=== PATIENT | female | born 1955 | race Caucasian/White ===

== ENCOUNTER → 2016-08-27 | Outpatient (CLI) | payer OTHER ==
[~2016-08-27] MED LIST: HYDR25TA4 PO; IBAN150T PO; LISI40TA PO
[2016-08-27 17:33] LABS: ALT/SGPT 23 U/L (12-78); AST/SGOT 17 U/L (15-37); BLOOD UREA NITROGEN 11 mg/dl (7-18); BUN/CREATININE RATIO 14.4 (10-20); CALCIUM 9.3 mg/dl (8.5-10.1); CARBON DIOXIDE 27 mmol/L (21-32); CHLORIDE 104 mmol/L (98-107); CREATININE 0.75 mg/dl (0.60-1.20); GLUCOSE 98 mg/dl (70-99); POTASSIUM 3.9 mmol/L (3.5-5.1); SODIUM 139 mmol/L (136-145)
[2016-08-27 17:36] LABS: ALB/GLOB RATIO 0.9 (0.9-2); ALKALINE PHOSPHATASE 91 U/L (45-117); BASO % 0.2 %; BASO ABS # 0.02 K/uL (0-0.2); CHOLESTEROL 226 mg/dl (0-200); CHOLESTEROL/HDL RATIO 2.7; COMPLETE YES; EOS % 2.2 %; HDL CHOLESTEROL 85 mg/dl; HEMATOCRIT 41.5 % (37-47); IG% 0.2 %; LDL CHOLESTEROL CALCULATED 117 mg/dl; LYMPH % 34.9 %; MEAN CELL VOLUME 85.9 fL (80-100); MEAN CORPUSCULAR HEMOGLOBIN 29.8 pg (25-34); MEAN CORPUSCULAR HGB CONC 34.7 g/dl (32-36); MEAN PLATELET VOLUME 9.1 fL (7.4-10.4); NEUT % 57.5 %; PLATELET COUNT 247 K/uL (130-400); RED BLOOD COUNT 4.83 M/uL (4.2-5.4); TRIGLYCERIDES 120 mg/dl (0-150); VERY LOW DENSITY LIPOPROT CALC 24 mg/dl; WHITE BLOOD COUNT 9.17 K/uL (4.8-10.8)
== END | disposition home or self-care (01) ==
LOC: C.LABBFT 16:50
PROVIDERS: ATTEND Internal Medicine
DX: I10 Essential (primary) hypertension (principal)

== ENCOUNTER → 2017-11-19 | Outpatient (CLI) | payer OTHER ==
--- NOTE | 2017-11-19 10:27 | DIAGNOSTIC IMAGING REPORT ---
AP PELVIS ONE VIEW, LEFT HIP 2 VIEWS HISTORY: M25.552 Hip pain, [id number] COMPARISON: None. FINDINGS: There is no fracture or dislocation. Soft tissues are unremarkable. The sacrum is intact. Mild right and moderate left hip osteoarthritis demonstrated by cartilage space narrowing, small marginal osteophytes, and subchondral sclerosis. IMPRESSION: 1. No fracture or dislocation within the pelvis or hips. 2. Moderate left and mild right hip osteoarthritis. Electronically signed by: Reggie Hernandez M.D. 11/19/2017 10:25 AM Dictated Date/Time: 11/19/2017 10:22 AM
[2017-11-19 10:40] LABS: BASO % 0.3 %; BASO ABS # 0.02 K/uL (0-0.2); EOS % 0.6 %; EOS ABS # 0.04 K/uL (0-0.5); HEMATOCRIT 41.7 % (37-47); HEMOGLOBIN 14.4 g/dL (12.0-16.0); IG# 0.01 K/uL (0.00-0.02); LYMPH % 37.7 %; LYMPH ABS # 2.49 K/uL (1.2-3.4); MEAN CELL VOLUME 88.3 fL (80-100); MEAN CORPUSCULAR HEMOGLOBIN 30.5 pg (25-34); MEAN CORPUSCULAR HGB CONC 34.5 g/dl (32-36); MEAN PLATELET VOLUME 9.1 fL (7.4-10.4); MONO % 6.5 %; MONO ABS # 0.43 K/uL (0.11-0.59); NEUT % 54.7 %; NEUT ABS # 3.62 K/uL (1.4-6.5); PLATELET COUNT 201 K/uL (130-400); RED CELL DISTRIBUTION WIDTH CV 12.7 % (11.5-14.5); RED CELL DISTRIBUTION WIDTH SD 40.7 fL (36.4-46.3); WHITE BLOOD COUNT 6.61 K/uL (4.8-10.8)
--- NOTE | 2017-11-19 10:41 | DIAGNOSTIC IMAGING REPORT ---
L-SPINE MIN 4 VIEWS ROUTINE CLINICAL HISTORY: Lumbar and left hip pain. COMPARISON: None FINDINGS: There are 5 lumbar type vertebra. Vertebral body heights are maintained. There is no fracture or suspicious lesion within the lumbar spine. There is slight indistinctness of L5 on S1. There is mild multilevel disc space narrowing and osteophytosis. Moderate multilevel facet arthrosis is present. IMPRESSION: 1. No acute lumbar spine fracture or subluxation. 2. Mild to moderate multilevel degenerative disc disease and facet arthrosis of the lumbar spine. Electronically signed by: Hakeem Daigle M.D. 11/19/2017 10:40 AM Dictated Date/Time: 11/19/2017 10:38 AM
[2017-11-19 11:05] LABS: ALBUMIN 3.5 gm/dl (3.4-5.0); ALKALINE PHOSPHATASE 107 U/L (45-117); ALT/SGPT 19 U/L (12-78); AST/SGOT 18 U/L (15-37); BLOOD UREA NITROGEN 9 mg/dl (7-18); CALCIUM 8.9 mg/dl (8.5-10.1); CARBON DIOXIDE 29 mmol/L (21-32); CHOLESTEROL 227 mg/dl (0-200); CREATININE 0.77 mg/dl (0.60-1.20); GLUCOSE 103 mg/dl (70-99); LDL CHOLESTEROL CALCULATED 131 mg/dl; POTASSIUM 4.2 mmol/L (3.5-5.1); SODIUM 138 mmol/L (136-145); TOTAL PROTEIN 7.9 gm/dl (6.4-8.2)
== END | disposition home or self-care (01) ==
LOC: C.RAD1850 09:40
PROVIDERS: ATTEND Physician Assistant Medical
DX: M16.0 Bilateral primary osteoarthritis of hip (principal); M51.36 Other intervertebral disc degeneration, lumbar region; M47.816 Spondylosis without myelopathy or radiculopathy, lumbar region; I10 Essential (primary) hypertension

== ENCOUNTER → 2018-01-21 | Outpatient (CLI) | payer OTHER | END | disposition home or self-care (01) | LOC: C.MAMM 15:41 | PROVIDERS: ATTEND Physician Assistant Medical | DX: M85.88 Other specified disorders of bone density and structure, other site (principal); M85.851 Other specified disorders of bone density and structure, right thigh ==

== ENCOUNTER → 2018-02-18 | Outpatient (CLI) | payer OTHER | END | disposition home or self-care (01) | LOC: C.LABBFT 14:25 | PROVIDERS: ATTEND Physician Assistant Medical | DX: M85.80 Other specified disorders of bone density and structure, unspecified site (principal) ==

== ENCOUNTER 2019-03-13 11:37 | Inpatient (IN) ==
--- NOTE | 2019-02-17 15:07 | PAT Medication Instructions ---
Medication Instructions Date of Service February 17, 2019 Home Medications diclofenac 1 % topical gel 2 gm TOPICAL QID PRN ergocalciferol (vitamin D2) 50,000 unit capsule 50,000 units PO WEEKLY irbesartan 300 mg tablet 300 mg PO QAM Continue as directed ergocalciferol (vitamin D2) 50,000 unit capsule 50,000 units PO WEEKLY STOP taking 24 hours before surgery diclofenac 1 % topical gel 2 gm TOPICAL QID PRN DO NOT take the morning of surgery irbesartan 300 mg tablet 300 mg PO QAM Other Notes If you have any questions please call us at [phone] or [phone] or [phone] or [phone]
--- NOTE | 2019-02-18 13:56 | Anesthesiology Consultation ---
Date of Service February 18, 2019 Assessment & Plan (1) Encounter for pre-operative examination: - Right reverse TSA: 05/26/18: Grade view 1, MAC#3, ETT 7.5 at [facility] - Primary language: Welsh; minimal Lebanese. OR made aware for healthcare interpreter AM DOS. Patient declined healthcare interpreter at PAT visit (information obtained from patient/gsxyxn-so-bbo Ramila). Chart Review Chart Review: Acceptable Risk for Surgery and Patient seen in Pre Admission Testing Teaching & Discussion Pre-Anesthesia Teaching/Discussion Notes: Instructed NPO after midnight before surgery,except medications with 15 cc of water. Medication instructions provided according to the [facility] guidelines. History Surgery Operation Date: 03/13/19 12:55 Proposed Procedures p Left Anterior Total Hip Arthroplasty - Joe Morrison DO Height/Weight Height: 5 ft 1.8 in Weight: 98.9 kg Allergies Allergy/AdvReac Type Severity Reaction Status Date / Time No Known Allergies Allergy Mild Verified 02/17/19 13:53 Medications Home Medications Medication Instructions Recorded Confirmed Last Taken diclofenac 1 % topical gel 2 gm TOPICAL QID PRN #1 gm 02/02/19 02/17/19 Unknown ergocalciferol (vitamin D2) 50,000 50,000 units PO WEEKLY #8 cap 02/02/19/ 0 Unknown unit capsule irbesartan 300 mg tablet 300 mg PO QAM #30 tab 02/02/19 02/17/19 Unknown Past Medical History Medical History Degenerative disc disease lumbar Hypertension OP (osteoporosis) Exercise / Class Metabolic Activity III < 4 Walking/Shop/Light housework Past Family History Family History Father Parkinsonism Stroke Mother Anemia Brother Bicuspid aortic valve Past Surgical History Surgical History History of total shoulder replacement Right reverse TSA: 05/26/18: Grade view 1, MAC#3, ETT 7.5 at [facility] Past Anesthesia History No Hx of Anesthesia Complications and No Family Hx of Anesthesia Complications History of PONV No Hx of PONV and No Hx of Motion Sickness Social History Smoking Status: Never smoker Do You Dip or Chew Tobacco: No Hx Alcohol Use: Yes Alcohol type: wine alcohol intake frequency: a few times a week Hx Substance Use: No substance use type: does not use Review of Systems Patient denies chest pain, shortness of breath, dyspnea on exertion, reflux, cough, wheezing, palpitations. Physical Exam Vital Signs VITALS BP 136/100 (manual recheck left: 136/90) P 77 TEMP 98.3 SP02 94%RA RESP 16 PHYSICAL Full neck and c-spine range of motion. Full TMJ range of motion. TMD 3 finger breaths Mallampati Score 3 Dentition: intact, permanent bridges on sides Lungs: clear throughout to auscultation Cardiac: regular rate and rhythm, I/ systolic murmur Spine: normal Carotid arteries: negative bruit Extremities: no edema Thick neck Testing Laboratory Results 02/18/19 14:19 02/18/19 14:19 PT 10.3 Seconds (9.0-12.0) 02/18/19 14:19 INR 1.0 (0.9-1.1) 02/18/19 14:19 APTT 25.7 Seconds (21.0-31.0) 02/18/19 14:19 Blood Type B Negative 02/18/19 14:19 Antibody Screen NEGATIVE 02/18/19 14:19 Electrocardiogram Date: 05/14/18 Findings: + NSR @ (63) Chest X-Ray Date: 05/14/18 Findings: + NAD Stress Test Date: 06/29/15 Type: exercise Resting EF: 60% Negative exercise stress echo for ischemia at 86% MPHR. Negative EKG. No chest pain. Hypertensive BP response with exercise. Occasional non-sustained runs of SVT at peak exercise. Baseline cho notes normal LV function; no significant valvular pathology.
[2019-02-18 15:02] LABS: Basophils # (auto) 0.02 K/uL (0-0.2); Basophils % (auto) 0.2 %; Eosinophils # (auto) 0.03 K/uL (0-0.5); Eosinophils % (auto) 0.3 %; Hematocrit (blood only) 42.1 % (37-47); Hemoglobin 14.9 g/dL (12.0-16.0); Immature Granulocytes # (auto) 0.01 K/uL (0.00-0.02); Immature Granulocytes % (auto) 0.1 %; Lymphocytes # (auto) 2.77 K/uL (1.2-3.4); Lymphocytes % (auto) 29.1 %; Mean Corpuscular Hgb Conc 35.4 g/dL (32-36); Mean Corpuscular Volume 85.6 fL (80-100); Mean Platelet Volume 8.6 fL (7.4-10.4); Monocytes # (auto) 0.48 K/uL (0.11-0.59); Neutrophils # (auto) 6.21 K/uL (1.4-6.5); Neutrophils % (auto) 65.3 %; Platelet Count 236 K/uL (130-400); RDW Coefficient of Variation 12.8 % (11.5-14.5); RDW Standard Deviation 40.1 fL (36.4-46.3); Red Blood Count 4.92 M/uL (4.2-5.4); White Blood Count 9.52 K/uL (4.8-10.8)
[2019-02-18 15:11] LABS: Est GFR (African American) 96.6; Est GFR (Non-African American) 83.3
[2019-02-18 15:17] LABS: Partial Thromboplastin Ratio 0.9; Partial Thromboplastin Time 25.7 Seconds (21.0-31.0); Prothrombin Time 10.3 Seconds (9.0-12.0)
--- NOTE | 2019-03-13 06:36 | History & Physical Report ---
Date of Service March 13, 2019 Assessment & Plan (1) Osteoarthritis of left hip: We will proceed with a left anterior total hip arthroplasty. Postoperatively she will be started on aspirin for DVT prophylaxis. She will be kept overnight in the hospital for postop medical management. She plans to use [employer] upon discharge. Present on Admission?: Yes History of Present Illness Chief Complaint: Primary osteoarthritis of the left hip Primary Care Provider: Venkat Cedeno MD The patient is a pleasant 63-year-old female who is been dealing with a year long history of increasing left hip and groin pain. She has done an intra- articular injection of her hip which has helped but unfortunately did not last long. Her pain is becoming more debilitating. X-rays and clinical examination have been diagnostic for primary osteoarthritis of her left hip. After failing conservative treatment, she has elected to proceed with a left anterior total hip arthroplasty. Allergies Allergy/AdvReac Type Severity Reaction Status Date / Time alendronate sodium AdvReac Mild GI Verified 03/09/19 10:32 [From Fosamax] Upset/Myalgia Home Medications Home Medications Medication Instructions Recorded Confirmed Type diclofenac 1 % topical gel 2 gm TOPICAL QID PRN #1 gm 02/02/19 02/17/19 History ergocalciferol (vitamin D2) 50,000 50,000 units PO WEEKLY #8 cap 02/02/19 02/17/19 History unit capsule irbesartan 300 mg tablet 300 mg PO QAM #30 tab 02/02/19 02/17/19 History Past Med/Surg History Medical History Degenerative disc disease lumbar Hypertension OP (osteoporosis) Surgical History History of total shoulder replacement Right reverse TSA: 05/26/18: Grade view 1, MAC#3, ETT 7.5 at [facility] Family History Father Parkinsonism Stroke Mother Anemia Brother Bicuspid aortic valve Social History Preferred Language: [place] Communication Ability: Effective Knitter Hand Required: Yes Beliefs That Will Affect Care: None marital status: Current Living Situation: Spouse Current Living Situation Comment: Feels Safe at Home: Yes Smoking Status: Never smoker Second Hand Exposure: No ; Hx Alcohol Use: Yes Alcohol type: wine Hx Substance Use: No Review of Systems All systems reviewed & are unremarkable except as noted in HPI & below Physical Exam Constitutional: WD/WN, vitals as above Eyes: PERRL, conjunctivae normal, anicteric sclerae ENMT: external ear and nose normal, oropharynx normal Neck: trachea midline, no thyromegaly Respiratory: normal respiratory effort Cardiovascular: RRR, no murmur, no edema Gastrointestinal (Abdomen): normal bowel sounds, soft, nontender, no hepatosplenomegaly Musculoskeletal: Physical examination of the left hip reveals decreased range of motion with flexion, internal and external rotation. There is significant groin pain with forced internal rotation of the hip his leg lengths are essentially equal. Psychiatric: A+Ox3, euthymic affect Results & Data Diagnostic Findings Radiographs of the left hip and pelvis demonstrate advanced osteoarthritis with joint space narrowing osteophyte formation and [id number] articulation.
--- NOTE | 2019-03-13 11:28 | History & Physical Bridge Note ---
Date of Service March 13, 2019 History & Physical Bridge Note I have examined the patient, reviewed the History & Physical and in the interval since the performance of the History & Physical I have noted the following changes of clinical significance: no changes noted
[~2019-03-13 11:37] MED LIST changes: +ACETAMINOPHEN 500 MG TAB PO SCH; +BUPIVACAINE 0.5 % 5 MG/1 ML PF 10ML VIAL ONE; +CEFAZOLIN 2000MG 2,000 MG/15 ML SYR IV SCH; +CeleBREX 200 MG CAP PO SCH; +FAMOTIDINE 20 MG TAB PO SCH; +GABAPENTIN 600 MG DOSE PO SCH; -HYDR25TA4 PO; -IBAN150T PO; +LIDOCAINE HCL 2% 2 ML VIAL/AMP(20MG/ML) INFIL ONE; -LISI40TA PO; +LR 500ML BOLUS, THEN 15ML/HR IV SCH; +LR 60ML/HR IV SCH; +MIDAZOLAM HCL 1 MG/ML 2ML VIAL ONE; +PROPOFOL IV EMULSION 10 MG/ML 20 ML VIAL IV ONE; +ROPIVACAINE 0.5% HCL/PF 150 MG, BUPIVACAINE 0.5% MPF 30 ML, EPINEPHrine 30MG/30ML (OR U... INFIL SCH; +TRANEXAMIC ACID 1,000 MG **IV Intra-op IV SCH; +TRANEXAMIC ACID 1,000 MG **IV Pre-op IV SCH; +fentaNYL citrate 100 MCG/2 ML VIAL ONE
[2019-03-13] MEDS ORDERED: HYDROmorphone INJ 1 MG/ML SYRINGE IV PRN (12:14)
[2019-03-13] MEDS ORDERED: ATROPINE SULFATE 0.1 MG/ML 10ML SYR IV PRN (12:14)
[2019-03-13] MEDS ORDERED: fentaNYL citrate 100 MCG/2 ML VIAL IV PRN (12:14)
[2019-03-13] MEDS ORDERED: ePHEDrine sulfate 50 MG/ML AMP IV PRN (12:14)
[2019-03-13] MEDS ORDERED: ONDANSETRON INJ 2 MG/ML 2 ML VIAL IV PRN ×2 (12:14→16:35)
[2019-03-13] MEDS ORDERED: MIDAZOLAM HCL 1 MG/ML 2ML VIAL ONE (13:34)
[2019-03-13] MEDS ORDERED: ePHEDrine sulfate 50 MG/ML AMP ONE (13:58)
[2019-03-13] MEDS ORDERED: PHENYLEPHRINE HCL 10 MG/ML VIAL ONE (13:58)
--- NOTE | 2019-03-13 15:13 | Operative Report ---
Post Operative Report Pre & Post Diagnosis Operation Date: 03/13/19 13:40 Pre-Op Diagnosis: Left Hip Primary Osteoarthritis Post-Op Diagnosis: Left Hip Primary Osteoarthritis Procedure Operation Date: 03/13/19 13:40 Actual Procedures p Left Anterior Total Hip Arthroplasty--Uncemented(Left) - Joe Morrison DO Surgeon Joe Morrison DO Navigating Officer Joe Wilson PAC Estimated Blood Loss 250 Findings Consistent with Post-Op Diagnosis Specimens Left femoral head Complications none Disposition Disposition: Recovery Room Indications The patient is a pleasant 63-year-old female who presented my office with complaints of chronic increasing left groin pain. X-rays and clinical e xamination were diagnostic for primary osteoarthritis of the left hip. After failing conservative treatment, including injections, she elected to proceed with a left anterior total hip arthroplasty. Description of Procedure Implants used Biomet Taperloc total hip arthroplasty system with a size 10 standard offset Taperloc stem, a 52 mm G7 cup with a 25mm screw, an E1 polyethylene liner, a 36 mm ceramic head with a -3 neck. Patient arrived at the hospital for the above procedure. They were seen in the preoperative holding area and the operative extremity was identified and signed. They were given a spinal anesthetic. They were given a preoperative antibiotic and TXA. They were taken back To the operating room and laid on the table in the supine position. The leg was brought out through a Puristst leg positioner. The hip was then prepped and draped in sterile fashion. A timeout was done and the patient in upper extremities properly identified. An anterior approach was used. Dissection was taken down through the fascia and the tensor muscle belly was retracted laterally and the rectus was retracted medially. The circumflex vessels were identified and ligated. The capsule was then incised and tagged for later repair. The femoral neck was then cut and the femoral head was removed. The acetabulum was exposed. Time was spent doing a complete circumferential labral release. Sequential reaming of the acetabulum up to a size 51 reamer was done. Final reamings were done under fluoroscopy to ensure appropriate version. A Biomet 52 mm G7 cup was then impacted into place. A single 25 mm screw was placed. The E1 polyethylene liner was then snapped into place. Surrounding soft tissues were then injected with 100 cc of an orthopedic pain control cocktail. The proximal femur was then exposed. Sequential broaching up to a size 10 broach was done. Off that broach a size 36 head with a -3 neck was trialed. The hip was reduced and fluoroscopic images showed anatomic alignment of the implants in acceptable length. The broach was removed. The final size 10 standard offset Taperloc stem was then impacted into place. A ceramic 36 mm head with a -3 neck was then impacted into place in the hip was reduced. Final fluoroscopic images showed anatomic reduction of the hip. The capsule was then closed with #1 Vicryl suture. A dilute betadyne lavage was then done for 3 minutes. The joint was then irrigated with normal saline solution. The fascia was closed with #1 PDS suture. Skin was closed with 2-0 Vicryl, debi, and a Mae VAC dressing. The patient was then transferred to a hospital bed and taken to the post anesthesia care unit in stable condition. They tolerated the procedure well. I attest to the content of the Intraoperative Record and any orders documented therein. Any exceptions are noted below.
--- NOTE | 2019-03-13 15:24 | Fluoroscopy Report ---
FL hip LT 1V CLINICAL HISTORY: LEFT ANTERIOR HIPtotal hip replacement COMPARISON STUDY: 12/29/2018 FLUOROSCOPY TIME: 32 seconds NUMBER OF FLUOROSCOPIC IMAGES: 2 FINDINGS: Image intensifier support for a left total hip arthroplasty. IMPRESSION: Image intensifier support for a total left hip arthroplasty. The above report was generated using voice recognition software. It may contain grammatical, syntax or spelling errors. Electronically signed by: Basil Jimenez M.D. 03/13/2019 3:22 PM
--- NOTE | 2019-03-13 16:19 | Anesthesiology Progress Note ---
Date of Service March 13, 2019 Anesthesia Post Procedure Vital Signs Vital Signs: Temp Pulse Pulse Resp BP BP Pulse Ox 03/13/19 16:10 36.6 C 58 L 16 109/82 99 03/13/19 16:00 61 16 117/83 99 03/13/19 15:50 64 16 122/73 99 03/13/19 15:44 36.6 C 68 16 114/72 96 03/13/19 13:04 36.8 C 88 18 166/96 H 97 Pain Intensity Left Hip: Pain Intensity: 6 Transfer of Care Handoff Completed per policy Notes Mental Status: alert / awake / arousable Patient Amnestic to Procedure: Yes Nausea / Vomiting: adequately controlled Pain: adequately controlled Airway Patency, RR, SpO2: stable & adequate BP & HR: stable & adequate Hydration State: stable & adequate Neuraxial Anesthesia: was administered and sensory block is resolving Anesthetic Complications: no major complications apparent
[2019-03-13] MEDS ORDERED: MAGNESIUM HYDROXIDE SUSP 30 ML UDC PO PRN (16:35)
[2019-03-13] MEDS ORDERED: METOCLOPRAMIDE HCL INJ 5 MG/ML 2 ML VIAL IV PRN (16:35)
[2019-03-13] MEDS ORDERED: BISACODYL 10 MG SUPP PR PRN (16:35)
[2019-03-13] MEDS ORDERED: HYDROmorphone INJ 0.5 MG/0.5 ML SYR IV PRN (16:35)
[2019-03-13] MEDS ORDERED: OXYCODONE HCL IR 5 MG TAB (IMMEDIATE RELEASE) PO PRN (16:35)
[2019-03-13] MEDS ORDERED: NALOXONE HCL 0.4 MG/1 ML VIAL/CARP IV PRN (16:35)
--- NOTE | 2019-03-13 16:42 | XRay Report ---
XR hip 1V LT w pelvis CLINICAL HISTORY: Postoperative evaluation. COMPARISON: Pelvis radiograph February 03, 2019. FINDINGS: Alignment of the total left hip arthroplasty is anatomic. There is no fracture or unexpect ed radiopaque foreign body. There are skin debi. IMPRESSION: Expected findings following total left hip arthroplasty. Electronically signed by: Hakeem Daigle M.D. 03/13/2019 4:40 PM
[2019-03-13] MEDS: SODIUM CHLORIDE 0.9% 1000ML 1,000 ML IV SCH (17:09)
[2019-03-13] MEDS: KETOROLAC 30 MG/ML VIAL IV SCH ×2 (18:37→23:48)
[2019-03-13] MEDS: DOCUSATE SODIUM 100 MG CAP PO SCH (19:58)
[2019-03-13] MEDS: ASPIRIN 81 MG ECTAB PO SCH (20:26)
[2019-03-13] MEDS ORDERED: SENNA 8.6 MG TAB PO SCH (21:00)
[2019-03-13] MEDS: ACETAMINOPHEN 500 MG TAB PO SCH (21:12)
[2019-03-13] MEDS: CEFAZOLIN 2000MG 2,000 MG/15 ML SYR IV SCH (22:16)
[2019-03-14] MEDS: SODIUM CHLORIDE 0.9% 1000ML 1,000 ML IV SCH (03:13)
[2019-03-14] MEDS: KETOROLAC 30 MG/ML VIAL IV SCH ×2 (05:59→11:30)
[2019-03-14] MEDS: ACETAMINOPHEN 500 MG TAB PO SCH (05:59)
[2019-03-14] MEDS: CEFAZOLIN 2000MG 2,000 MG/15 ML SYR IV SCH (05:59)
[2019-03-14 06:04] LABS: Basophils # (auto) 0.02 K/uL (0-0.2); Basophils % (auto) 0.2 %; Hematocrit (blood only) 35.7 % (37-47); Hemoglobin 11.9 g/dL (12.0-16.0); Immature Granulocytes # (auto) 0.02 K/uL (0.00-0.02); Immature Granulocytes % (auto) 0.2 %; Lymphocytes # (auto) 1.43 K/uL (1.2-3.4); Lymphocytes % (auto) 11.3 %; Mean Corpuscular Hgb Conc 33.3 g/dL (32-36); Mean Corpuscular Volume 88.8 fL (80-100); Mean Platelet Volume 8.9 fL (7.4-10.4); Monocytes # (auto) 0.96 K/uL (0.11-0.59); Monocytes % (auto) 7.6 %; Neutrophils # (auto) 10.21 K/uL (1.4-6.5); Neutrophils % (auto) 80.7 %; Platelet Count 206 K/uL (130-400); RDW Coefficient of Variation 12.9 % (11.5-14.5); RDW Standard Deviation 42.1 fL (36.4-46.3); Red Blood Count 4.02 M/uL (4.2-5.4); White Blood Count 12.64 K/uL (4.8-10.8)
[2019-03-14 06:34] LABS: BUN Creatinine Ratio 14.6 (10-20); Calcium 8.2 mg/dl (8.5-10.1); Creatinine Clr Calc Pharmacy 87.2 ml/min; Est GFR (African American) 101.3; Est GFR (Non-African American) 87.4; Potassium 4.2 mmol/L (3.5-5.1)
[2019-03-14] MEDS: DOCUSATE SODIUM 100 MG CAP PO SCH (08:43)
[2019-03-14] MEDS: ASPIRIN 81 MG ECTAB PO SCH (08:43)
[2019-03-14] MEDS ORDERED: MULTIVITAMIN TAB PO SCH (09:00)
[2019-03-14] MEDS ORDERED: IRBESARTAN 150 MG TAB PO SCH (09:00)
--- NOTE | 2019-03-14 09:14 | Orthopedic Progress Note ---
Date of Service March 14, 2019 Assessment & Plan (1) Osteoarthritis of left hip: Overall she is doing very well. She is not having much pain in the right hip. She is already been up and ambulating. She is on aspirin for DVT prophylaxis. She will be seen by physical therapy this morning. She will be discharged home later this morning. She will follow-up with orthopedics in 2 weeks. Present on Admission?: Yes Subjective The patient was seen and examined at bedside this morning. Overall she is doing very well. She is not having much pain in the left hip. She is been up and ambulating. She has no complaints. Physical Exam Musculoskeletal: On physical examination of the left hip, the Mae VAC dressing is to suction. Her leg lengths are equal. She is active dorsiflexion and plantarflexion of the left ankle. Results & Data Vital Signs (Past 12 Hours) Vital Signs Temp Pulse Resp BP BP Pulse Ox 03/14/19 08:00 36.6 C 73 16 119/71 96 03/14/19 03:23 36.5 C 67 18 121/78 97 03/13/19 23:32 36.7 C 68 18 101/65 94 Laboratory Results H & H 02/18/19 03/14/19 Range/Units 14:19 05:25 Hgb 14.9 11.9 L (12.0-16.0) g/dL Hct 42.1 35.7 L (37-47) % Coagulation 02/18/19 Range/Units 14:19 INR 1.0 (0.9-1.1) Diagnostic Findings Postoperative x-rays of the left hip show the prosthesis to be in anatomic alignment without any evidence of fracture, dislocation, or loosening. PG Care Time/CCT Total # of Minutes Spent Total Time Spent with Patient: Total time spent is greater than 50% in coordination of care (as documented) at patient's floor/unit and/or counseling patient:
--- NOTE | 2019-03-14 09:16 | Discharge Summary ---
Date of Service March 14, 2019 Admission HPI Per Admitting Provider The patient is a pleasant 63-year-old female who is been dealing with a year long history of increasing left hip and groin pain. She has done an intra- articular injection of her hip which has helped but unfortunately did not last long. Her pain is becoming more debilitating. X-rays and clinical examination have been diagnostic for primary osteoarthritis of her left hip. After failing conservative treatment, she has elected to proceed with a left anterior total hip arthroplasty. Principal Diagnosis Left total hip arthroplasty Discharge Data Allergies Allergy/AdvReac Type Severity Reaction Status Date / Time alendronate sodium AdvReac Mild GI Verified 03/13/19 12:11 [From Fosamax] Upset/Myalgia Consultations 03/14/19 08:00 Consult Case Management - Discharge Planning Routine Procedures Performed Operation Date: 03/13/19 13:40 Actual Procedures p Left Anterior Total Hip Arthroplasty--Uncemented(Left) - Joe Morrison DO Ordered Studies 03/13/19 13:40 FL fluoroscopy <1hr Routine FL hip LT 1V Routine Hospital Course (1) Osteoarthritis of left hip: On March 13, [address] at [facility] and underwent a left anterior total hip arthroplasty without complication. She had a spinal anesthetic. Postoperatively she was started on aspirin for DVT prophylaxis and discharged to general orthopedic floors. Her hospital course was uneventful. On postop day #1 her H&H was stable and her pain was well controlled. She was able to ambulate well with physical therapy. She was then discharged home. She will follow-up with orthopedics in 2 weeks. Total Time Total Time Spent Total Time Spent (In Minutes): 20 Discharge Plan Discharge Items Patient Disposition: Home - Home Health Services Reason For Visit: Left Hip Degenerative Joint Disease Discharge Diagnosis: Left total hip arthroplasty Activity: As commented below Non-emergency contact: Surgeon Call non-emergency contact if: your wound has increased redness and your wound has increased drainage Follow-up/Referrals: Venkat Cedeno III, MD [Primary Care Provider] - Diet: Regular Addtl Attending Provider Instructions: Activity and Therapy Recommendations: * If you are using [facility] then therapy will be provided at your home until they feel you have accomplished all of your goals. * If you are using [facility] then Physical Therapy will be provided until they feel you are ready to start Outpatient Physical Therapy. * If you are not using home therapy then Outpatient Physical Therapy should start about 3-5 days from your day of surgery. Therapy will last about 6-10 weeks * You were shown a series of exercises in the hospital. Do these exercises three times each day including the exercises you were shown in physical therapy. * Get up and walk several times each day.~ For the first four weeks, try not to stand or walk for more than one hour at a time. If you do stand or walk for more than one hour, you will not hurt anything, but your leg will likely swell.~~ * As you feel comfortable, you may change from the walker or crutches to a cane and~then to independent walking. Medications: * Narcotic You will likely be sent home from the hospital with a prescription for the narcotic pain medication that worked best throughout your stay. * Aspirin Most patients will be required to take Aspirin 81mg twice a day for 6 weeks after surgery. This is obtained [id number] and a prescription is not necessary. * Other medications may be prescribed for specific circumstances. If you have any questions, please call the office at . * Resume previous home medications unless otherwise instructed TEDs/Elastic Stockings: The white elastic stockings help limit swelling and prevent blood clots from forming in your legs. The more you wear them, the more they work. Wear them for six weeks. Dressing Care: You will likely have a purple VAC dressing after surgery. This dressing will keep the incision dry and promote early healing. After about 7 days the batteries will wear out and the VAC will lose suction. Simply remove the dressing at that time and throw everything away, including the small suction machine. Then, you may leave the debi open to air or cover them with a dry dressing so they do not rub on your pants. The debi will be removed at your 2 week follow-up appointment. Showering: You may shower immediately with the purple VAC dressing. Let the shower spray hit your opposite side and slowly pat the plastic dry. Do not soak the dressing. After the dressing is removed you may shower normally with the debi exposed. Let soapy water run over the debi and pat them dry. Things To Watch For: * Drainage from the incision site that occurs more than one week after your surgery. * Increased redness at the incision site. * Fever above 102 degrees Fahrenheit. * Unusual chest pain or shortness of breath. * Call [facility] at with any of the above problems Follow-Up Visit: Follow-up with Dr. Morrison 2-3 weeks after your day of surgery. An appointment was probably scheduled when you signed-up for surgery in the office. If you have any questions call Office Instructions: More detailed instructions as well as Frequently Asked Questions were provided in a folder by our office when you signed-up for surgery. Please review these instructions when you get home. If you have any further questions or concerns, please feel free to call the office at [phone] Pending Studies at Discharge: No Stand-Alone Forms: My [facility] Medications and DC Order Prescriptions: New oxycodone 5 mg Tablet 5 mg PO Q4H PRN (Reason: pain) Qty: 40 RF: 0 aspirin [Ecotrin Low Strength] 81 mg Tablet,Delayed Release (Dr/Ec) 81 mg PO BID Qty: 84 RF: 0 Continued ergocalciferol (vitamin D2) 50,000 unit capsule 50,000 units PO WEEKLY Qty: 8 RF: 0 irbesartan 300 mg tablet 300 mg PO QAM Qty: 30 RF: 0 diclofenac sodium 1 % gel 2 gm topical QID PRN (Reason: AFFECTED SHOULDER) Qty: 1 RF: 0 Discharge Orders: Discharge Order (Routine); Ordered 03/14/19 Ordered By: Joe Morrison Admission Data Admit Date/Time: 03/13/19 15:45 Attending Provider: Joe Morrison Admit Provider: Joe oMrrison Primary Care Provider: Venkat Cedeno III
== END 2019-03-14 13:36 | disposition home health service (06) | DRG 470 ==
LOC: ASU 11:37 → 3E 15:45
DX: M16.12 Unilateral primary osteoarthritis, left hip; Z79.899 Other long term (current) drug therapy; I10 Essential (primary) hypertension

== ENCOUNTER 2021-01-26 11:47 | Inpatient (IN) ==
--- NOTE | 2021-01-23 09:27 | Anesthesiology Consultation ---
Date of Service January 23, 2021 Assessment & Plan (1) Encounter for pre-operative examination: Chart Review Chart Review: Acceptable Risk for Surgery (pending preop Covid testing results ) and Patient NOT seen in Pre Admission Testing Patient's preferred language is Russianinterpreter will be required DOS Per nursing assessment 01/23/2021, patient denies any recent travel. No known Covid infection in the past 90 days. Patient is not vaccinated for Covid. No known Covid positive contacts or Covid related symptoms. Preop Covid testing scheduled 01/24/21= will await results. Right anterior ANISH= Done under SAB. No anesthesia issues noted per anesthesia record. Right total shoulder replacement reverse type 05/26/18 = done under [facility] with grade 1 view with MAC #3. History Surgery Operation Date: 01/26/21 07:15 Proposed Procedures p Open Low Anterior Colon Resection - Jose Bueno, DO Height/Weight Height: 5 ft 1 in Weight: 90.265 kg Allergies Allergy/AdvReac Type Severity Reaction Status Date / Time alendronate sodium AdvReac Mild GI Verified 01/23/21 08:27 [From Fosamax] Upset/Myalgia Medications Home Medications Medication Instructions Recorded Confirmed Last Taken irbesartan 300 mg tablet 300 mg PO QAM 01/04/21 01/23/21 01/09/21 19:00 polyethylene glycol 3350 17 17 g PO DAILY #850 g 01/10/21 01/23/21 Unknown gram/dose oral powder (Miralax) ibuprofen 200 mg tablet (Advil) 200 mg PO DAILY PRN 01/23/21 01/23/21 Unknown Past Medical History Medical History Cholelithiasis Degenerative disc disease lumbar History of COVID-19 09/2020; fatigue, poor appetite, generalized weakness, body aches; resolved Hypertension OP (osteoporosis) Rectal mass (~01/10/21) rectal stent placed during colonoscopy Past Family History Family History Father Parkinsonism Stroke Mother Anemia Colorectal cancer Brother Bicuspid aortic valve Other No family history of adverse response to anesthesia Past Surgical History Surgical History History of colonoscopy History of left hip replacement History of total shoulder replacement Right reverse TSA: 05/26/18: Grade view 1, MAC#3, ETT 7.5 at [facility] Social History Smoking Status: Never smoker Do You Dip or Chew Tobacco: No Hx Alcohol Use: Yes Alcohol type: wine alcohol intake frequency: holidays/special occasions only Hx Substance Use: No substance use type: does not use Lab Results Anesthesia Preop Results Results Anesthesia Widget: WBC 6.44 K/uL (4.8-10.8) 01/10/21 Hgb 11.7 g/dL (12.0-16.0) L 01/10/21 Hct 35.5 % (37-47) L 01/10/21 Plt 226 K/uL (130-400) 01/10/21 Na 140 mmol/L (136-145) 01/10/21 K 3.7 mmol/L (3.5-5.1) 01/10/21 Cl 109 mmol/L (98-107) H 01/10/21 CO2 23 mmol/L (21-32) 01/10/21 BUN 8 mg/dl (7-18) 01/10/21 Creat 0.59 mg/dl (0.6-1.2) L 01/10/21 Glucose Level 102 mg/dl (70-99) H 01/10/21 PT 10.5 Seconds (9.0-12.0) 01/10/21 INR 1.0 (0.9-1.1) 01/10/21 Testing Electrocardiogram Date: 01/17/21 Findings: + NSR @ (70 bpm) Normal EKG per cardio Stress Test Date: 06/29/15 Type: exercise Resting EF: 60% Negative exercise stress echo for ischemia at 86% MPHR. Negative EKG. No chest pain. Hypertensive BP response with exercise. Occasional non-sustained runs of SVT at peak exercise. Baseline echo notes normal LV function; no significant valvular pathology. Other Testing Chest CT 01/17/2021 = motion compromised study. No evidence of intrathoracic metastasis given the technical limitations of the examination. Possible splenomegaly. 18 mm left breast nodulefurther work-up with diagnostic breast center recommended. Moderate respiratory motion artifact. No focal pulmonary consolidation. No suspicious pulmonary masses.
[~2021-01-26 11:47] MED LIST changes: -ACETAMINOPHEN 500 MG TAB PO SCH; -BUPIVACAINE 0.5 % 5 MG/1 ML PF 10ML VIAL ONE; -CEFAZOLIN 2000MG 2,000 MG/15 ML SYR IV SCH; +CIPROFLOXACIN / D5W 400 MG/200 ML BAG IV SCH; -CeleBREX 200 MG CAP PO SCH; -FAMOTIDINE 20 MG TAB PO SCH; -GABAPENTIN 600 MG DOSE PO SCH; +HEPARIN SOD 5,000 UNIT/0.5 ML VIAL SC SCH; -LIDOCAINE HCL 2% 2 ML VIAL/AMP(20MG/ML) INFIL ONE; +LR 15ML/HR IV SCH; -LR 500ML BOLUS, THEN 15ML/HR IV SCH; -LR 60ML/HR IV SCH; -MIDAZOLAM HCL 1 MG/ML 2ML VIAL ONE; -PROPOFOL IV EMULSION 10 MG/ML 20 ML VIAL IV ONE; -ROPIVACAINE 0.5% HCL/PF 150 MG, BUPIVACAINE 0.5% MPF 30 ML, EPINEPHrine 30MG/30ML (OR U... INFIL SCH; -TRANEXAMIC ACID 1,000 MG **IV Intra-op IV SCH; -TRANEXAMIC ACID 1,000 MG **IV Pre-op IV SCH; -fentaNYL citrate 100 MCG/2 ML VIAL ONE; +metroNIDAZOLE 500 MG/100 ML BAG IV SCH
--- NOTE | 2021-01-26 11:55 | History & Physical Bridge Note ---
Date of Service January 26, 2021 History & Physical Bridge Note I have examined the patient, reviewed the History & Physical and in the interval since the performance of the History & Physical I have noted the following changes of clinical significance: no changes noted
[2021-01-26] MEDS ORDERED: ROCURONIUM BROMIDE 10 MG/ML 5 ML VIAL IV ONE ×2 (14:48→17:22)
[2021-01-26] MEDS ORDERED: PROPOFOL IV EMULSION 10 MG/ML 20 ML VIAL IV ONE (14:48)
[2021-01-26] MEDS ORDERED: fentaNYL citrate 100 MCG/2 ML VIAL ONE ×6 (14:49→19:52)
[2021-01-26] MEDS ORDERED: MIDAZOLAM HCL 1 MG/ML 2ML VIAL ONE (14:49)
[2021-01-26] MEDS ORDERED: BUPIVACAINE 0.5 % 5 MG/1 ML MPF 30ML VIAL ONE (15:26)
[2021-01-26] MEDS ORDERED: BUPIVACAINE LIPOSOME 1.3% 266 MG/20 ML VIAL ONE (15:32)
[2021-01-26] MEDS ORDERED: GLYCOPYRROLATE 0.2 MG/ML VIAL ONE ×2 (15:46→19:01)
[2021-01-26] MEDS ORDERED: ONDANSETRON INJ 2 MG/ML 2 ML VIAL ONE ×2 (15:46→19:52)
[2021-01-26] MEDS ORDERED: LIDOCAINE 2% 2 ML VIAL/AMP(20MG/ML) INFIL ONE (15:46)
[2021-01-26] MEDS ORDERED: DEXAMETHASONE SOD INJ 4 MG/ML VIAL ONE (15:46)
[2021-01-26] MEDS ORDERED: ACETAMINOPHEN 1000 MG/100 ML IV IV ONE (15:50)
[2021-01-26] MEDS ORDERED: NEOSTIGMINE METHYLSULFATE 1 MG/ML 10ML VIAL ONE (19:01)
--- NOTE | 2021-01-26 19:27 | Operative Report ---
PG Post Operative Report Pre & Post Diagnosis Operation Date: 01/26/21 14:35 Pre-Op Diagnosis: Colon Cancer Post-Op Diagnosis: Colon Cancer x 2 I identified the patient and participated in the time-out.: Yes Procedure Operation Date: 01/26/21 14:35 Actual Procedures p Open Low Anterior Colon Resection - Jose Bueno DO Surgeon Jose Bueno DO Manufacturing Laborer inocencio Sommer Estimated Blood Loss 100 Findings Consistent with Post-Op Diagnosis Specimens sigmoid and rectum, portion of left colon Description of Procedure After informed consent was obtained the patient was taken to the operating room and placed in supine position. After successful intubation a Vaughn catheter was placed. The patient's arms were tucked and she was placed into a low lithotomy position. Entire abdomen and perineum were sterilely prepped and draped in usual fashion. I began with a midline incision from just above the pubic symphysis up to and around the umbilicus. This was carried down through soft tissue using cautery. Anterior fascia was opened using cautery as well. Peritoneum was elevated with hemostats and incised under direct vision using a Metzenbaum scissor. The incision was then opened to both poles using cautery. A Bookwalter retractor was used throughout the case to help with exposure. Once in the abdomen we began examining the left and sigmoid colon. Immediately we noted a mass in the sigmoid colon which was not known to us previously. Apparently they were unable to traverse the lower mass and this mass was not identified. We began by mobilizing the left colon and sigmoid colon along the white line of Toldt. We carried this down over the pelvic brim. I was unable to identify any tattoo rich however I was able to palpate the rectal intraluminal stent. I transected the left colon about 6 cm proximal to the proximal most mass. This was performed with a NAV purple cartridge stapler. After mobilizing the mesentery we took the mesentery down using the LigaSure device. We continued and carried this down over the sacral promontory and down into the pelvis. We used finger fractionation as well as a LigaSure device throughout. We were able to identify the left ureter to keep it out of harm's way. Once we were down into the pelvis I continued to use primarily blunt dissection. I took the lateral pedicles using the LigaSure. We were able to palpate the distal end of the stent however the rectum in this region was quite thick. It was going to be very difficult to get a stapling device around it. Therefore I made a small enterotomy in the sigmoid colon proximal to the stent and we remove the stent. I will note that we did not have any spillage during this process. We closed the colonic enterotomy using 3-0 silk in a running fashion. At this point I changed my gloves. After doing this I was able to get multiple firings of a NAV black cartridge 45 mm stapler to transect the rectosigmoid just distal to the region where the stent was. Once I had the rectosigmoid removed I opened it on the back table. I was unhappy with the margins. I rechanged my gown and gloves and scrubbed back into the abdominal portion of the case. I had my physician retail assistant store manager use a colon sizer to manipulate the rectal stump. With the rectosigmoid colon removed and out of my way I was able to dissect further down the rectum towards the anus. The lesion was much lower than anticipated. I expected the lesion to be at around 12 cm it was actually at about 4 to 5 cm. After freeing up more rectal stump I transected it using some additional black cartridge linear staplers. Once this was removed I still was unhappy with the appearance of this additional distal margin. This was sent with the left colon and sigmoid colon as additional distal margin however I continued to free up more rectum. I took a third firing this time about a centimeter to 2 cm distal to the second staple line. This was marked with a silk stitch and sent as the second distal margin. I was quite happy with this margin as well as with the staple line. My PA scrubbed back into the abdomen. We had to free up the entire left colon including the splenic flexure over to the mid transverse. Once we did this we then clamped of the bowel and remove the staple line. 2-0 silk was used to create a pursestring suture around it. The anvil of a 25 mm circular stapler was placed into the lumen of the bowel and secured using the pursestring. This then laid nicely down over the pelvic brim down to the rectal stump without tension. We then brought the handle of the 25 mm circular EEA in through the rectal stump. The spike was deployed. The handle was connected to the anvil they were secured together and fired creating an end-to-end anastomosis. Both donuts were intact. We sent the distal donut as even more additional distal margins. We then filled the pelvis with fluid and I clamped off the left colon and we insufflated the anastomosis under water with a rigid sigmoidoscope. It was airtight with no evidence of anastomotic leak. We thoroughly irrigated the pelvis and lower half of the abdomen. There was adequate hemostasis. A 19 round Morales drain was placed into the pelvis and brought out through a separate stab incision and secured to skin using 2-0 silk. There was no palpable evidence of metastatic disease or no clinically positive lymph nodes that we could see or feel. No other gross abnormalities were noted. A final irrigation was performed. We then closed the fascia using 0- looped PDS starting either pole l running them and securing them together in the midline. Soft tissue was irrigated. Skin was closed using skin debi. Silver dressing was applied. The patient was awakened extubated and transferred recovery in stable condition. My physician retail assistant store manager was present for the entire case. He was instrumental in assistance in exposure throughout as well as assisting with the anastomosis wound closure and dressing placement. I attest to the content of the Intraoperative Record and any orders documented therein. Any exceptions are noted below.
[2021-01-26] MEDS ORDERED: PROMETHAZINE HCL 6.25 MG in SODIUM CHLORIDE 0.9% 50 ML IV PRN (19:39)
[2021-01-26] MEDS ORDERED: ATROPINE SULFATE 0.1 MG/ML 10ML SYR IV PRN (19:39)
[2021-01-26] MEDS ORDERED: ONDANSETRON INJ 2 MG/ML 2 ML VIAL IV PRN (19:39)
[2021-01-26] MEDS ORDERED: ePHEDrine sulfate 50 MG/ML AMP IV PRN (19:39)
[2021-01-26] MEDS: fentaNYL citrate 100 MCG/2 ML VIAL IV PRN ×4 (19:41→19:57)
--- NOTE | 2021-01-26 20:28 | Anesthesiology Progress Note ---
Date of Service January 26, 2021 Anesthesia Post Procedure Vital Signs Vital Signs: Temp Pulse Pulse Resp BP Pulse Ox 01/26/21 20:15 67 14 129/75 96 01/26/21 20:05 55 L 14 132/76 96 01/26/21 19:55 36.5 C 56 L 14 128/77 97 01/26/21 19:45 63 17 134/75 97 01/26/21 19:35 71 14 160/124 H 100 01/26/21 19:26 36.4 C L 87 14 166/111 H 100 01/26/21 12:50 36.7 C 81 20 160/91 H 97 Pain Intensity Abdomen: Pain Intensity: 6 Transfer of Care Handoff Completed per policy Notes Mental Status: alert / awake / arousable Patient Amnestic to Procedure: Yes Nausea / Vomiting: adequately controlled Pain: adequately controlled Airway Patency, RR, SpO2: stable & adequate BP & HR: stable & adequate Hydration State: stable & adequate Anesthetic Complications: no major complications apparent
[2021-01-26] MEDS ORDERED: MoRPHine SULFATE 4 MG/ML 1 ML CARP\\VIAL ONE (20:30)
[2021-01-26] MEDS: LACTATED RINGER'S 1,000 ML IV SCH (21:45)
[2021-01-26] MEDS: ceFAZolin 2000MG 2,000 MG/15 ML SYR IV SCH (22:59)
[2021-01-26] MEDS: ACETAMINOPHEN 1,000 MG/100 ML VIAL IV SCH (23:46)
[2021-01-27] MEDS: MoRPHine SULFATE 4 MG/ML 1 ML CARP\\VIAL IV PRN ×6 (03:54→20:32)
[2021-01-27] MEDS: LACTATED RINGER'S 1,000 ML IV SCH ×3 (03:54→17:21)
[2021-01-27] MEDS: ceFAZolin 2000MG 2,000 MG/15 ML SYR IV SCH ×2 (06:19→15:44)
--- NOTE | 2021-01-27 08:33 | Surgery Progress Note ---
Date of Service January 27, 2021 Assessment & Plan (1) Colonic mass: Plan: POD 1 doing well d/w her sister Ramila... answered questions keep guevara keep npo for now [facility] surgeons covering for weekend. Admission and Anticipated Discharge Date Admission Date: January 26, 2021 Subjective pt seen. looks good. +pain ( expected)... Physical Exam Physical Exam: alert. looks good considering scope of her surgery. nad. ANGE serous Results & Data ([facility]) Vital Signs (Past 12 Hours) Vital Signs Temp Pulse Pulse Resp BP Pulse Ox 01/27/21 06:12 36.5 C 70 15 129/85 99 01/27/21 03:48 36.6 C 66 16 133/81 97 01/27/21 00:38 36.4 C L 64 15 120/74 96 01/26/21 23:36 36.5 C 63 16 126/79 96 01/26/21 23:08 36.5 C 66 15 123/80 96 01/26/21 22:13 36.4 C L 68 16 118/73 97 01/26/21 21:30 36.6 C 67 16 112/72 92 01/26/21 21:15 59 L 14 114/63 98 01/26/21 21:00 59 L 14 108/65 98 01/26/21 20:45 36.4 C L 66 14 126/74 97 01/26/21 20:30 58 L 14 130/75 94
[2021-01-27] MEDS: ACETAMINOPHEN 1,000 MG/100 ML VIAL IV SCH ×2 (08:52→17:22)
[2021-01-27 09:19] LABS: Hematocrit (blood only) 31.6 % (37-47); Hemoglobin 10.2 g/dL (12.0-16.0); Immature Granulocytes # (auto) 0.03 K/uL (0.00-0.02); Immature Granulocytes % (auto) 0.2 %; Lymphocytes % (auto) 10.4 %; Mean Corpuscular Hemoglobin 26.7 pg (25-34); Mean Corpuscular Hgb Conc 32.3 g/dL (32-36); Mean Corpuscular Volume 82.7 fL (80-100); Mean Platelet Volume 8.9 fL (7.4-10.4); Monocytes # (auto) 0.96 K/uL (0.11-0.59); Monocytes % (auto) 7.7 %; Neutrophils # (auto) 10.24 K/uL (1.4-6.5); Neutrophils % (auto) 81.7 %; Platelet Count 251 K/uL (130-400); RDW Coefficient of Variation 13.5 % (11.5-14.5); RDW Standard Deviation 41.1 fL (36.4-46.3); Red Blood Count 3.82 M/uL (4.2-5.4); White Blood Count 12.53 K/uL (4.8-10.8)
[2021-01-27 10:01] LABS: BUN Creatinine Ratio 7.9 (10-20); Calcium 8.2 mg/dl (8.5-10.1); Creatinine Clr Calc Pharmacy 98.2 ml/min; Est GFR (African American) 113.1 ml/min; Est GFR (Non-African American) 97.5 ml/min; Potassium 3.9 mmol/L (3.5-5.1)
[2021-01-28] MEDS: LACTATED RINGER'S 1,000 ML IV SCH ×4 (00:01→21:52)
[2021-01-28] MEDS: ACETAMINOPHEN 1,000 MG/100 ML VIAL IV SCH ×3 (00:14→18:02)
[2021-01-28] MEDS: MoRPHine SULFATE 4 MG/ML 1 ML CARP\\VIAL IV PRN ×3 (04:30→21:52)
[2021-01-28] MEDS: ONDANSETRON INJ 2 MG/ML 2 ML VIAL IV PRN (08:06)
[2021-01-28 08:19] LABS: Basophils # (auto) 0.02 K/uL (0-0.2); Basophils % (auto) 0.2 %; Eosinophils # (auto) 0.04 K/uL (0-0.5); Eosinophils % (auto) 0.4 %; Hematocrit (blood only) 28.4 % (37-47); Hemoglobin 8.9 g/dL (12.0-16.0); Immature Granulocytes # (auto) 0.01 K/uL (0.00-0.02); Immature Granulocytes % (auto) 0.1 %; Lymphocytes # (auto) 2.11 K/uL (1.2-3.4); Lymphocytes % (auto) 22.3 %; Mean Corpuscular Hemoglobin 26.6 pg (25-34); Mean Corpuscular Hgb Conc 31.3 g/dL (32-36); Monocytes % (auto) 8.4 %; Neutrophils # (auto) 6.49 K/uL (1.4-6.5); Neutrophils % (auto) 68.6 %; Platelet Count 250 K/uL (130-400); RDW Coefficient of Variation 13.9 % (11.5-14.5); RDW Standard Deviation 42.9 fL (36.4-46.3); Red Blood Count 3.34 M/uL (4.2-5.4); White Blood Count 9.47 K/uL (4.8-10.8)
[2021-01-28] MEDS ORDERED: SODIUM CHLORIDE 0.9% 500 ML IV SCH (11:45)
--- NOTE | 2021-01-28 11:49 | Surgery Progress Note ---
Date of Service January 28, 2021 Assessment & Plan (1) History of low anterior resection of rectum: Plan: will con't IVF at 150 500cc blous clears begin pepcid begin po percocet ambulate dry dressing daily Present on Admission?: No Admission and Anticipated Discharge Date Admission Date: January 26, 2021 Subjective having some breakthrough pain some flatus UOP low even though clear in bag some tachycardia during the night but better this AM Review of Systems Constitutional: no fever, no chills and no anorexia Respiratory: no dyspnea Cardiovascular: no chest pain Gastrointestinal: + abdominal pain, + heartburn and + nausea; no vomiting Genitourinary: guevara in place Physical Exam Constitutional: well developed and well nourished; no acute distress Neck: trachea midline Respiratory: normal respiratory effort, lungs clear to auscultation Cardiovascular: RRR, no murmur, no edema Gastrointestinal (Abdomen): Inspection/Auscultation: normal bowel sounds, + abdominal surgical incision (clean and dry) and + abdominal surgical drain present Percussion/Palpation: + abdomen tender and abdomen soft Musculoskeletal: Head/Neck/Chest: normocephalic and head atraumatic Skin: no rashes, warm and dry Psychiatric: Orientation: alert and oriented x 3 Results & Data ([facility]) Vital Signs (Past 12 Hours) Vital Signs Temp Pulse Pulse Resp BP Pulse Ox 01/28/21 07:27 37.1 C 66 18 127/79 97 01/28/21 04:40 84 95 Laboratory Results Hct 28
[2021-01-28] MEDS: FAMOTIDINE 20 MG in SYRINGE 3 ML IV SCH ×2 (12:10→22:03)
[2021-01-28] MEDS: oxyCODONE/ACETAMINOPHEN 5mg/325mg TAB PO PRN ×2 (13:42→18:12)
[2021-01-28] MEDS: MoRPHine SULFATE 2 MG/ML CARP IV PRN (15:08)
[2021-01-29] MEDS: oxyCODONE/ACETAMINOPHEN 5mg/325mg TAB PO PRN ×2 (03:41→16:40)
[2021-01-29] MEDS: LACTATED RINGER'S 1,000 ML IV SCH ×4 (03:48→23:50)
[2021-01-29 07:23] LABS: Basophils # (auto) 0.02 K/uL (0-0.2); Basophils % (auto) 0.2 %; Eosinophils # (auto) 0.23 K/uL (0-0.5); Eosinophils % (auto) 2.9 %; Hematocrit (blood only) 25.4 % (37-47); Hemoglobin 7.9 g/dL (12.0-16.0); Immature Granulocytes # (auto) 0.01 K/uL (0.00-0.02); Immature Granulocytes % (auto) 0.1 %; Lymphocytes # (auto) 1.85 K/uL (1.2-3.4); Mean Corpuscular Hemoglobin 26.8 pg (25-34); Mean Corpuscular Hgb Conc 31.1 g/dL (32-36); Mean Corpuscular Volume 86.1 fL (80-100); Mean Platelet Volume 8.6 fL (7.4-10.4); Monocytes # (auto) 0.69 K/uL (0.11-0.59); Monocytes % (auto) 8.6 %; Neutrophils # (auto) 5.24 K/uL (1.4-6.5); Neutrophils % (auto) 65.2 %; Platelet Count 192 K/uL (130-400); RDW Coefficient of Variation 13.8 % (11.5-14.5); RDW Standard Deviation 43.7 fL (36.4-46.3); Red Blood Count 2.95 M/uL (4.2-5.4); White Blood Count 8.04 K/uL (4.8-10.8)
[2021-01-29 07:46] LABS: RBC Morphology Unremarkable
[2021-01-29] MEDS: FAMOTIDINE 20 MG in SYRINGE 3 ML IV SCH ×2 (08:58→20:08)
[2021-01-29] MEDS: MoRPHine SULFATE 2 MG/ML CARP IV PRN (09:05)
[2021-01-29] MEDS: MoRPHine SULFATE 4 MG/ML 1 ML CARP\\VIAL IV PRN ×4 (09:47→22:34)
--- NOTE | 2021-01-29 12:58 | Surgery Progress Note ---
Date of Service January 29, 2021 Assessment & Plan (1) History of low anterior resection of rectum: Plan: liquids ambulate good pain control Admission and Anticipated Discharge Date Admission Date: January 26, 2021 Subjective looks better passing flatus pain controlled UOP improved, guevara in place Review of Systems Constitutional: no fever and no chills Respiratory: no cough and no dyspnea Cardiovascular: no chest pain Gastrointestinal: + abdominal pain; no nausea and no vomiting Genitourinary: no dysuria Musculoskeletal: no back pain and no neck pain Physical Exam Constitutional: well developed and well nourished Eyes: PERRL ENMT: external ear and nose normal, oropharynx normal Neck: trachea midline Respiratory: normal respiratory effort, lungs clear to auscultation Cardiovascular: RRR, no murmur, no edema Gastrointestinal (Abdomen): Inspection/Auscultation: abdomen normal to inspection and normal bowel sounds; abdomen not distended Percussion/Palpation: + abdomen tender and abdomen soft Musculoskeletal: Head/Neck/Chest: normocephalic and head atraumatic Results & Data ([facility]) Vital Signs (Past 12 Hours) Vital Signs Temp Pulse Pulse Resp BP Pulse Ox 01/29/21 07:30 36.7 C 71 18 135/84 97 01/29/21 03:46 36.6 C 79 16 130/81 95
[2021-01-30] MEDS: ONDANSETRON INJ 2 MG/ML 2 ML VIAL IV PRN ×2 (02:52→08:49)
[2021-01-30] MEDS: MoRPHine SULFATE 4 MG/ML 1 ML CARP\\VIAL IV PRN (05:33)
[2021-01-30] MEDS: LACTATED RINGER'S 1,000 ML IV SCH ×3 (05:40→19:36)
[2021-01-30 06:39] LABS: Basophils # (auto) 0.01 K/uL (0-0.2); Basophils % (auto) 0.1 %; Eosinophils # (auto) 0.16 K/uL (0-0.5); Eosinophils % (auto) 1.6 %; Hematocrit (blood only) 29.7 % (37-47); Hemoglobin 9.2 g/dL (12.0-16.0); Immature Granulocytes # (auto) 0.01 K/uL (0.00-0.02); Immature Granulocytes % (auto) 0.1 %; Lymphocytes # (auto) 0.76 K/uL (1.2-3.4); Lymphocytes % (auto) 7.7 %; Mean Corpuscular Hemoglobin 26.7 pg (25-34); Mean Corpuscular Volume 86.1 fL (80-100); Mean Platelet Volume 9.1 fL (7.4-10.4); Monocytes # (auto) 0.44 K/uL (0.11-0.59); Monocytes % (auto) 4.5 %; Neutrophils # (auto) 8.47 K/uL (1.4-6.5); Platelet Count 253 K/uL (130-400); RDW Coefficient of Variation 13.7 % (11.5-14.5); RDW Standard Deviation 43.3 fL (36.4-46.3); Red Blood Count 3.45 M/uL (4.2-5.4); White Blood Count 9.85 K/uL (4.8-10.8)
[2021-01-30] MEDS: MoRPHine SULFATE 2 MG/ML CARP IV PRN (08:54)
--- NOTE | 2021-01-30 09:06 | Surgery Progress Note ---
Date of Service January 30, 2021 Assessment & Plan (1) Colon cancer: Plan: POD 4 doing as expected. will let her have full liquids and ensure today at her request. vitals/labs look ok awaiting full return of bowel fx note: after I had seen pt but prior to authoring this note, her nurse contacted me stating pt stating her "heart hurts"...trouble communicating even with engineer system administrator.... will obtain cxr and ekg. she did not c/o of this during my rounds. Admission and Anticipated Discharge Date Admission Date: January 26, 2021 Subjective pt seen. c/o pain primarily at ANGE site. states she is passing gas and loose bm's. would like more than clear liquids. Physical Exam Physical Exam: alert. nad abd: soft. incision looks good. no sign of infection. ANGE with serous output. Results & Data ([facility]) Vital Signs (Past 12 Hours) Vital Signs Temp Pulse Pulse Resp BP Pulse Ox 01/30/21 08:48 73 164/91 H 01/30/21 08:02 37.0 C 71 16 155/90 H 98 01/29/21 22:27 36.9 C 81 16 145/80 H 97
--- NOTE | 2021-01-30 09:27 | XRay Report ---
XR chest 1V portable HISTORY: 65 years-old Female chest pain acute atypical chest pain COMPARISON: Chest CT 01/17/2021, chest radiograph 10/13/2020 TECHNIQUE: Portable AP view of the chest FINDINGS: Cardiac silhouette is enlarged, unchanged. No pneumothorax, pleural effusion, airspace consolidation or overt pulmonary edema. Degenerative changes of the spine and left shoulder. Reverse right shoulder total joint arthroplasty. IMPRESSION: Cardiomegaly without acute process. ACT 112: Negative or not required by law. The above report was generated using voice recognition software. It may contain grammatical, syntax o r spelling errors. Electronically signed by: Stephon Capps M.D. 01/30/2021 9:25 AM
[2021-01-30] MEDS: FAMOTIDINE 20 MG in SYRINGE 3 ML IV SCH ×2 (10:00→19:40)
[2021-01-30 10:22] LABS: BUN Creatinine Ratio 4.5 (10-20); Blood Urea Nitrogen 1 mg/dl (7-18); Calcium 7.8 mg/dl (8.5-10.1); Carbon Dioxide 29 mmol/L (21-32); Chloride 104 mmol/L (98-107); Est GFR (African American) 139.7 ml/min; Est GFR (Non-African American) 120.6 ml/min; Glucose 95 mg/dl (70-99); Potassium 3.6 mmol/L (3.5-5.1); Sodium 139 mmol/L (136-145)
[2021-01-30 10:27] LABS: Troponin I < 0.015 ng/ml (0-0.045)
--- NOTE | 2021-01-30 15:03 | Consultation ---
Date of Consultation January 30, 2021 Assessment & Plan (1) Chest pain: momentary this morning, resolved, might have been more like nausea, burning from vomiting? there are subtle EKG changes, occurred when she had the pain but also when she did not have any pain several hours later troponin neg x 2 echo with normal EF, no regional wall motion changes doubt that the pain was cardiac will start on aspirin 81mg and add Lopressor 25mg BID for BP control check troponin in AM (2) Hypertension: BP elevated currently holding home BP medications will start on Lopressor 25mg BID (3) History of low anterior resection of rectum: management per Dr. Bueno History of Present Illness Requesting Physician: Dr. Bueno Reason for Consultation: Chest pain Attending Physician: Jose Bueno, DO History of Present Illness 65 yo female admitted after undergoing lower anterior resection for rectal mass, under care of Dr. Bueno, general surgery. She was progressing fairly well with her diet and abdominal pain was controlled. This morning she told the RN that her "heart hurt." Dr. Bueno ordered CXR that showed some cardiomegaly but nothing else. EKG showed some mild TW inversions in inferior leads (prior EKG with non specific ST changes) and TW inversions in anterior leads. Troponin was negative. This afternoon the patient only complains of nausea, says she has vomited twice today. No flatus or BM, she has ANGE drain in place. She now says she is not sure she had chest pain but more it was nausea sensation. Ordered echocardiogram that is pending. Repeat troponin will be at 3pm and will now repeat EKG as she denies chest pain/pressure, dyspnea, palpitations. She says she has no cardiac history. Allergies Allergy/AdvReac Type Severity Reaction Status Date / Time alendronate sodium AdvReac Mild GI Verified 01/26/21 12:21 [From Fosamax] Upset/Myalgia Home Medications Medication Instructions Recorded Confirmed Type irbesartan 300 mg tablet 300 mg PO QAM 01/04/21 01/26/21 History polyethylene glycol 3350 17 17 g PO DAILY #850 g 01/10/21 01/26/21 Rx gram/dose oral powder (Miralax) ibuprofen 200 mg tablet (Advil) 200 mg PO DAILY PRN 01/23/21 01/26/21 History Patient History Medical History (Updated 01/30/21 @ 22:10 by Kirill Poon DO) Anemia Cholelithiasis Degenerative disc disease lumbar History of COVID-19 09/2020; fatigue, poor appetite, generalized weakness, body aches; resolved Hypertension Obesity OP (osteoporosis) Rectal mass (~01/10/21) rectal stent placed during colonoscopy Surgical History History of colonoscopy History of left hip replacement History of low anterior resection of rectum History of total shoulder replacement Right reverse TSA: 05/26/18: Grade view 1, MAC#3, ETT 7.5 at [facility] Family History Father Parkinsonism Stroke Mother Anemia Colorectal cancer Brother Bicuspid aortic valve Other No family history of adverse response to anesthesia Social History Smoking Status: Never smoker Second Hand Exposure: No; Do You Dip or Chew Tobacco: No; Tobacco Cessation Education Requested by Patient: No Hx Alcohol Use: Yes Alcohol type: wine Hx Substance Use: No Preferred Language: Serbian Communication Ability: Effective Communication Tools: IPad Business Rules Analyst Required: Yes Beliefs That Will Affect Care: None marital status: Current Living Situation: Spouse Current Living Situation Comment: 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 How many Children do You have: 3 Other Information That Helps Us Care for You: No Assistive Devices: Walker Review of Systems Review of Systems: All systems reviewed & are unremarkable except as noted in HPI & below Constitutional: no fever, no chills, no sweats, no fatigue and no weakness Respiratory: no cough and no dyspnea Cardiovascular: + chest pain (this morning, resolved); no syncope and no edema Gastrointestinal: + abdominal pain, + nausea, + vomiting and + constipation; no diarrhea/loose stools Physical Exam Constitutional: well developed, well nourished and comfortable; no acute distress Eyes: PERRL, conjunctivae normal, anicteric sclerae ENMT: external ear and nose normal, oropharynx normal Neck: trachea midline, no thyromegaly Respiratory: normal respiratory effort, lungs clear to auscultation Cardiovascular: RRR, no murmur, no edema Gastrointestinal (Abdomen): Inspection/Auscultation: + abdominal surgical incision, + abdominal surgical drain present and + hypoactive bowel sounds; abdomen not distended Musculoskeletal: no cyanosis or clubbing, extremities motor strength 5/5 Skin: no rashes, warm and dry Neurologic: patellar DTR's 2+ bilat, sensation intact and PERRL, EOMI, accommodation nl, no face palsy, no dysarthria Psychiatric: A+Ox3, euthymic affect Results & Data ([place]) Vital Signs (Past 12 Hours) Vital Signs Temp Pulse Pulse Resp BP Pulse Ox 01/30/21 08:48 73 164/91 H 01/30/21 08:02 37.0 C 71 16 155/90 H 98 Laboratory Results Laboratory Results - last 24 hr 01/30/21 01/30/21 01/30/21 05:33 05:38 15:10 WBC 9.85 RBC 3.45 L Hgb 9.2 L Hct 29.7 L MCV 86.1 MCH 26.7 MCHC 31.0 L RDW Std Deviation 43.3 RDW Coeff of Deidra 13.7 Plt Count 253 MPV 9.1 Immature Gran % (Auto) 0.1 Neut % (Auto) 86.0 Lymph % (Auto) 7.7 Gal[place] % (Auto) 4.5 Eos % (Auto) 1.6 Baso % (Auto) 0.1 Neut # (Auto) 8.47 H Lymph # (Auto) 0.76 L Gal[place] # (Auto) 0.44 Eos # (Auto) 0.16 Baso # (Auto) 0.01 Immature Gran # (Auto) 0.01 Sodium 139 Potassium 3.6 Chloride 104 Carbon Dioxide 29 Anion Gap 5.0 BUN 1 L Creatinine 0.31 L Est Cr Clr Drug Dosing 187.0 Est GFR ( Amer) 139.7 Est GFR (Non-Af Amer) 120.6 BUN/Creatinine Ratio 4.5 L Glucose 95 Calcium 7.8 L Troponin I < 0.015 < 0.015 Medications Administered Current Inpatient Medications Aspirin (Aspirin 81 Mg Ectab) 81 mg PO QAM [facility] Stop: 03/01/21 15:29 Last Admin: 01/30/21 16:17 Dose: 81 mg Documented by: Lactated Ringer's (Lr) 1,000 mls @ 150 mls/hr IV .Q6H40M [facility] Stop: 02/25/21 21:31 Last Admin: 01/30/21 19:36 Dose: 150 mls/hr Documented by: Famotidine 20 mg/ Syringe 5 mls @ 2.5 mls/min IV BID [facility] Stop: 02/27/21 11:59 Last Admin: 01/30/21 19:40 Dose: 2.5 mls/min Documented by: Metoprolol Tartrate (Metoprolol Tartrate 25 Mg Tab) 25 mg PO BID [facility] Stop: 03/02/21 08:59 Morphine Sulfate (Morphine Sulfate 2 Mg/Ml Carp) 2 mg IV Q1H PRN PRN Reason: Pain (1,2,3,4,5) & Pre PT Stop: 02/09/21 21:31 Last Admin: 01/30/21 08:54 Dose: 2 mg Documented by: Morphine Sulfate (Morphine Sulfate 4 Mg/Ml 1 Ml Carp\\Vial) 4 mg IV Q1H PRN PRN Reason: Pain (6,7,8,9,10) Stop: 02/09/21 21:31 Last Admin: 01/30/21 05:33 Dose: 4 mg Documented by: Ondansetron HCl (Ondansetron Inj 2 Mg/Ml 2 Ml Vial) 4 mg IV Q4H PRN PRN Reason: Nausea And Vomiting Stop: 02/25/21 21:31 Last Admin: 01/30/21 08:49 Dose: 4 mg Documented by: Oxycodone/Acetaminophen (Oxycodone/Acetaminophen 5mg/325mg Tab) 1 tab PO Q4H PRN PRN Reason: MODERATE Pain (4,5,6) & Pre PT Stop: 02/11/21 11:40 Last Admin: 01/29/21 16:40 Dose: 1 tab Documented by: PG Care Time/CCT Total # of Minutes Spent Total Time Spent with Patient: Total time spent is greater than 50% in coordination of care (as documented) at patient's floor/unit and/or counseling patient: Coding Level of Care Code 47534 Inpt Consult Level 2 Diagnoses History of low anterior resection of rectum Z90.49 Chest pain R07.9 Hypertension I10
[2021-01-30] MEDS: ASPIRIN 81 MG ECTAB PO SCH (16:17)
--- NOTE | 2021-01-30 20:16 | XCELERA ---
[id number]
[2021-01-30] MEDS ORDERED: METOPROLOL TARTRATE 25 MG TAB PO SCH (21:00)
[2021-01-30] MEDS: oxyCODONE/ACETAMINOPHEN 5mg/325mg TAB PO PRN (22:22)
[2021-01-31] MEDS: LACTATED RINGER'S 1,000 ML IV SCH ×2 (01:49→09:01)
[2021-01-31] MEDS: oxyCODONE/ACETAMINOPHEN 5mg/325mg TAB PO PRN ×3 (09:01→19:51)
[2021-01-31] MEDS: ASPIRIN 81 MG ECTAB PO SCH (09:03)
[2021-01-31] MEDS: METOPROLOL TARTRATE 25 MG TAB PO SCH ×2 (09:03→22:00)
[2021-01-31] MEDS: FAMOTIDINE 20 MG in SYRINGE 3 ML IV SCH ×2 (09:06→22:00)
--- NOTE | 2021-01-31 09:51 | Surgery Progress Note ---
Date of Service January 31, 2021 Assessment & Plan (1) Colon cancer: Plan: Continues to slowly improve as anticipated. We will leave her on full liquid diet for today and possibly advance tomorrow. We will remove her Vaughn catheter today as well as her ANGE drain since she had bowel function. Chest pain issue appears to have resolved. No major findings yesterday by medicine and I greatly appreciate their help. Hopefully we can advance her diet tomorrow with possible discharge on . Admission and Anticipated Discharge Date Admission Date: January 26, 2021 Subjective Patient seen. Feeling better than yesterday. Denies chest pain. Still having some pain at her ANGE site. She did have some liquid bowel movement this morning. She tolerated treatment wheat without issue earlier today. No nausea. Physical Exam Physical Exam: Alert and oriented no acute distress Abdomen is soft with expected tenderness. ANGE with serous fluid. Incision with no sign of infection. Results & Data ([facility]) Vital Signs (Past 12 Hours) Vital Signs Temp Pulse Resp BP Pulse Ox 01/31/21 07:27 36.8 C 75 16 166/98 H 90 01/30/21 22:49 37.3 C 78 18 142/84 H 91 PG Care Time/CCT Total # of Minutes Spent Total Time Spent with Patient: Total time spent is greater than 50% in coordination of care (as documented) at patient's floor/unit and/or counseling patient: Coding Level of Care Code None Diagnoses Colon cancer C18.9
--- NOTE | 2021-01-31 09:54 | Consultation Report ---
MEDICAL ONCOLOGY CONSULTATION DATE OF SERVICE: 01/31/2021 REASON FOR CONSULTATION: Adenocarcinoma of the sigmoid colon. HISTORY OF PRESENT ILLNESS: Jenna is a pleasant 65-year-old [place] female who was admitted to [facility] on 01/26/2021 status post sigmoidectomy/low anterior resection. Unfortunately, the patient speaks limited Slovak and therefore, information is scant and relying predominantly on medical records to provide the clinical summary. This patient apparently had initial colonoscopy performed by Dr. Brown prior to admission revealing a near obstructive lesion approximately 12 cm from the dentate line, which in essence would place the lesion at the sigmoid-rectal junction. Apparently, a stent was subsequently placed. Biopsy confirms adenocarcinoma. The patient was readmitted to [facility], underwent an open low anterior colon resection performed by Dr. Bueno on 01/26/2021. Surgical pathology is pending at the time of dictation, thus cannot be staged appropriately. Again, I explained to this very pleasant lady, at some point we will need to reconvene with her once the pathology is available to properly stage and make formal recommendations. At bedside this morning, she had no overt complaints. She appeared to understand my Slovak and the need to reconvene at some point to discuss further. CT of the abdomen and pelvis performed on 01/17/2021 reveals interval placement of a rectosigmoid stent, persistent area of bowel wall thickening and lateral shouldering located at the proximal sigmoid colon. Cholelithiasis is noted. There does not appear to be any obvious metastatic disease involving her liver. CT of the chest revealed a probable splenomegaly and a left-sided breast lesion 18 mm in diameter. Primary service is requesting a consultation and disposition for this very pleasant 65-year-old [place] female with a newly diagnosed adenocarcinoma of the sigmoid colon. PAST MEDICAL HISTORY: Significant for colorectal cancer, history of COVID-19, hypertension, degenerative disk disease, cholelithiasis. PAST SURGICAL HISTORY: Includes a left hip arthroplasty, right total shoulder replacement. MEDICATIONS: Prior to admission include irbesartan 300 mg p.o. daily. ALLERGIES: FOSAMAX. FAMILY HISTORY: Father suffered from parkinsonism and cerebrovascular disease. Mother suffered from anemia. SOCIAL HISTORY: The patient resides with her . She is a social wine consumer. Negative for cigarettes or illicit substances. REVIEW OF SYSTEMS: Limited because of the patient's language barrier. PHYSICAL EXAMINATION: GENERAL: Very pleasant 65-year-old [place] female, awake, alert, appropriate, in no acute distress. VITAL SIGNS: Temperature 37.3, pulse 78, respiratory rate 18, blood pressure 142/84. SKIN: Warm, dry, noncyanotic without petechia, rash or ecchymosis. HEENT: Head atraumatic, normocephalic. Eyes: PERRLA. EOMI. Sclerae are nonicteric. No conjunctival injection. Nares patent without rhinorrhea or discharge. Throat clear. Tongue midline. Mucous membranes are moist. NECK: Supple without JVD or thyromegaly. HEART: Regular rate and rhythm. No clicks, rubs, murmurs or gallops. LUNGS: Clear to auscultation bilaterally. ABDOMEN: Surgical wound is sterilely dressed with a single drain exposed. Bowel sounds are hypoactive. EXTREMITIES: No clubbing, cyanosis or edema. MUSCULOSKELETAL: Strength and pulses are equal in all 4 extremities. NEUROLOGIC: She is awake, alert and oriented x3. Cranial nerve testing not done. LABORATORIES: WBC count 9850, hemoglobin 9.2, platelet count 253,000. Sodium 139, potassium 3.6, chloride 104, carbon dioxide 29, creatinine 0.31, BUN 1. IMPRESSION: 1. Stage indeterminate adenocarcinoma of the sigmoid colon. 2. Atypical chest pain. PLAN: In summary, it was my pleasure to meet with Jenna at bedside this morning. Again, unfortunately, her Slovak is limited and unable to extract much additional information. From what was gathered from medical records, Jenna was diagnosed with a near obstructing colorectal mass at the sigmoid- rectal junction. A stent was placed. She was subsequently readmitted to [facility] and underwent open low anterior resection performed by Dr. Bueno. Postoperative pathology is not available at the time of dictation; therefore, cannot make definitive recommendations at this time. In general, node positivity separates stage II from stage III disease. Generally speaking, stage II disease does not usually require chemotherapy unless high risk features are present. That said, confirmed node positive disease, stage III, would proceed with recommendation for adjuvant chemotherapy moving forward. That said, the patient seemed to understand the need for outpatient followup, specifically to review pathology and surveillance or perhaps adjuvant chemotherapy moving forward. I have nothing further to add at this time until more information available. Radiographically, it would appear the patient is not suffering from metastatic disease. Thank you for allowing me to participate in her care. If you have any questions or concerns, please feel free to contact me at any time. Job ID: [id number] EDWARDO
--- NOTE | 2021-01-31 10:17 | Hospitalist Progress Note ---
Date of Service January 31, 2021 Assessment & Plan (1) Chest pain: Plan: momentary morning of 01/30, resolved, might have been more like nausea, burning from vomiting? there are subtle EKG changes, occurred when she had the pain but also when she did not have any pain several hours later troponin neg x 2 yesterday and then negative this morning, so no rise in 24 hours echo with normal EF, no regional wall motion changes doubt that the pain was cardiac will start on aspirin 81mg and add Lopressor 25mg BID for BP control recommend he continue this on discharge, will add this to discharge med rec (2) Hypertension: Plan: BP elevated will start on Lopressor 25mg BID will add back Irbesartan but at 150mg daily since we started the Lopressor (3) History of low anterior resection of rectum: Plan: management per Dr. Bueno will follow up with Dr. Gerardo once pathology and staging done Plan: MEDICINE WILL SIGN OFF AT THIS TIME, please call Dr Poon if there are any new issues will add aspirin, metoprolol to med discharge and will change Irbesartan to 150mg daily Admission and Anticipated Discharge Date Admission Date: January 26, 2021 Subjective patient feeling better, no further chest pain, no longer feeling nauseated, no vomiting third troponin this morning negative BP is elevated, at home she takes Irbesartan which was being held Review of Systems Review of Systems: All systems reviewed & are unremarkable except as noted in Subjective Respiratory: no cough and no dyspnea Cardiovascular: no chest pain Gastrointestinal: + abdominal pain; no nausea, no vomiting and no diarrhea/loose stools Physical Exam Constitutional: well developed, well nourished and comfortable; no acute distress Eyes: PERRL, conjunctivae normal, anicteric sclerae ENMT: external ear and nose normal, oropharynx normal Neck: trachea midline, no thyromegaly Respiratory: normal respiratory effort, lungs clear to auscultation Cardiovascular: RRR, no murmur, no edema Gastrointestinal (Abdomen): Inspection/Auscultation: + abdominal surgical incision, + abdominal surgical drain present and + hypoactive bowel sounds; abdomen not distended Musculoskeletal: no cyanosis or clubbing, extremities motor strength 5/5 Skin: no rashes, warm and dry Neurologic: patellar DTR's 2+ bilat, sensation intact and PERRL, EOMI, accommodation nl, no face palsy, no dysarthria Psychiatric: A+Ox3, euthymic affect Results & Data Results & Data ([facility]) Vital Signs (Past 12 Hours) Vital Signs Temp Pulse Resp BP Pulse Ox 01/31/21 07:27 36.8 C 75 16 166/98 H 90 01/30/21 22:49 37.3 C 78 18 142/84 H 91 Laboratory Results Laboratory Results - last 24 hr 01/30/21 01/30/21 01/31/21 05:38 15:10 07:36 Sodium 139 Potassium 3.6 Chloride 104 Carbon Dioxide 29 Anion Gap 5.0 BUN 1 L Creatinine 0.31 L Est Cr Clr Drug Dosing 187.0 Est GFR ( Amer) 139.7 Est GFR (Non-Af Amer) 120.6 BUN/Creatinine Ratio 4.5 L Glucose 95 Calcium 7.8 L Troponin I < 0.015 < 0.015 < 0.015 Medications Administered Current Inpatient Medications Aspirin (Aspirin 81 Mg Ectab) 81 mg PO QAM [facility] Stop: 03/01/21 15:29 Last Admin: 01/31/21 09:03 Dose: 81 mg Documented by: Lactated Ringer's (Lr) 1,000 mls @ 50 mls/hr IV .Q20H [facility] Stop: 02/25/21 21:31 Last Infusion: 01/31/21 10:08 Dose: 50 mls/hr Documented by: Famotidine 20 mg/ Syringe 5 mls @ 2.5 mls/min IV BID [facility] Stop: 02/27/21 11:59 Last Admin: 01/31/21 09:06 Dose: 2.5 mls/min Documented by: Irbesartan (Irbesartan 150 Mg Tab) 150 mg PO QAM [facility] Stop: 03/02/21 10:14 Metoprolol Tartrate (Metoprolol Tartrate 25 Mg Tab) 25 mg PO BID [facility] Stop: 03/02/21 08:59 Last Admin: 01/31/21 09:03 Dose: 25 mg Documented by: Morphine Sulfate (Morphine Sulfate 2 Mg/Ml Carp) 2 mg IV Q1H PRN PRN Reason: Pain (1,2,3,4,5) & Pre PT Stop: 02/09/21 21:31 Last Admin: 01/30/21 08:54 Dose: 2 mg Documented by: Morphine Sulfate (Morphine Sulfate 4 Mg/Ml 1 Ml Carp\Vial) 4 mg IV Q1H PRN PRN Reason: Pain (6,7,8,9,10) Stop: 02/09/21 21:31 Last Admin: 01/30/21 05:33 Dose: 4 mg Documented by: Ondansetron HCl (Ondansetron Inj 2 Mg/Ml 2 Ml Vial) 4 mg IV Q4H PRN PRN Reason: Nausea And Vomiting Stop: 02/25/21 21:31 Last Admin: 01/30/21 08:49 Dose: 4 mg Documented by: Oxycodone/Acetaminophen (Oxycodone/Acetaminophen 5mg/325mg Tab) 1 tab PO Q4H PRN PRN Reason: MODERATE Pain (4,5,6) & Pre PT Stop: 02/11/21 11:40 Last Admin: 01/31/21 09:01 Dose: 1 tab Documented by: PG Care Time/CCT Total # of Minutes Spent Total Time Spent with Patient: Total time spent is greater than 50% in coordination of care (as documented) at patient's floor/unit and/or counseling patient: Coding Level of Care Code 42655 Subseq Hosp Care Lvl 2 Diagnoses Chest pain R07.9 Hypertension I10 History of low anterior resection of rectum Z90.49
[2021-01-31] MEDS: IRBESARTAN 150 MG TAB PO SCH (11:36)
[2021-02-01] MEDS: LACTATED RINGER'S 1,000 ML IV SCH (00:17)
[2021-02-01] MEDS: oxyCODONE/ACETAMINOPHEN 5mg/325mg TAB PO PRN ×4 (00:25→20:20)
[2021-02-01] MEDS: IRBESARTAN 150 MG TAB PO SCH (08:02)
[2021-02-01] MEDS: ASPIRIN 81 MG ECTAB PO SCH (08:02)
[2021-02-01] MEDS: METOPROLOL TARTRATE 25 MG TAB PO SCH ×2 (08:02→21:20)
[2021-02-01] MEDS: FAMOTIDINE 20 MG in SYRINGE 3 ML IV SCH (08:08)
--- NOTE | 2021-02-01 09:00 | Surgery Progress Note ---
Date of Service February 01, 2021 Assessment & Plan (1) Colon cancer: Plan: POD [address] Bueno advance to low fiber diet d/c IVF as above. pt seen. looks good. had several more bm's since yesterday. rudi full liquids will advance to low residue and request design consultant to see her to discuss home diet d/c planning/possibly tomorrow. Admission and Anticipated Discharge Date Admission Date: January 26, 2021 Subjective No c/o, wants to try home foods Physical Exam Gastrointestinal (Abdomen): Inspection/Auscultation: + abdominal surgical incision (clean, dry); abdomen not distended Percussion/Palpation: abdomen soft Results & Data ([facility]) Vital Signs (Past 12 Hours) Vital Signs Temp Pulse Resp BP Pulse Ox 02/01/21 07:00 36.9 C 71 20 158/86 H 94 01/31/21 23:48 36.6 C 65 18 156/85 H 92 PG Care Time/CCT Total # of Minutes Spent Total Time Spent with Patient: Total time spent is greater than 50% in coordination of care (as documented) at patient's floor/unit and/or counseling patient: Coding Level of Care Code None Diagnoses Colon cancer C18.9
[2021-02-01] MEDS: PANTOprazole 40 MG TAB PO SCH (09:57)
--- NOTE | 2021-02-02 05:22 | Electrocardiogram Report ---
Test Reason : Blood Pressure : / mmHG Vent. Rate : 079 BPM Atrial Rate : 079 BPM P-R Int : 138 ms QRS Dur : 082 ms QT Int : 394 ms P-R-T Axes : 018 009 -01 degrees QTc Int : 451 ms Normal sinus rhythm Abnormal ECG When compared with ECG of 17-JAN-2021 14:37, T wave inversion now evident in Anterior leads Confirmed by Pilo Simpson ([id number]) on 02/02/2021 5:22:32 AM Referred By: Jose Bueno Confirmed By:Pilo Simpson
--- NOTE | 2021-02-02 05:39 | Electrocardiogram Report ---
Test Reason : Blood Pressure : / mmHG Vent. Rate : 085 BPM Atrial Rate : 085 BPM P-R Int : 164 ms QRS Dur : 076 ms QT Int : 372 ms P-R-T Axes : 035 001 012 degrees QTc Int : 442 ms Normal sinus rhythm Abnormal ECG When compared with ECG of 30-JAN-2021 09:06, No significant change was found Confirmed by Pilo Simpson ([id number] on 02/02/2021 5:39:15 AM Referred By: Jose Bueno Confirmed By:Pilo Simpson
--- NOTE | 2021-02-02 08:35 | Surgery Progress Note ---
Date of Service February 02, 2021 Assessment & Plan (1) Colon cancer: Plan: POD 7 LAR ok for d/c on low fiber diet and home health as above. ok for d/c. path still pending. f/u 1 week. Admission and Anticipated Discharge Date Admission Date: January 26, 2021 Subjective tolerating diet, Percocet for pain, loose BMs Physical Exam Gastrointestinal (Abdomen): Inspection/Auscultation: abdomen not distended Percussion/Palpation: abdomen soft Results & Data ([facility]) Vital Signs (Past 12 Hours) Vital Signs Temp Pulse Resp BP Pulse Ox 02/02/21 02:00 36.8 C 65 16 154/88 H 93 PG Care Time/CCT Total # of Minutes Spent Total Time Spent with Patient: Total time spent is greater than 50% in coordination of care (as documented) at patient's floor/unit and/or counseling patient: Coding Level of Care Code None Diagnoses Colon cancer C18.9
[2021-02-02] MEDS: METOPROLOL TARTRATE 25 MG TAB PO SCH (09:23)
[2021-02-02] MEDS: ASPIRIN 81 MG ECTAB PO SCH (09:51)
[2021-02-02] MEDS: PANTOprazole 40 MG TAB PO SCH (09:52)
[2021-02-02] MEDS: IRBESARTAN 150 MG TAB PO SCH (09:52)
--- NOTE | 2021-02-03 09:30 | Discharge Summary ---
Date of Service February 03, 2021 Principal Diagnosis Colon cancer Discharge Exam Constitutional WD/WN, vitals as above Gastrointestinal (Abdomen) Inspection/Auscultation: + abdominal surgical incision (no erythema); abdomen not distended Percussion/Palpation: abdomen soft Discharge Data Allergies Allergy/AdvReac Type Severity Reaction Status Date / Time alendronate sodium AdvReac Mild GI Verified 01/26/21 12:21 [From Fosamax] Upset/Myalgia Consultations 01/30/21 09:29 Consult Hospitalist Stat Procedures Performed Operation Date: 01/26/21 14:35 Actual Procedures p Open Low Anterior Colon Resection - Jose Bueno, Ordered Studies 01/26/21 15:13 US - OR guided needle placemen Routine Hospital Course (1) Colon cancer: 65 y/o female with colorectal cancer was taken to the operating room for low anterior resection. She was transferred to the surgical unit for postoperative care. Resection was lower than expected, guevara was left in place for several days and diet was slowly advanced beginning with clears on POD3. She c/o of some chest pain on POD4, the hospitalist was consulted to assist in evaluating that. Cardiac source was ruled out, although she was started on ASA and beta-loida. She began having bowel movements on day 5, ANGE drain was removed also as this seemed to be causing her some discomfort. She was advanced to regular diet on day 6 though still felt bloated. By day 7 she was better tolerating diet and oral analgesics and was stable for discharge home. Pathology results were pending at the time of discharge. Total Time Total Time Spent Total Time Spent (In Minutes): 20 Discharge Plan Discharge Items Patient Disposition: Home - Home Health Services Reason For Visit: COLON CANCER Discharge Diagnosis: low anterior colon resection Activity: Per Instructions section Lifting: No more than 10 pounds Bathing Comment: may shower; no soaking in tubs/pools Exercise/Sports: Wait until after follow-up appointment Driving/Machine Use: no driving while taking narcotics for pain Non-emergency contact: Surgeon Call non-emergency contact if: you have any medication questions, your symptoms worsen, your pain is not controlled, your pain is worsening, your pain is concerning for you, you have a fever, your temperature is above 101.5, your wound has increased redness, your wound has increased drainage and your wound pain has increased Follow-up/Referrals: Venkat Cedeno III, MD [Primary Care Provider] - 02/07/21 2:00 pm (APPT WITH TOÑITO ROBIN) Jose Bueno DO [Surgeon] - 02/15/21 10:45 am (Please call to schedule follow up in clinic within 1-2 weeks) Diet: Low Fiber Addtl Attending Provider Instructions: Please continue on a low fiber diet until your follow up appointment You have surgical debi in place that will be removed at your follow up appointment You may change the dressing where your surgical drain was removed daily with dry 4x4 gauze and medipore tape until it is healed and no longer draining. Pending Studies at Discharge: Yes Studies:: surgical pathology Stand-Alone Forms: [facility], Opioid Pain Management, Smoking Cessation Medications and DC Order Prescriptions: New irbesartan 150 mg Tablet 150 mg PO QAM 30 Days Qty: 30 RF: 1 metoprolol tartrate 25 mg Tablet 25 mg PO BID 30 Days Qty: 60 RF: 1 aspirin 81 mg Tablet,Delayed Release (Dr/Ec) 81 mg PO QAM Qty: 30 RF: 0 oxycodone-acetaminophen [Percocet] 5-325 mg tablet 1 - 2 tab PO .q4-6h PRN (Reason: pain, for initial therapy, max 6 tabs per day) Qty: 15 RF: 0 ondansetron HCl [Zofran] 4 mg tablet 4 mg PO Q6H PRN (Reason: nausea and vomiting) Qty: 10 RF: 0 Discontinued irbesartan 300 mg Tablet 300 mg PO QAM RF: 0 polyethylene glycol 3350 [Miralax] 17 gram/dose powder 17 g PO DAILY Qty: 850 RF: 1 ibuprofen [Advil] 200 mg Tablet 200 mg PO DAILY PRN (Reason: Pain) RF: 0 Discharge Orders: Discharge Order (Routine); Ordered 02/02/21 Ordered By: Jose Billings/Other Patient Handouts: Low-Fiber Diet Admission Data Admit Date/Time: 01/26/21 19:22 Attending Provider: Jose Bueno Admit Provider: Jose Sommer Jr Primary Care Provider: Venkat Cedeno III Other Providers: [facility],Home Healthcare ; Shankar Arellano Lauren ; Lico Willard ; Pavan Nicole ; Cleve Barba ; Costa Meadows ; Kirill Poon ; Kassandra Thomson ; Kary Espinal ; Rojas Green ; Heidi Colunga ; Jimena Nelson ; Will Jackson ; Juni Yañez ; Bruno Vogt ; Nena Velez ; Lance Garcia ; Keeley Betancourt ; Gianluca Treviño ; Lico Preston ; Joe Polanco ; Marce Garcia ; Dewayne Krueger ; Heidi Burgos ; Jong Fitzgerald ; Artie Lovelace Other Interventions: Discharge Summary Assessment (RN) Last Done: 02/02/21 09:53 Coding Level of Care Code D/C DAY MANAGEMENT <30 MINS Diagnoses Colon cancer C18.9
== END 2021-02-02 12:11 | disposition home health service (06) | DRG 330 ==
LOC: ASU 11:47 → 3W 19:22
DX: C18.7 Malignant neoplasm of sigmoid colon; D62 Acute posthemorrhagic anemia; I10 Essential (primary) hypertension; R07.9 Chest pain, unspecified; Z86.16 Personal history of COVID-19

== ENCOUNTER 2021-10-03 10:59 | Inpatient (IN) ==
[2021-10-03] MEDS ORDERED: ONDANSETRON INJ 2 MG/ML 2 ML VIAL IV STA (11:33)
[2021-10-03] MEDS ORDERED: MoRPHine SULFATE 4 MG/ML 1 ML CARP\\VIAL IV STA (11:33)
[2021-10-03] MEDS ORDERED: SODIUM CHLORIDE 0.9% 1000ML 500 ML IV ONE (11:34)
--- NOTE | 2021-10-03 11:35 | Emergency Department Note ---
Impression & Plan Abdominal pain, Colonic mass ADMIT ED Provider Note HPI: The patient is a 66-year-old female who speaks primarily Kittitian, history is obtained with the assistance of installer technician iPad, has history of colon cancer, status post lower anterior resection in December [address] Bueno, recently finished chemotherapy, presents the emergency department with a chief complaint of 3 days of left-sided abdominal pain as well as constipation and "thin stools". Patient states that she has had some vomiting over the past 2 days as well. On arrival here to the ED the patient is hemodynamically stable, she does not display any active vomiting and she is in no acute distress on my initial assessment. ROS: -GI: Abdominal pain, nausea and vomiting, constipation *10 point review systems was conducted and is otherwise negative unless stated above *Outpatient medications and allergy history reviewed PE: General: Alert, NAD HEENT: Normocephalic, atraumatic Eyes: Extraocular eye movement is intact, no scleral erythema Pulmonary: Clear to auscultation bilaterally, no wheezing Cardio: Regular rate and rhythm GI: Abdomen is soft, moderate tenderness to palpation to left side of the abdomen without guarding or rigidity : No suprapubic tenderness MSK: No evidence of trauma or malformation of the extremities, no edema Skin: No evidence of rash Neuro: Alert, no focal deficits Psychiatric: Cooperative supervisor elementary education: - An order was placed for continuous cardiac monitoring - Patient was noted to be in sinus rhythm with rate of 80 Medical Decision Making: Patient appears well here in the ED, shortly after arrival IV was established, lab work obtained, lab work is generally unremarkable, patient was given IV fluids as well as pain medication and antiemetics, CT imaging of the abdomen pelvis was concerning for an obstruction distally near the area of the rectosigmoid anastomosis. There is a large stool burden noted as well. Also noted to be evidence of what appears to be colitis. No evidence of free air perforation. I discussed the above findings with on-call general surgery midlevel provider, Tierra Niño, he did evaluate the patient at the bedside. She is working with Dr. Bueno today who is familiar with the patient. Plan will be to admit to the medicine service for further work-up and management of colonic mass with likely GI consultation and surgery consultation as well for further coordination of care. Patient has not displayed any active vomiting here in the ED. [facility] hospitalist service was consulted for admission, patient was agreeable for admission following my discussion with her about the above findings utilizing the installer technician iPad service. Patient was admitted in stable condition. Diagnosis: 1. Nausea and vomiting, acute abdominal pain 2. Colonic stricture with possible large bowel obstruction 3. Constipation Disposition: Admission Basil TamezDO Emergency Medicine Past Med/Surg History Medical History Anemia Cholelithiasis Colon cancer Degenerative disc disease lumbar History of COVID-19 Dx 09/2020 > symptoms at time of: fatigue, poor appetite, generalized weakness, body aches > resolved Hypertension Obesity OP (osteoporosis) Rectal mass Rectal stent placed during colonoscopy Surgical History History of colon resection Open lower anterior colon resection (01/26/2021): Grade view 1, Jackson #2, ETT 7.5 at [facility] ( + TAP block) History of colonoscopy History of left hip replacement History of low anterior resection of rectum History of total shoulder replacement Right reverse TSA: 05/26/18: Grade view 1, MAC#3, ETT 7.5 at [facility] Port-A-Cath in place (03/23/21) Insertion of Access Port with Fluoroscopy Dr. 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 How many Children do You have: 3 Feels Safe at Home: Yes Assistive Devices: Glasses Allergies Allergies Allergy/AdvReac Type Severity Reaction Status Date / Time alendronate sodium AdvReac Mild GI Verified 06/14/21 11:24 [From Fosamax] Upset/Myalgia Home Meds Home Medications Medication Instructions Recorded Confirmed cholecalciferol (vitamin D3) 50 50 mcg PO QAM 06/16/21 10/03/21 mcg (2,000 unit) tablet Previous Rx's Medication Instructions Recorded aspirin 81 mg tablet,delayed 81 mg PO QAM #30 tab 01/31/21 release irbesartan 150 mg tablet 150 mg PO QAM 30 Days #30 tab 06/14/21 Results & Data (ED) Vital Signs Vital Signs - 24 hr 10/03/21 11:04 10/03/21 12:01 10/03/21 12:56 Temperature 36.9 C Temperature Source Temporal Artery Scan Pulse Rate 100 H Pulse Rate [Left Apical] 84 67 Respiratory Rate 16 18 18 Respiratory Effort / Characteristics Non-Labored Non-Labored Spontaneous Non-Labored Spontaneous Respiratory Depth Normal Normal Normal Respiratory Pattern Regular Regular Blood Pressure 139/92 Blood Pressure [Right Arm] 148/99 H 169/92 H Blood Pressure Mean 107 Blood Pressure Mean [Right Arm] 115 117 Blood Pressure Position [Right Arm] Sitting Sitting Pulse Oximetry 96 97 94 Oxygen Delivery Method Room Air Room Air Room Air Sepsis Recent Fever Within 48 Hours No Sepsis New/Unexplained Change in Mental Status N/A Sepsis Action Taken by Nursing No Action Required 10/03/21 13:30 10/03/21 14:32 Temperature Temperature Source Pulse Rate 68 79 Pulse Rate [Left Apical] Respiratory Rate 18 20 Respiratory Effort / Characteristics Respiratory Depth Respiratory Pattern Blood Pressure 162/92 H 132/90 Blood Pressure [Right Arm] Blood Pressure Mean 115 104 Blood Pressure Mean [Right Arm] Blood Pressure Position [Right Arm] Pulse Oximetry 96 96 Oxygen Delivery Method Room Air Sepsis Recent Fever Within 48 Hours Sepsis New/Unexplained Change in Mental Status Sepsis Action Taken by Nursing Laboratory Data Result diagrams: 10/03/21 11:27 10/03/21 11:27 Lab Results 10/03/21 10/03/21 10/03/21 Range/Units 11:27 11:27 14:31 WBC 8.72 (4.8-10.8) K/uL RBC 4.60 (4.2-5.4) M/uL Hgb 12.7 (12.0-16.0) g/dL Hct 39.3 (37-47) % MCV 85.4 (80-100) fL MCH 27.6 (25-34) pg MCHC 32.3 (32-36) g/dL RDW Std Deviation 48.1 H (36.4-46.3) fL RDW Coeff of Deidra 15.3 H (11.5-14.5) % Plt Count 211 (130-400) K/uL MPV 9.3 (7.4-10.4) fL Immature Gran % (Auto) 0.1 % Neut % (Auto) 63.8 % Lymph % (Auto) 29.5 % [place] % (Auto) 6.4 % Eos % (Auto) 0.2 % Baso % (Auto) 0.0 % Neut # (Auto) 5.56 (1.4-6.5) K/uL Lymph # (Auto) 2.57 (1.2-3.4) K/uL [place] # (Auto) 0.56 (0.11-0.59) K/uL Eos # (Auto) 0.02 (0-0.5) K/uL Baso # (Auto) 0.00 (0-0.2) K/uL Immature Gran # (Auto) 0.01 (0.00-0.02) K/uL Sodium 138 (136-145) mmol/L Potassium 3.9 (3.5-5.1) mmol/L Chloride 106 (98-107) mmol/L Carbon Dioxide 23 (21-32) mmol/L Anion Gap 9 (3-11) BUN 7 (6-23) mg/dl Creatinine 0.65 (0.6-1.2) mg/dl Est Cr Clr Drug Dosing 88.7 ml/min Est GFR ( Amer) 108.7 ml/min Est GFR (Non-Af Amer) 93.8 ml/min BUN/Creatinine Ratio 10.8 (10-20) Glucose 111 H (70-99(Fasting)) mg/dl Calcium 9.3 (8.5-10.1) mg/dl Total Bilirubin 0.7 (0.2-1.0) mg/dl AST 25 (13-39) U/L ALT 15 (7-52) U/L Alkaline Phosphatase 139 H (34-104) U/L Total Protein 7.9 (6.0-8.3) gm/dl Albumin 3.9 (3.4-5.0) gm/dl Globulin 4.0 (2.5-4.0) gm/dl Albumin/Globulin Ratio 1.0 (0.9-2) Lipase 12 (11-82) U/L SARS-CoV-2, RNA, NAAT NEGATIVE (NEGATIVE) Administered Medications Discontinued Medications Sodium Chloride (Nss 1000ml) 500 mls @ 999 mls/hr IV .Q31M ONE Stop: 10/03/21 12:04 Last Infusion: 10/03/21 12:16 Dose: 0 mls/hr Documented by: [id number] Admin: 10/03/21 11:42 Dose: 999 mls/hr Documented by: [id number] Ioversol (Optiray 320 100ml) 95 ml IV ONCE ONE Stop: 10/03/21 12:27 Last Admin: 10/03/21 12:28 Dose: 95 ml Documented by: [id number] Morphine Sulfate (Morphine Sulfate 4 Mg/Ml 1 Ml Carp\\Vial) 4 mg IV NOW STA Stop: 10/03/21 11:34 Last Admin: 10/03/21 11:43 Dose: 4 mg Documented by: [id number] Ondansetron HCl (Ondansetron Inj 2 Mg/Ml 2 Ml Vial) 4 mg IV NOW STA Stop: 10/03/21 11:34 Last Admin: 10/03/21 11:43 Dose: 4 mg Documented by: [id number] Imaging Data Radiologist's Impression: Abdomen/Pelvis CT 10/03/21 11:[address] WITH IV CONTRAST CT DOSE: 681.78 mGy.cm HISTORY: Left-sided abd pain, constipation, hx of colon ca TECHNIQUE: Multiaxial CT images of the abdomen and pelvis were performed following the use of intravenous contrast. A dose lowering technique was utilized adhering to the principles of ALARA. COMPARISON STUDY: Abdomen and pelvis CT 10/03/2021. FINDINGS: Mild mosaic attenuation within the lung bases suggestive of air- trapping. No pneumoperitoneum. No pneumatosis. There is a left total hip arthroplasty. Stable 18 mm left lateral breast nodule. No suspicious lytic are blastic osseous lesions. The spleen, adrenal glands, and pancreas are unremarkable. The main portal vein is patent. Normal caliber abdominal aorta. No retroperitoneal lymphadenopathy. No pelvic lymphadenopathy. Stable 1.4 cm cyst within the lower pole of the right kidney. Bilateral extrarenal pelvis sees are again noted. No hydronephrosis. The bladder, uterus, bilateral adnexa are within normal limits. Postoperative changes consistent with prior rectosigmoid anastomosis. Small linear scarlike densities noted within the presacral space. No perirectal abscess identified. Focal narrowing at the rectosigmoid anastomosis. Proximal to this anastomosis, the majority the colon is distended and filled with stool. Therefore, this raises the possibility of a partial large bowel obstruction with the transition point at the rectosigmoid anastomosis There is mild to moderate bowel wall thickening involving the transverse colon, descending colon, sigmoid colon, and rectum. This is consistent with a nonspecific colitis and favors an infectious or inflammatory process. A stercoral colitis is considered less likely but not entirely excluded given the large amount of stool seen throughout the colon. A few colonic diverticula. No evidence for acute diverticulitis. Normal appendix. No dilated loops of small bowel identified. Cholelithiasis. There are scattered peripheral calcifications within the wall of the gallbladder fundus, unchanged. Stable subtle 11 mm hypodense lesion within the left hepatic lobe. Mild pericolonic fat stranding at the distal colon. IMPRESSION: 1. Mild to moderate colonic wall thickening involving the majority the transverse colon, descending colon, sigmoid colon, and rectum with mild pericolonic fat stranding. This is consistent with a nonspecific colitis but favors an infectious or inflammatory process. There is also a large amount well- formed stool within the majority of the colon. A stercoral colitis is considered less likely but not entirely excluded. 2. The majority of the colon is distended and filled with a large amount of stool. There is distal tapering of the descending colon and sigmoid colon to the level of the rectosigmoid anastomosis which demonstrates focal narrowing. Therefore, this could represent a partial large bowel obstruction with the transition point at the rectosigmoid anastomosis. 3. Cholelithiasis and a few scattered gallbladder wall calcifications at the fundus. This remains unchanged. 4. Stable 18 mm left breast nodule. 5. Additional findings as described above. ACT 112: Negative or not required by law. Electronically signed by: Reggie Hernandez M.D. 10/03/2021 12:44 PM Discharge Plan Visit Data Chief Complaint: Abdominal Pain Stated Complaint: ABDOMINAL PAIN, VOMITING ED Provider: Basil Tamez Discharge Problem: Abdominal pain, Colonic mass Patient Disposition: Admitted As Inpatient Discharge Instructions Interventions: ED Discharge Assessment Last Done: 10/03/21 15:20 Forms Stand Alone Forms: [facility] Prescriptions Prescriptions: No Action cholecalciferol (vitamin D3) 50 mcg (2,000 unit) tablet 50 mcg PO QAM RF: 0 irbesartan 150 mg tablet 150 mg PO QAM 30 Days Qty: 30 RF: 11 aspirin 81 mg Tablet,Delayed Release (Dr/Ec) 81 mg PO QAM Qty: 30 RF: 0 Referrals Referrals: PCP,NO [Primary Care Provider] - Discharge Problem: Abdominal pain Qualifiers: Abdominal location: left lower quadrant Qualified Code(s): R10.32 - Left lower quadrant pain
[2021-10-03 11:40] LABS: Eosinophils # (auto) 0.02 K/uL (0-0.5); Eosinophils % (auto) 0.2 %; Hematocrit (blood only) 39.3 % (37-47); Hemoglobin 12.7 g/dL (12.0-16.0); Immature Granulocytes # (auto) 0.01 K/uL (0.00-0.02); Immature Granulocytes % (auto) 0.1 %; Lymphocytes # (auto) 2.57 K/uL (1.2-3.4); Lymphocytes % (auto) 29.5 %; Mean Corpuscular Hemoglobin 27.6 pg (25-34); Mean Corpuscular Hgb Conc 32.3 g/dL (32-36); Mean Corpuscular Volume 85.4 fL (80-100); Mean Platelet Volume 9.3 fL (7.4-10.4); Monocytes # (auto) 0.56 K/uL (0.11-0.59); Monocytes % (auto) 6.4 %; Neutrophils # (auto) 5.56 K/uL (1.4-6.5); Neutrophils % (auto) 63.8 %; Platelet Count 211 K/uL (130-400); RDW Coefficient of Variation 15.3 % (11.5-14.5); RDW Standard Deviation 48.1 fL (36.4-46.3); White Blood Count 8.72 K/uL (4.8-10.8)
[2021-10-03 12:04] LABS: Albumin Level 3.9 gm/dl (3.4-5.0); BUN Creatinine Ratio 10.8 (10-20); Bilirubin,Total 0.7 mg/dl (0.2-1.0); Calcium 9.3 mg/dl (8.5-10.1); Creatinine Clr Calc Pharmacy 88.7 ml/min; Est GFR (African American) 108.7 ml/min; Est GFR (Non-African American) 93.8 ml/min; Potassium 3.9 mmol/L (3.5-5.1); Total Protein 7.9 gm/dl (6.0-8.3)
[2021-10-03] MEDS ORDERED: OPTIRAY 320 100ml IV ONE (12:26)
--- NOTE | 2021-10-03 12:46 | CT Scan Report ---
ABDOMEN AND PELVIS CT WITH IV CONTRAST CT DOSE: 681.78 mGy.cm HISTORY: Left-sided abd pain, constipation, hx of colon ca TECHNIQUE: Multiaxial CT images of the abdomen and pelvis were performed following the use of intrave nous contrast. A dose lowering technique was utilized adhering to the principles of ALARA. COMPARISON STUDY: Abdomen and pelvis CT 10/03/2021. FINDINGS: Mild mosaic attenuation within the lung bases suggestive of air-trapping. No pneumoperitone um. No pneumatosis. There is a left total hip arthroplasty. Stable 18 mm left lateral breast nodule. No suspicious lytic are blastic osseous lesions. The spleen, adrenal glands, and pancreas are unremar kable. The main portal vein is patent. Normal caliber abdominal aorta. No retroperitoneal lymphadenop athy. No pelvic lymphadenopathy. Stable 1.4 cm cyst within the lower pole of the right kidney. Bilate ral extrarenal pelvis sees are again noted. No hydronephrosis. The bladder, uterus, bilateral adnexa are within normal limits. Postoperative changes consistent with prior rectosigmoid anastomosis. Small linear scarlike densities noted within the presacral space. No perirectal abscess identified. Focal narrowing at the rectosigmoid anastomosis. Proximal to this anastomosis, the majority the colon is di stended and filled with stool. Therefore, this raises the possibility of a partial large bowel obstru ction with the transition point at the rectosigmoid anastomosis There is mild to moderate bowel wall thickening involving the transverse colon, descending colon, sigmoid colon, and rectum. This is consi stent with a nonspecific colitis and favors an infectious or inflammatory process. A stercoral coliti s is considered less likely but not entirely excluded given the large amount of stool seen throughout the colon. A few colonic diverticula. No evidence for acute diverticulitis. Normal appendix. No dila kassy loops of small bowel identified. Cholelithiasis. There are scattered peripheral calcifications wi thin the wall of the gallbladder fundus, unchanged. Stable subtle 11 mm hypodense lesion within the l eft hepatic lobe. Mild pericolonic fat stranding at the distal colon. IMPRESSION: 1. Mild to moderate colonic wall thickening involving the majority the transverse colon, descending c olon, sigmoid colon, and rectum with mild pericolonic fat stranding. This is consistent with a nonspe cific colitis but favors an infectious or inflammatory process. There is also a large amount well-for med stool within the majority of the colon. A stercoral colitis is considered less likely but not ent irely excluded. 2. The majority of the colon is distended and filled with a large amount of stool. There is distal ta pering of the descending colon and sigmoid colon to the level of the rectosigmoid anastomosis which d emonstrates focal narrowing. Therefore, this could represent a partial large bowel obstruction with t he transition point at the rectosigmoid anastomosis. 3. Cholelithiasis and a few scattered gallbladder wall calcifications at the fundus. This remains unc hanged. 4. Stable 18 mm left breast nodule. 5. Additional findings as described above. ACT 112: Negative or not required by law. Electronically signed by: Reggie Hernandez M.D. 10/03/2021 12:44 PM
--- NOTE | 2021-10-03 14:31 | Surgery Consultation ---
Date of Consultation October 03, 2021 Assessment & Plan (1) Colitis: This is a 66yF primarily [place] speaking with a PMH of colon cancer who is s/p an LAR on 01/26/[address] Bueno who presents to the [facility] ED on 10/03/21 with complaints of abdominal pain, n/v, and constipation over the last couple of days. A CT a/p was performed that revealed findings consistent with nonspecific colitis of the colon with a large amount of stool burden. In addition there appears to be a focal narrowing at the level of the rectosigmoid anastomosis resulting in a probable partial large bowel obstruction. Labs are unremarkable with WBC 8.7, Hbg 12.7, Cr 0.6. She is hypertensive 160/90s, otherwise vitals s table. On exam abdomen is soft, non distended, with mild discomfort to left and lower b/l abdomen. Our recommendations would be for medical admission for workup of colitis in addition to a GI consultation for their input regarding consideration of a colonoscopy to evaluate possible narrowing at site of anastomosis. No plans for surgical intervention at this time. We will follow along. History of Present Illness History of Present Illness This is a 66yF primarily [place] speaking with a PMH of colon cancer who is s/p an LAR on 01/26/[address] Bueno who presents to the [facility] ED on 10/03/21 with complaints of abdominal pain and constipation. Patient reports her symptoms started a couple days ago, she developed spasmodic type pain in the abdomen and developed constipation despite being on Miralax. She says she'll normally have 1-2 BM's a day, but have noticed they've been small in caliber and less frequent. She had a small BM this AM but feels like her bowels are not empty. She is passing flatus. She rated her abdominal pain a 9/10 last night and into this morning. She developed subsequent nausea and vomited last night in addition to today. She reported to the ER due to her symptoms. A CT a/p was performed that revealed findings consistent with nonspecific colitis of the colon with a large amount of stool burden. In addition there appears to be a focal narrowing at the level of the rectosigmoid anastomosis resulting in a probable partial large bowel obstruction. The patient denies any sick contacts, blood in the stool, fevers/chills, CP/SOB. She has completed her course of chemo in August. She states since chemo she has not had much of an appetite. Allergies Allergy/AdvReac Type Severity Reaction Status Date / Time alendronate sodium AdvReac Mild GI Verified 06/14/21 11:24 [From Fosamax] Upset/Myalgia Home Medications Medication Instructions Recorded Confirmed Type aspirin 81 mg tablet,delayed 81 mg PO QAM #30 tab 01/31/21 03/31/21 Rx release irbesartan 150 mg tablet 150 mg PO QAM 30 Days #30 tab 06/14/21 06/14/21 Rx cholecalciferol (vitamin D3) 50 50 mcg PO DAILY 06/16/21 History mcg (2,000 unit) tablet Patient History Medical History Anemia Cholelithiasis Colon cancer Degenerative disc disease lumbar History of COVID-19 Dx 09/2020 > symptoms at time of: fatigue, poor appetite, generalized weakness, body aches > resolved Hypertension Obesity OP (osteoporosis) Rectal mass Rectal stent placed during colonoscopy Surgical History History of colon resection Open lower anterior colon resection (01/26/2021): Grade view 1, Jackson #2, ETT 7.5 at [facility] ( + TAP block) History of colonoscopy History of left hip replacement History of low anterior resection of rectum History of total shoulder replacement Right reverse TSA: 05/26/18: Grade view 1, MAC#3, ETT 7.5 at [facility] Port-A-Cath in place (03/23/21) Insertion of Access Port with Fluoroscopy Dr. Bueno 03/23/21 Family History Father Parkinsonism Stroke Mother Anemia Colorectal cancer Brother Bicuspid aortic valve Other No family history of adverse response to anesthesia Social History Smoking Status: Never smoker Second Hand Exposure: No; Hx Alcohol Use: Yes Alcohol type: wine Hx Substance Use: No Preferred Language: [place] Communication Ability: Impaired Communication Tools: IPad and Language Line Surface Supply Breathing Apparatus Surface Supply Breathing Apparatus Required: Yes Beliefs That Will Affect Care: None marital status: Current Living Situation: Spouse Current Living 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 Comment: 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 How many Children do You have: 3 Feels Safe at Home: Yes Assistive Devices: Glasses Review of Systems Constitutional: + anorexia; no fever and no chills Respiratory: no dyspnea Cardiovascular: no chest pain Gastrointestinal: + abdominal pain, + bloating, + nausea, + vomiting and + constipation; no blood in stools Physical Exam Physical Exam: awake/alert, no acute distress Respiratory: normal respiratory effort Gastrointestinal (Abdomen): Inspection/Auscultation: + abdominal surgical scar (midline scar well healed); abdomen not distended Percussion/Palpation: + abdomen tender (non specific discomfort to left mid abd and b/l lower abdomen) and abdomen soft Results & Data ([facility]) Vital Signs (Past 12 Hours) Vital Signs Temp Pulse Pulse Resp BP BP Pulse Ox 10/03/21 13:30 68 18 162/92 H 96 10/03/21 12:56 67 18 169/92 H 94 10/03/21 12:01 84 18 148/99 H 97 10/03/21 11:04 36.9 C 100 H 16 139/92 96 Diagnostic Findings ABDOMEN AND PELVIS CT WITH IV CONTRAST CT DOSE: 681.78 mGy.cm HISTORY: Left-sided abd pain, constipation, hx of colon ca TECHNIQUE: Multiaxial CT images of the abdomen and pelvis were performed following the use of intravenous contrast. A dose lowering technique was utilized adhering to the principles of ALARA. COMPARISON STUDY: Abdomen and pelvis CT 10/03/2021. FINDINGS: Mild mosaic attenuation within the lung bases suggestive of air- trapping. No pneumoperitoneum. No pneumatosis. There is a left total hip arthroplasty. Stable 18 mm left lateral breast nodule. No suspicious lytic are blastic osseous lesions. The spleen, adrenal glands, and pancreas are unremarkable. The main portal vein is patent. Normal caliber abdominal aorta. No retroperitoneal lymphadenopathy. No pelvic lymphadenopathy. Stable 1.4 cm cyst within the lower pole of the right kidney. Bilateral extrarenal pelvis sees are again noted. No hydronephrosis. The bladder, uterus, bilateral adnexa are within normal limits. Postoperative changes consistent with prior rectosigmoid anastomosis. Small linear scarlike densities noted within the presacral space. No perirectal abscess identified. Focal narrowing at the rectosigmoid anastomosis. Proximal to this anastomosis, the majority the colon is distended and filled with stool. Therefore, this raises the possibility of a partial large bowel obstruction with the transition point at the rectosigmoid anastomosis There is mild to moderate bowel wall thickening involving the transverse colon, descending colon, sigmoid colon, and rectum. This is consistent with a nonspecific colitis and favors an infectious or inflammatory process. A stercoral colitis is considered less likely but not entirely excluded given the large amount of stool seen throughout the colon. A few colonic diverticula. No evidence for acute diverticulitis. Normal appendix. No dilated loops of small bowel identified. Cholelithiasis. There are scattered peripheral calcifications within the wall of the gallbladder fundus, unchanged. Stable subtle 11 mm hypodense lesion within the left hepatic lobe. Mild pericolonic fat stranding at the distal colon. IMPRESSION: 1. Mild to moderate colonic wall thickening involving the majority the transverse colon, descending colon, sigmoid colon, and rectum with mild pericolonic fat stranding. This is consistent with a nonspecific colitis but favors an infectious or inflammatory process. There is also a large amount well- formed stool within the majority of the colon. A stercoral colitis is considered less likely but not entirely excluded. 2. The majority of the colon is distended and filled with a large amount of stool. There is distal tapering of the descending colon and sigmoid colon to the level of the rectosigmoid anastomosis which demonstrates focal narrowing. Therefore, this could represent a partial large bowel obstruction with the transition point at the rectosigmoid anastomosis. 3. Cholelithiasis and a few scattered gallbladder wall calcifications at the fundus. This remains unchanged. 4. Stable 18 mm left breast nodule. 5. Additional findings as described above. ACT 112: Negative or not required by law. Electronically signed by: Reggie Hernandez M.D. 10/03/2021 12:44 PM PG Care Time/CCT Total # of Minutes Spent Total Time Spent with Patient: Total time spent is greater than 50% in coordination of care (as documented) at patient's floor/unit and/or counseling patient: Coding Level of Care Code 60302 Inpt Consult Level 3 Diagnoses Colitis K52.9
--- NOTE | 2021-10-03 15:04 | History & Physical Report ---
Date of Service October 03, 2021 Assessment & Plan (1) Bowel obstruction: Plan: Partial. NPO. LR @ 125ml/hr Acetaminophen IV for pain relief Appreciate surgery consult (2) Colitis: Plan: Stool PCR CRP/ESR Consult GI (3) Hypertension: Plan: Hold irbesartan while NPO (4) Colon cancer: Plan: s/p resection and chemotherapy Plan: VTE Prophylaxis - chemical deferred pending GI consult Diet - NPO Disposition - admit to med/surg Admission and Anticipated Discharge Date Admission Date: October 03, 2021 History of Present Illness Chief Complaint: Abdominal pain Primary Care Provider: NO PCP Jenna Tolbert is a 66 year old female with significant history of colon cancer s/p open low anterior colon resection in December 2020 who presents to the ER with abdominal pain. Patient is [place] speaking and history taken using [place] dry press operator via iPad. She reports completing chemotherapy on August 30 - during this she did very well without nausea, vomiting or diarrhea. Over the last 2 days she started having severe spasms in her abdomen (mainly left sided). Pain became worse today therefore she decided to come to the ER. No significant bowel movement in the last 3 days - just mild very liquid stool. Last night and this morning she had vomiting episode. No fever or chills. No chest pain or shortness of breath. In the ER CT A/P was concerning for partial bowel obstruction at her anastomosis site as well as colitis. She has been seen by surgery and recommend GI consult for consideration of colonoscopy. She was referred to medicine for admission and ongoing management of colon mass. Allergies Allergy/AdvReac Type Severity Reaction Status Date / Time alendronate sodium AdvReac Mild GI Verified 06/14/21 11:24 [From Fosamax] Upset/Myalgia Home Medications Medication Instructions Recorded Confirmed Type aspirin 81 mg tablet,delayed 81 mg PO QAM #30 tab 01/31/21 10/03/21 Rx release irbesartan 150 mg tablet 150 mg PO QAM 30 Days #30 tab 06/14/21 10/03/21 Rx cholecalciferol (vitamin D3) 50 50 mcg PO QAM 06/16/21 10/03/21 History mcg (2,000 unit) tablet Past Med/Surg History Medical History Anemia Cholelithiasis Colon cancer Degenerative disc disease lumbar History of COVID-19 Dx 09/2020 > symptoms at time of: fatigue, poor appetite, generalized weakness, body aches > resolved Hypertension Obesity OP (osteoporosis) Rectal mass Rectal stent placed during colonoscopy Surgical History History of colon resection Open lower anterior colon resection (01/26/2021): Grade view 1, Jackson #2, ETT 7.5 at [facility] ( + TAP block) History of colonoscopy History of left hip replacement History of low anterior resection of rectum History of total shoulder replacement Right reverse TSA: 05/26/18: Grade view 1, MAC#3, ETT 7.5 at [facility] Port-A-Cath in place (03/23/21) Insertion of Access Port with Fluoroscopy Dr. 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 Physical Exam Constitutional: WD/WN, vitals as above ENMT: external ear and nose normal, oropharynx normal Neck: trachea midline, no thyromegaly Respiratory: normal respiratory effort, lungs clear to auscultation Cardiovascular: RRR, no murmur, no edema Gastrointestinal (Abdomen): Inspection/Auscultation: normal bowel sounds Percussion/Palpation: + abdomen tender (left sided) and abdomen soft; no guarding and abdomen not rigid Musculoskeletal: no cyanosis or clubbing, extremities motor strength 5/5 Skin: no rashes, warm and dry Neurologic: moves all extremities and awake; not confused Motor/Sensory: + sensory deficit (numbness in fingers and toes) Psychiatric: A+Ox3, euthymic affect Genitourinary: no CVA tenderness Results & Data Results & Data ([facility]) Vital Signs (Past 12 Hours) Vital Signs Temp Pulse Pulse Resp BP BP Pulse Ox 10/03/21 14:32 79 20 132/90 96 10/03/21 13:30 68 18 162/92 H 96 10/03/21 12:56 67 18 169/92 H 94 10/03/21 12:01 84 18 148/99 H 97 10/03/21 11:04 36.9 C 100 H 16 139/92 96 Diagnostic Findings ABDOMEN AND PELVIS CT WITH IV CONTRAST CT DOSE: 681.78 mGy.cm HISTORY: Left-sided abd pain, constipation, hx of colon ca TECHNIQUE: Multiaxial CT images of the abdomen and pelvis were performed following the use of intravenous contrast. A dose lowering technique was utilized adhering to the principles of ALARA. COMPARISON STUDY: Abdomen and pelvis CT 10/03/2021. FINDINGS: Mild mosaic attenuation within the lung bases suggestive of air- trapping. No pneumoperitoneum. No pneumatosis. There is a left total hip arthroplasty. Stable 18 mm left lateral breast nodule. No suspicious lytic are blastic osseous lesions. The spleen, adrenal glands, and pancreas are unremarkable. The main portal vein is patent. Normal caliber abdominal aorta. No retroperitoneal lymphadenopathy. No pelvic lymphadenopathy. Stable 1.4 cm cyst within the lower pole of the right kidney. Bilateral extrarenal pelvis sees are again noted. No hydronephrosis. The bladder, uterus, bilateral adnexa are within normal limits. Postoperative changes consistent with prior rectosigmoid anastomosis. Small linear scarlike densities noted within the presacral space. No perirectal abscess identified. Focal narrowing at the rectosigmoid anastomosis. Proximal to this anastomosis, the majority the colon is distended and filled with stool. Therefore, this raises the possibility of a partial large bowel obstruction with the transition point at the rectosigmoid anastomosis There is mild to moderate bowel wall thickening involving the transverse colon, descending colon, sigmoid colon, and rectum. This is consistent with a nonspecific colitis and favors an infectious or inflammatory process. A stercoral colitis is considered less likely but not entirely excluded given the large amount of stool seen throughout the colon. A few colonic diverticula. No evidence for acute diverticulitis. Normal appendix. No dilated loops of small bowel identified. Cholelithiasis. There are scattered peripheral calcifications within the wall of the gallbladder fundus, unchanged. Stable subtle 11 mm hypodense lesion within the left hepatic lobe. Mild pericolonic fat stranding at the distal colon. IMPRESSION: 1. Mild to moderate colonic wall thickening involving the majority the transverse colon, descending colon, sigmoid colon, and rectum with mild pericolonic fat stranding. This is consistent with a nonspecific colitis but favors an infectious or inflammatory process. There is also a large amount well- formed stool within the majority of the colon. A stercoral colitis is considered less likely but not entirely excluded. 2. The majority of the colon is distended and filled with a large amount of stool. There is distal tapering of the descending colon and sigmoid colon to the level of the rectosigmoid anastomosis which demonstrates focal narrowing. Therefore, this could represent a partial large bowel obstruction with the transition point at the rectosigmoid anastomosis. 3. Cholelithiasis and a few scattered gallbladder wall calcifications at the fundus. This remains unchanged. 4. Stable 18 mm left breast nodule. 5. Additional findings as described above. Medications Administered ER Medications Given: Morphine 4mg IV Ondansetron 4mg IV NSS 500ml bolus Code Status & VTE Plan Code Status Full VTE Prophylaxis Plan VTE Prophylaxis will be ordered: Yes PG Care Time/CCT Total # of Minutes Spent Total Time Spent with Patient: Total time spent is greater than 50% in coordination of care (as documented) at patient's floor/unit and/or counseling patient: Coding Level of Care Code 00784 Initial Inpt Care Lvl 2 Diagnoses Hypertension I10 Bowel obstruction K56.609 Colitis K52.9 Colon cancer C18.9
[2021-10-03] MEDS ORDERED: ACETAMINOPHEN 1,000 MG/100 ML VIAL IV PRN (15:53)
[2021-10-03] MEDS ORDERED: ONDANSETRON INJ 2 MG/ML 2 ML VIAL IV PRN (15:53)
[2021-10-03] MEDS: LACTATED RINGER'S 1,000 ML IV SCH (16:31)
[2021-10-04] MEDS: LACTATED RINGER'S 1,000 ML IV SCH ×3 (00:13→19:38)
[2021-10-04 06:44] LABS: Basophils # (auto) 0.02 K/uL (0-0.2); Basophils % (auto) 0.4 %; Eosinophils # (auto) 0.07 K/uL (0-0.5); Eosinophils % (auto) 1.6 %; Hemoglobin 9.9 g/dL (12.0-16.0); Lymphocytes # (auto) 2.13 K/uL (1.2-3.4); Lymphocytes % (auto) 47.5 %; Mean Corpuscular Hemoglobin 27.5 pg (25-34); Mean Corpuscular Hgb Conc 31.9 g/dL (32-36); Mean Corpuscular Volume 86.1 fL (80-100); Mean Platelet Volume 9.4 fL (7.4-10.4); Monocytes # (auto) 0.43 K/uL (0.11-0.59); Monocytes % (auto) 9.6 %; Neutrophils # (auto) 1.83 K/uL (1.4-6.5); Neutrophils % (auto) 40.9 %; Platelet Count 142 K/uL (130-400); RDW Coefficient of Variation 15.4 % (11.5-14.5); RDW Standard Deviation 49.2 fL (36.4-46.3); White Blood Count 4.48 K/uL (4.8-10.8)
[2021-10-04 07:27] LABS: Albumin Level 3.1 gm/dl (3.4-5.0); BUN Creatinine Ratio 11.3 (10-20); Bilirubin,Total 0.5 mg/dl (0.2-1.0); Calcium 8.3 mg/dl (8.5-10.1); Creatinine Clr Calc Pharmacy 92.8 ml/min; Est GFR (African American) 110.4 ml/min; Est GFR (Non-African American) 95.3 ml/min; Globulin 3.1 gm/dl (2.5-4.0); Potassium 4.4 mmol/L (3.5-5.1); Total Protein 6.2 gm/dl (6.0-8.3)
--- NOTE | 2021-10-04 09:30 | Gastrointestinal Consultation ---
Date of Consultation October 04, 2021 Assessment & Plan (1) Bowel obstruction: -Fleet enema now -Flex sig today Supervising Physician Co-Signing Physician Notes Agree with DOUG Trent as above Gen: Awake, Cooperative, NAD Chest: CTA B/L -w/r CVS: RRR Abd: Soft, NT, distended, - BS, -HSM Ext: -c/c/e Fleets enema x1 today, then colonoscopy for evaluation of anastomosis to see if there is a stricture or other source of Large Bowel obstruction. History of Present Illness Reason for Consultation: Large bowel obstruction Attending Physician: Will Jackson MD History of Present Illness Jenna Tolbert is a 66 year old female with significant history of colon cancer s/p open low anterior colon resection in December 2020 who presents to the ER with abdominal pain. Patient is [place] speaking. She notes she completed her recent round of chemotherapy on 08/30/21 and tolerated it well. She notes that she has had several days of left sided abdominal pain that ultimately led her to the ER. She notes associated constipation over the past several days as well. She reports passing gas this AM. In the ER CT A/P was concerning for partial bowel obstruction at her anastomosis site as well as nonspecific colitis. She has been seen by surgery and recommend GI consult for consideration of colonoscopy. Her sister participates in her evaluation this AM via telephone. Allergies Allergy/AdvReac Type Severity Reaction Status Date / Time alendronate sodium AdvReac Mild GI Verified 06/14/21 11:24 [From Fosamax] Upset/Myalgia Home Medications Medication Instructions Recorded Confirmed Type aspirin 81 mg tablet,delayed 81 mg PO QAM #30 tab 01/31/21 10/03/21 Rx release irbesartan 150 mg tablet 150 mg PO QAM 30 Days #30 tab 06/14/21 10/03/21 Rx cholecalciferol (vitamin D3) 50 50 mcg PO QAM 06/16/21 10/03/21 History mcg (2,000 unit) tablet Patient History Medical History (Updated 10/04/21 @ 12:54 by Gianluca Mejia MD) Anemia Cholelithiasis Colon cancer Degenerative disc disease lumbar Encounter for pre-operative examination History of COVID-19 Dx 09/2020 > symptoms at time of: fatigue, poor appetite, generalized weakness, body aches > resolved Hypertension Obesity OP (osteoporosis) Rectal mass Rectal stent placed during colonoscopy Surgical History History of colon resection Open lower anterior colon resection (01/26/2021): Grade view 1, Jackson #2, ETT 7.5 at [facility] ( + TAP block) History of colonoscopy History of left hip replacement History of low anterior resection of rectum History of total shoulder replacement Right reverse TSA: 05/26/18: Grade view 1, MAC#3, ETT 7.5 at [facility] Port-A-Cath in place (03/23/21) Insertion of Access Port with Fluoroscopy Dr. 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 How many Children do You have: 3 Feels Safe at Home: Yes Assistive Devices: None Review of Systems Constitutional: no fever and no chills Respiratory: no cough and no dyspnea Cardiovascular: no chest pain Gastrointestinal: + abdominal pain and + change in bowel habits Musculoskeletal: no problem reported Psychiatric: no problem reported Hematologic / Lymphatic: no unexplained weight loss Physical Exam Constitutional: well developed Respiratory: normal respiratory effort Cardiovascular: Rate/Rhythm: regular rate Gastrointestinal (Abdomen): Inspection/Auscultation: + abdomen distended; + abnormal bowel sounds Percussion/Palpation: + abdomen tender Musculoskeletal: Head/Neck/Chest: normocephalic Psychiatric: Orientation: alert and oriented x 3 Results & Data ([facility]) Vital Signs (Past 12 Hours) Vital Signs Temp Pulse Resp BP Pulse Ox 10/04/21 07:21 36.7 C 70 18 122/83 91 10/03/21 22:22 36.7 C 69 16 113/73 93 PG Care Time/CCT Total # of Minutes Spent Total Time Spent with Patient: Total time spent is greater than 50% in coordination of care (as documented) at patient's floor/unit and/or counseling patient: Coding Level of Care Code 24410 Inpt Consult Level 4 Diagnoses Bowel obstruction K56.609
[2021-10-04] MEDS ORDERED: SOD PHOSPHATE/SOD BIPHOSPHATE ENEMA 132 ML BTL PR STA (11:08)
--- NOTE | 2021-10-04 12:47 | Anesthesiology Consultation ---
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 initiated Consults Requested none Proposed Anesthesia Anesthesia Type: MAC Risk / Benefits Reviewed With: PT / POA / Parent / Guardian, Accepts Plan and Informed Consent Obtained History Surgery Operation Date: 10/04/21 16:45 Proposed Procedures p Flexible Sigmoidoscopy Dr Kevin Brown, DO Height/Weight Height: 5 ft 1.81 in Weight: 85.9 kg Allergies Allergy/AdvReac Type Severity Reaction Status Date / Time alendronate sodium AdvReac Mild GI Verified 06/14/21 11:24 [From Fosamax] Upset/Myalgia Medications Home Medications Medication Instructions Recorded Confirmed Last Taken aspirin 81 mg tablet,delayed 81 mg PO QAM #30 tab 01/31/21 10/03/21 10/02/21 release irbesartan 150 mg tablet 150 mg PO QAM 30 Days #30 tab 06/14/21 10/03/21 0 10/02/21 cholecalciferol (vitamin D3) 50 50 mcg PO QAM 06/16/21 10/03/21 10/02/21 mcg (2,000 unit) tablet Active Medications Generic Name Dose Route Start Last Admin Trade Name Freq PRN Reason Stop Dose Admin Lactated Ringer's 1,000 mls @ 125 mls/hr 10/03/21 16:15 10/04/21 12:00 Lr IV 11/02/21 16:14 0 mls/hr .Q8H MARILU Infusion Past Medical History Medical History (Updated 10/04/21 @ 12:54 by Gianluca Mejia MD) Anemia Cholelithiasis Colon cancer Degenerative disc disease lumbar Encounter for pre-operative examination History of COVID-19 Dx 09/2020 > symptoms at time of: fatigue, poor appetite, generalized weakness, body aches > resolved Hypertension Obesity OP (osteoporosis) Rectal mass Rectal stent placed during colonoscopy Past Family History Family History Father Parkinsonism Stroke Mother Anemia Colorectal cancer Brother Bicuspid aortic valve Other No family history of adverse response to anesthesia Past Surgical History Surgical History History of colon resection Open lower anterior colon resection (01/26/2021): Grade view 1, Jackson #2, ETT 7.5 at [facility] ( + TAP block) History of colonoscopy History of left hip replacement History of low anterior resection of rectum History of total shoulder replacement Right reverse TSA: 05/26/18: Grade view 1, MAC#3, ETT 7.5 at [facility] Port-A-Cath in place (03/23/21) Insertion of Access Port with Fluoroscopy Dr. Bueno 03/23/21 Social History Smoking Status: Never smoker Hx Alcohol Use: Yes Alcohol type: wine alcohol intake frequency: holidays/special occasions only Hx Substance Use: No substance use type: does not use Physical Exam Vital Signs Last Vital Signs Temp 36.7 C 10/04/21 07:21 Pulse 70 10/04/21 07:21 Resp 18 10/04/21 07:21 BP 122/83 10/04/21 07:21 Pulse Ox 91 10/04/21 07:21 Testing Laboratory Results 10/04/21 05:47 10/04/21 05:47 Electrocardiogram Date: 01/30/21 Findings: + NSR @ (85) and + T wave inversion Echocardiogram Date: 01/30/21 EF: 65-70% RWMA: + none Other Findings: + LVH (mild)
[2021-10-04] MEDS ORDERED: PIPERACILL/TAZOBAC CONSULT ACTIVE PRN (13:11)
--- NOTE | 2021-10-04 13:13 | Hospitalist Progress Note ---
Date of Service October 04, 2021 Assessment & Plan (1) Bowel obstruction: Plan: - Large bowel/Partial - Maintain NPO status and LR @ 100ml/hr - Acetaminophen IV for pain relief - General surgery saw this AM, no plans for surgical intervention - Appears to be responding to conservative management - Fleet enema ordered with plan to perform flex sig today (2) Colitis: Plan: - Stool PCR ordered but appears still uncollected - ESR elevated at 79 - Consult GI, appreciate assistance - No h/o IBD - No abx started, will start empiric Zosyn 3.375g IV q6h (d/t IV Flagyl being on critical shortage) (3) Hypertension: Plan: - Hold irbesartan while NPO (4) Colon cancer: Plan: s/p low anterior colon resection and chemotherapy which was completed August 30, 2021 Plan: Maintain NPO status for now d/t planned procedure Anticipate could try clears this afternoon since she is passing flatus and abd improved Start empiric abx, f/u labs in AM Above plan of care d/w Dr. Jackson. Admission and Anticipated Discharge Date Admission Date: October 03, 2021 Subjective Patient seen on rounds this morning. Pt hospitalized for colitis and partial large bowel obstruction at site of anastomosis. Pt is primarily Afghan speaking but her sister assists via telephone in translation. Pt reports improvement in her abdominal pain this morning, still mild on the left side, no spasms, denies n/v. Had small bowel movement that was soft this morning, not liquid, no hematochezia or melena. Is passing flatus. Review of Systems Review of Systems: CONSTITUTIONAL: Denies weight loss/gain, fever and chills, fatigue, malaise, generalized weakness. HEENT: Denies changes in vision and hearing. RESPIRATORY: Denies SOB, cough, wheezing. CV: Denies palpitations, CP, lower extremity edema, orthopnea, PND. GI: Denies abdominal pain, nausea, vomiting and diarrhea. : Denies dysuria and urinary frequency, urgency, hesitancy. MUSCULOSKELETAL: Denies myalgia and joint pain. SKIN: Denies rash and pruritus. NEUROLOGICAL: Denies headache, syncope, focal weakness, numbness, tingling. PSYCHIATRIC: Denies recent changes in mood. Denies anxiety and depression. Physical Exam Physical Exam: GENERAL: 66 yo well-developed, well-nourished WF. NAD. LUNGS: Clear to auscultation bilaterally. No W/R/R. CARDIOVASCULAR: Regular rate and rhythm. No M/G/R. No JVD. ABDOMEN: Soft, non-tender and non-distended. BS present x 4 quad. EXTREMITIES: No edema. Non-tender. Peripheral pulses +2/4. NEUROLOGIC: A&O x3. PSYCHIATRIC: Cooperative. Appropriate mood and affect. SKIN: Warm, dry, intact. No rashes or lesions. Results & Data Results & Data ([facility]) Vital Signs (Past 12 Hours) Vital Signs Temp Pulse Resp BP Pulse Ox 10/04/21 07:21 36.7 C 70 18 122/83 91 Laboratory Results 10/04/21 05:47 10/04/21 05:47 PG Care Time/CCT Total # of Minutes Spent Total Time Spent with Patient: Total time spent is greater than 50% in coordination of care (as documented) at patient's floor/unit and/or counseling patient: Coding Level of Care Code 37377 Subseq Hosp Care Lvl 2 Diagnoses Bowel obstruction K56.609 Colitis K52.9 Hypertension I10 Colon cancer C18.9
--- NOTE | 2021-10-04 13:21 | Surgery Progress Note ---
Date of Service October 04, 2021 Assessment & Plan (1) Colitis: (2) Abnormal CT scan, colon: Plan: will re-eval after endoscopic findings and make rec's accordingly (3) Abdominal pain: Admission and Anticipated Discharge Date Admission Date: October 03, 2021 Subjective pt not in her room. I assume she is in endoscopy. Results & Data ([facility]) Vital Signs (Past 12 Hours) Vital Signs Temp Pulse Resp BP Pulse Ox 10/04/21 07:21 36.7 C 70 18 122/83 91 PG Care Time/CCT Total # of Minutes Spent Total Time Spent with Patient: Total time spent is greater than 50% in coordination of care (as documented) at patient's floor/unit and/or counseling patient: Coding Level of Care Code None Diagnoses Colitis K52.[address] scan, colon R93.3 Abdominal pain R10.9
[2021-10-04] MEDS ORDERED: PIPERACILLIN/TAZOBACTAM 3.375 GM in DEXTROSE 5% 100 ML IV ONE (13:45)
[2021-10-04] MEDS ORDERED: PROPOFOL IV EMULSION 10 MG/ML 20 ML VIAL IV ONE (14:25)
[2021-10-04] MEDS ORDERED: LIDOCAINE 2% 2 ML VIAL/AMP(20MG/ML) INFIL ONE (14:25)
--- NOTE | 2021-10-04 15:17 | GI REPORT ---
Patient Name: Jenna Tolbert Procedure Date: 10/04/2021 2:23 PM Date of : 1955 Admit Type: Inpatient Age: 66 Gender: Female Attending MD: Bruce Brown DO Procedure: Flexible Sigmoidoscopy Providers: Bruce Brown DO Referring MD: Will Jackson Md Indications: Colonic obstruction Medicines: Monitored Anesthesia Care Complications: No immediate complications. Estimated Blood Loss: Estimated blood loss: none. Procedure: Pre-Anesthesia Assessment: - Prior to the procedure, a History and Physical was performed, and patient medications and allergies were reviewed. The patient's tolerance of previous anesthesia was also reviewed. The risks and benefits of the procedure and the sedation options and risks were discussed with the patient. All questions were answered, and informed consent was obtained. Prior Anticoagulants: The patient has taken no previous anticoagulant or antiplatelet agents except for aspirin. ASA Grade Assessment: III - A patient with severe systemic disease. After reviewing the risks and benefits, the patient was deemed in satisfactory condition to undergo the procedure. After obtaining informed consent, the endoscope was passed under direct vision. Throughout the procedure, the patient's blood pressure, pulse, and oxygen saturations were monitored continuously. The Scope was introduced through the anus with the intention of advancing to the descending colon. The scope was advanced to the rectum before the procedure was aborted. Medications were given. The flexible sigmoidoscopy was accomplished without difficulty. The patient tolerated the procedure well. The quality of the bowel preparation was good. Findings: The perianal and digital rectal examinations were normal. There was evidence of a prior end-to-side colo-colonic anastomosis in the rectum. This was non-patent and was characterized by severe stenosis. The anastomosis could not be traversed. Impression: - Non-patent end-to-side colo-colonic anastomosis, characterized by severe stenosis. - No specimens collected. Recommendation: - [facility]. - NPO. - Continue present medications. Bruce Brown DO 10/04/2021 3:16:32 PM This report has been signed electronically. Note Initiated On: 10/04/2021 2:23 PM Number of Addenda: 0 I attest to the content of the Intraoperative Record and orders documented therein, exceptions below {[id number]}
--- NOTE | 2021-10-04 17:12 | Anesthesiology Consultation ---
Date of Service October 04, 2021 Assessment & Plan Chart Review Chart Review: Acceptable Risk for Surgery and Patient NOT seen in Pre Admission Testing History Surgery Operation Date: 10/04/21 16:45 Proposed Procedures p Flexible Sigmoidoscopy Dr Kevin Simmons Case, DO Operation Date: 10/05/21 09:10 Proposed Procedures p Colonoscopy Raj Simmons Case, DO Height/Weight Height: 5 ft 1.81 in Weight: 85.9 kg Allergies Allergy/AdvReac Type Severity Reaction Status Date / Time alendronate sodium AdvReac Mild GI Verified 06/14/21 11:24 [From Fosamax] Upset/Myalgia Medications Home Medications Medication Instructions Recorded Confirmed Last Taken aspirin 81 mg tablet,delayed 81 mg PO QAM #30 tab 01/31/21 10/03/21 10/02/21 release irbesartan 150 mg tablet 150 mg PO QAM 30 Days #30 tab 06/14/21 10/03/21 10/02/21 cholecalciferol (vitamin D3) 50 50 mcg PO QAM 06/16/21 10/03/21 10/02/21 mcg (2,000 unit) tablet Active Medications Generic Name Dose Route Start Last Admin Trade Name Freq PRN Reason Stop Dose Admin Lactated Ringer's 1,000 mls @ 100 mls/hr 10/03/21 16:15 10/04/21 13:55 Lr IV 11/02/21 16:14 0 mls/hr .Q10H MARILU Infusion NPO Date Last Intake of Fluids: 10/04/21 Time Last Intake of Fluids: 00:01 Date Last Intake of Solids: 10/04/21 Time Last Intake of Solids: 00:01 Past Medical History Medical History Anemia Cholelithiasis Colon cancer Degenerative disc disease lumbar Encounter for pre-operative examination History of COVID-19 Dx 09/2020 > symptoms at time of: fatigue, poor appetite, generalized weak ness, body aches > resolved Hypertension Obesity OP (osteoporosis) Rectal mass Rectal stent placed during colonoscopy Past Family History Family History Father Parkinsonism Stroke Mother Anemia Colorectal cancer Brother Bicuspid aortic valve Other No family history of adverse response to anesthesia Past Surgical History Surgical History History of colon resection Open lower anterior colon resection (01/26/2021): Grade view 1, Jackson #2, ETT 7.5 at [facility] ( + TAP block) History of colonoscopy History of left hip replacement History of low anterior resection of rectum History of total shoulder replacement Right reverse TSA: 05/26/18: Grade view 1, MAC#3, ETT 7.5 at [facility] Port-A-Cath in place (03/23/21) Insertion of Access Port with Fluoroscopy Dr. Bueno 03/23/21 Social History Smoking Status: Never smoker Hx Alcohol Use: Yes Alcohol type: wine alcohol intake frequency: holidays/special occasions only Hx Substance Use: No substance use type: does not use Physical Exam Vital Signs Last Vital Signs Temp 36.8 C 10/04/21 16:17 Pulse 77 10/04/21 16:17 Resp 18 10/04/21 16:17 BP 149/89 H 10/04/21 16:17 Pulse Ox 94 10/04/21 16:17 Testing Laboratory Results 10/04/21 05:47 10/04/21 05:47 Electrocardiogram Date: 01/30/21 Findings: + NSR @ (85) and + T wave inversion Echocardiogram Date: 01/30/21 EF: 65-70% RWMA: + none Other Findings: + LVH (mild)
[2021-10-04] MEDS: PIPERACILLIN/TAZOBACTAM 3.375 GM in DEXTROSE 5% 100 ML IV SCH (19:38)
[2021-10-05] MEDS: PIPERACILLIN/TAZOBACTAM 3.375 GM in DEXTROSE 5% 100 ML IV SCH ×2 (03:45→12:15)
[2021-10-05] MEDS: LACTATED RINGER'S 1,000 ML IV SCH ×3 (03:45→19:27)
[2021-10-05 07:37] LABS: Basophils # (auto) 0.01 K/uL (0-0.2); Basophils % (auto) 0.2 %; Eosinophils # (auto) 0.04 K/uL (0-0.5); Hematocrit (blood only) 31.9 % (37-47); Hemoglobin 10.3 g/dL (12.0-16.0); Lymphocytes # (auto) 1.63 K/uL (1.2-3.4); Lymphocytes % (auto) 40.3 %; Mean Corpuscular Hemoglobin 27.5 pg (25-34); Mean Corpuscular Hgb Conc 32.3 g/dL (32-36); Mean Corpuscular Volume 85.1 fL (80-100); Mean Platelet Volume 8.4 fL (7.4-10.4); Monocytes # (auto) 0.28 K/uL (0.11-0.59); Monocytes % (auto) 6.9 %; Neutrophils # (auto) 2.08 K/uL (1.4-6.5); Neutrophils % (auto) 51.6 %; Platelet Count 127 K/uL (130-400); RDW Coefficient of Variation 14.9 % (11.5-14.5); RDW Standard Deviation 46.7 fL (36.4-46.3); Red Blood Count 3.75 M/uL (4.2-5.4); White Blood Count 4.04 K/uL (4.8-10.8)
[2021-10-05 07:54] LABS: BUN Creatinine Ratio 12.1 (10-20); Calcium 8.3 mg/dl (8.5-10.1); Creatinine Clr Calc Pharmacy 99.2 ml/min; Est GFR (African American) 112.9 ml/min; Est GFR (Non-African American) 97.4 ml/min; Potassium 4.1 mmol/L (3.5-5.1)
[2021-10-05 08:26] LABS: RBC Morphology Unremarkable
--- NOTE | 2021-10-05 11:34 | Surgery Progress Note ---
Date of Service October 05, 2021 Assessment & Plan (1) Colorectal anastomotic stricture: Plan: She seems to understand what is going on. I spoke with Dr. Brown yesterday who is going to try a gentle balloon dilation of the anastomosis today. If this is unsuccessful I spoke with the primary service and would recommend transfer to a tertiary center for either some more advanced interventional strategies versus a low redo of the colorectal anastomosis. We will follow along and offer assistance as needed. Admission and Anticipated Discharge Date Admission Date: October 03, 2021 Subjective Patient seen. Interview conducted via the iPad burlapper. She has no new complaints today. She tells me that her symptoms started after her final tr eatment of chemotherapy in August. She has been having liquid stools and abdominal pain/cramping. No vomiting today. She does feel hungry. Physical Exam Constitutional: WD/WN, vitals as above no acute distress and not ill appearing Eyes: PERRL, conjunctivae normal, anicteric sclerae EOM intact bilaterally ENMT: external ear and nose normal, oropharynx normal Ears: no hearing impairment Neck: trachea midline, no thyromegaly Respiratory: normal respiratory effort; no respiratory distress and does not use accessory muscles Cardiovascular: Rate/Rhythm: regular rate and regular rhythm Gastrointestinal (Abdomen): Soft. Mild distention. Positive left lower discomfort to palpation. No peritonitis Skin: no rashes, warm and dry Psychiatric: Orientation: alert, oriented x 3 and cooperative Results & Data ([facility]) Vital Signs (Past 12 Hours) Vital Signs Temp Pulse Resp BP Pulse Ox 10/05/21 07:33 36.7 C 67 18 154/81 H 93 PG Care Time/CCT Total # of Minutes Spent Total Time Spent with Patient: Total time spent is greater than 50% in coordination of care (as documented) at patient's floor/unit and/or counseling patient: Coding Level of Care Code 92890 Subseq Hosp Care Lvl 3 Diagnoses Colorectal anastomotic stricture K91.30
--- NOTE | 2021-10-05 12:31 | History & Physical Bridge Note ---
Date of Service October 05, 2021 History & Physical Bridge Note I have examined the patient, reviewed the History & Physical and in the interval since the performance of the History & Physical I have noted the following changes of clinical significance: no changes noted. Keep NPO. Proceed with Colonoscopy with attempt to dilate stricture today. Supervising Physician Co-Signing Physician Notes Agree with DOUG Trent as above Abd: Soft, NT, ND, -BS Proceed with Colonoscopy with dilation of anastomotic stricture today
--- NOTE | 2021-10-05 14:58 | Hospitalist Progress Note ---
Date of Service October 05, 2021 Assessment & Plan (1) Bowel obstruction: Plan: - Large bowel/Partial - Patient with h/o colon CA s/p resection and end-to-end anastomoses. Seems to have a transition point at the site of anastomoses. - sigmoidoscopy attempted 10/04 but unable to advance past the former surgical site - continue NPO status with attempted c.scope today and balloon dilation (GI on board-- appreciate assistance) - seen with Dr. Bueno (general Surgery) today who plans so surgical intervention at this time. Reports if unable to successfully dilate today, may need transferred to tertiary center. (2) Colitis: Plan: - suspect related to stercoral colitis / to above. Stool PCR ordered but appears still uncollected - ESR elevated at 79 - GI on board-- appreciate assistance - No h/o IBD - empirically on Zosyn. No evidence of infectious process. Stop Zosyn (3) Hypertension: Plan: - Hold irbesartan while NPO (4) Colon cancer: Plan: s/p low anterior colon resection and chemotherapy which was completed August 30, 2021 Plan: Maintain NPO status for now d/t planned procedure patient is now 5 days NPO. If persistent much longer, may need to consider TPN Above plan of care d/w Dr. Jackson. Admission and Anticipated Discharge Date Admission Date: October 03, 2021 Subjective Patient seen on daily rounds today. Only Green[place]ic-speaking. Utilized interpret er during exam. Still complaining of abdominal discomfort mostly in the left side. Is passing flatus and had a liquid BM following the enema provided. For colonoscopy today with attempted balloon dilation. Otherwise, she denies any other significant complaints or concerns. Denies fevers, chills, chest pain, shortness breath, abdominal pain, nausea or vomiting. Review of Systems Review of Systems: All systems reviewed and are unremarkable except as noted in HPI and below Denies fevers, chills, headache, nasal congestion, sore throat, cough, chest pain, shortness of breath, palpitations, orthopnea, PND, nausea, vomiting, diarrhea, constipation, dysuria, hematuria, frequency, back pain, joint pain or swelling, easy bruising or bleeding, skin lesions or rashes. Physical Exam Physical Exam: General: Resting comfortably in her hospital bed. NAD. HEENT: Head is AT/NC. Buccal mucosa is moist and pink Neck: No JVD. Negative hepatojugular reflex Cardiac: RRR without M/G/R Lungs: CTA without W/R/R Abdomen: Abdomen is slightly distended. Hypoactive BS except for. Abdomen is soft with exquisite tenderness in the LLQ Extremities: No peripheral clubbing cyanosis or edema Neuro: A&O X4. Cranial nerves II through XII are grossly intact. No focal neuro deficits Skin: No obvious skin lesions or rashes Psych: Appropriate affect. Pleasant and cooperative Results & Data Results & Data ([facility]) Vital Signs (Past 12 Hours) Vital Signs Temp Pulse Resp BP Pulse Ox 10/05/21 14:44 37.3 C 84 20 182/94 H 94 10/05/21 07:33 36.7 C 67 18 154/81 H 93 Laboratory Results 10/05/21 07:06 10/05/21 07:06 PG Care Time/CCT Total # of Minutes Spent Total Time Spent with Patient: Total time spent is greater than 50% in coordination of care (as documented) at patient's floor/unit and/or counseling patient: Coding Level of Care Code 95028 Subseq Hosp Care Lvl 2 Diagnoses Bowel obstruction K56.609 Colitis K52.9 Hypertension I10 Colon cancer C18.9
[2021-10-05] MEDS ORDERED: fentaNYL citrate 100 MCG/2 ML VIAL IV PRN (15:37)
[2021-10-05] MEDS ORDERED: ePHEDrine sulfate 50 MG/ML AMP IV PRN (15:37)
[2021-10-05] MEDS ORDERED: ATROPINE SULFATE 0.1 MG/ML 10ML SYR IV PRN (15:37)
[2021-10-05] MEDS ORDERED: LIDOCAINE 2% 2 ML VIAL/AMP(20MG/ML) INFIL ONE (16:13)
[2021-10-05] MEDS ORDERED: PROPOFOL IV EMULSION 10 MG/ML 20 ML VIAL IV ONE ×3 (16:13→17:06)
--- NOTE | 2021-10-05 17:37 | GI REPORT ---
Patient Name: Jenna Tolbert Procedure Date: 10/05/2021 3:59 PM Date of : 1955 Admit Type: Inpatient Age: 66 Gender: Female Attending MD: Bruce Brown DO Procedure: Colonoscopy Providers: Bruce Brown DO Referring MD: Referred Self Indications: Monitoring for anastomotic stenosis Medicines: Monitored Anesthesia Care Complications: No immediate complications. Estimated Blood Loss: Estimated blood loss was minimal. Procedure: Pre-Anesthesia Assessment: - Prior to the procedure, a History and Physical was performed, and patient medications and allergies were reviewed. The patient's tolerance of previous anesthesia was also reviewed. The risks and benefits of the procedure and the sedation options and risks were discussed with the patient. All questions were answered, and informed consent was obtained. Prior Anticoagulants: The patient has taken no previous anticoagulant or antiplatelet agents. ASA Grade Assessment: II - A patient with mild systemic disease. After reviewing the risks and benefits, the patient was deemed in satisfactory condition to undergo the procedure. After I obtained informed consent, the scope was passed under direct vision. Throughout the procedure, the patient's blood pressure, pulse, and oxygen saturations were monitored continuously. The Endoscope was introduced through the anus and advanced to the descending colon to examine a stenosis. This was the intended extent. The Endoscope was introduced through the anus and advanced to the descending colon to examine a stricture. This was the intended extent. The colonoscopy was performed without difficulty. The patient tolerated the procedure well. The quality of the bowel preparation was poor. Findings: The perianal and digital rectal examinations were normal. There was evidence of a prior end-to-side colo-colonic anastomosis in the rectum. This was non-patent and was characterized by severe stenosis and stenosis 0.3 cm (inner diameter) x 3 cm (length). The anastomosis was traversed after dilation. A TTS dilator was passed through the scope with Acrobat 2 0.035 guidewire. Dilation with an 8-9-10 mm and a 10 mm colonic balloon dilator was performed under fluoroscopic guidance with the aid of contrast in the balloon. The dilation site was examined and showed moderate improvement in luminal narrowing. Estimated blood loss was minimal. Extensive amounts of stool was found in the sigmoid colon and in the descending colon, precluding visualization. Impression: - Preparation of the colon was poor. - Non-patent end-to-side colo-colonic anastomosis, characterized by stenosis and severe stenosis. Dilated. - Stool in the sigmoid colon and in the descending colon. - No specimens collected. Recommendation: - [facility] to [facility]. - Clear liquid diet. - Continue present medications. Bruce Brown, DO 10/05/2021 5:37:07 PM This report has been signed electronically. Note Initiated On: 10/05/2021 3:59 PM Number of Addenda: 0 I attest to the content of the Intraoperative Record and orders documented therein, exceptions below {[id number]}
--- NOTE | 2021-10-05 18:03 | Anesthesiology Progress Note ---
Date of Service October 05, 2021 Anesthesia Post Procedure Vital Signs Vital Signs: Temp Pulse Pulse Resp BP Pulse Ox 10/05/21 17:55 36.3 C L 63 20 173/82 H 94 10/05/21 17:45 72 19 163/105 H 95 10/05/21 17:39 36 C L 70 20 149/97 H 97 10/05/21 14:44 37.3 C 84 20 182/94 H 94 10/05/21 07:33 36.7 C 67 18 154/81 H 93 10/04/21 22:56 36.6 C 68 15 122/77 96 Pain Intensity Left Abdomen: Pain Intensity: 2 Transfer of Care Handoff Completed per policy Notes Mental Status: alert / awake / arousable and participated in evaluation Patient Amnestic to Procedure: Yes Nausea / Vomiting: adequately controlled Pain: adequately controlled Airway Patency, RR, SpO2: stable & adequate BP & HR: stable & adequate Hydration State: stable & adequate Anesthetic Complications: no major complications apparent
--- NOTE | 2021-10-05 18:21 | Fluoroscopy Report ---
FL pelvis 1-2V CLINICAL HISTORY: COLONIC STENT COMPARISON STUDY: Abdomen and pelvis CT 10/03/2021. FLUOROSCOPY TIME: 30 seconds. FINDINGS: A single fluoroscopic spot images of the pelvis demonstrates an endoscope at the rectum wit h balloon dilatation. IMPRESSION: Fluoroscopic assistance as described above. ACT 112: Negative or not required by law. Electronically signed by: Reggie Hernandez M.D. 10/05/2021 6:19 PM
[2021-10-06] MEDS: LACTATED RINGER'S 1,000 ML IV SCH (04:43)
--- NOTE | 2021-10-06 10:54 | Hospitalist Progress Note ---
Date of Service October 06, 2021 Assessment & Plan (1) Bowel obstruction: Plan: - Large bowel/Partial - Patient with h/o colon CA s/p resection and end-to-end anastomoses. - Noted to have transition point at the site of anastomoses on CT scan - sigmoidoscopy attempted 10/04 but unable to advance past the former surgical site d/t severe stenosis - colonoscopy with balloon dilation performed and successful on 10/05 - has been NPO but with successful balloon dilation, has since been started on clear liquids. Plan to further advance to low residue diet as tolerated with pl an to D/C tomorrow if continued favorable response. - Spoke with Dr. Bueno who was there for the c.scope dilation. Reports was partially successful and will need FU in 1 week to determine need for reattempt dilation in 1-2 weeks - GI and General Surgery on board-- appreciate assistance (2) Colitis: Plan: - suspect related to stercoral colitis 2/ to above. Stool PCR ordered but appears still uncollected - ESR elevated at 79 - GI on board-- appreciate assistance - No h/o IBD - empirically on Zosyn upfront. No evidence of infectious process; thus stopped on 10/05 (3) Hypertension: Plan: - Hold irbesartan while NPO (4) Colon cancer: Plan: s/p low anterior colon resection and chemotherapy which was completed August 30, 2021 Plan: advance diet as tolerated with hopeful plan tomorrow will D/W Dr. Bueno and Dr. Jackson. Admission and Anticipated Discharge Date Admission Date: October 03, 2021 Subjective Patient seen on daily rounds today. Clerk Supervisor services utilized. Had successful balloon dilation yesterday resulting in resolution of her large bowel obstruction secondary to stricture. She is currently tolerating clear liquid. She denies abdominal pain, nausea or vomiting. She is passing gas and having liquid BMs. Vocalizes no complaints or concerns. Review of Systems Review of Systems: All systems reviewed and are unremarkable except as noted in HPI and below Denies fevers, chills, headache, nasal congestion, sore throat, cough, chest pain, shortness of breath, palpitations, orthopnea, PND, abdominal pain, nausea, vomiting, diarrhea, constipation, dysuria, hematuria, frequency, back pain, joint pain or swelling, easy bruising or bleeding, skin lesions or rashes. Physical Exam Physical Exam: General: Resting comfortably in her hospital bed. She does not appear ill or toxic. NAD. HEENT: Head is AT/NC. Buccal mucosa is moist and pink Neck: No JVD. Negative hepatojugular reflex Cardiac: RRR 1/6 to 2/6 KRISS Lungs: CTA without W/R/R Abdomen: Normoactive X4. Abdomen is nondistended and soft throughout. Nontender in all quadrants today. Extremities: No peripheral clubbing cyanosis or edema Neuro: A&O X4. Cranial nerves II through XII are grossly intact. No focal neuro deficits Skin: No obvious skin lesions or rashes Psych: Appropriate affect. Pleasant and cooperative Results & Data Results & Data ([facility]) Vital Signs (Past 12 Hours) Vital Signs Temp Pulse Resp BP Pulse Ox 10/06/21 07:26 36.9 C 71 18 148/85 H 94 Laboratory Results 10/05/21 07:06 10/05/21 07:06 PG Care Time/CCT Total # of Minutes Spent Total Time Spent with Patient: Total time spent is greater than 50% in coordination of care (as documented) at patient's floor/unit and/or counseling patient: Coding Level of Care Code 57021 Subseq Hosp Care Lvl 2 Diagnoses Bowel obstruction K56.609 Colitis K52.9 Hypertension I10 Colon cancer C18.9
--- NOTE | 2021-10-06 11:30 | Surgery Progress Note ---
Date of Service October 06, 2021 Assessment & Plan (1) Colorectal anastomotic stricture: Plan: Discussed the case with primary service. Apparently she is feeling better. I am okay with her advancing her diet to a low residue diet. She should be on a high liquid intake diet low residue diet with stool softeners and mild laxatives such as Dulcolax or MiraLAX daily. She should follow-up with myself and Dr. Brown within a week. She will likely need repeat sigmoidoscopy with serial dilations for a while going forward. Dr. Mack is manufacturing storeperson for the weekend if any issues. (2) Colitis: (3) Abdominal pain: Admission and Anticipated Discharge Date Admission Date: October 03, 2021 Subjective Went to see patient in her room but she is not there. Results & Data ([facility]) Vital Signs (Past 12 Hours) Vital Signs Temp Pulse Resp BP Pulse Ox 10/06/21 07:26 36.9 C 71 18 148/85 H 94 PG Care Time/CCT Total # of Minutes Spent Total Time Spent with Patient: Total time spent is greater than 50% in coordination of care (as documented) at patient's floor/unit and/or counseling patient: Coding Level of Care Code 12984 Subseq Hosp Care Lvl 2 Diagnoses Colorectal anastomotic stricture K91.30 Colitis K52.9 Abdominal pain R10.32 Abdominal location: left lower quadrant (1) Abdominal pain Abdominal location: left lower quadrant Qualified Code(s): R10.32 - Left lower quadrant pain
[2021-10-06] MEDS: POLYETHYLENE (MIRALAX) 17 GM PACK PO SCH (13:00)
--- NOTE | 2021-10-06 15:21 | Gastroenterology Progress Note ---
Date of Service October 06, 2021 Assessment & Plan (1) Colorectal anastomotic stricture: Plan: Doing much better today Dilated anastomotic stricture with balloon dilation to [address] Bueno will re-address and may dilate early next week to ensure patency pr ior discharge Continue current therapy and supportive care. Admission and Anticipated Discharge Date Admission Date: October 03, 2021 Subjective She is feeling much better today. She states that she is moving her bowels and has passed gas repeatedly. She denies any abdominal pain, fevers, chills, nausea, vomiting, hematemesis, melena, or hematochezia. She is tolerating PO intake. Review of Systems Constitutional: as per Subjective / HPI Eyes: as per Subjective / HPI Ear, Nose, Mouth, Throat: as per Subjective / HPI Respiratory: as per Subjective / HPI Cardiovascular: as per Subjective / HPI Gastrointestinal: as per Subjective / HPI Musculoskeletal: as per Subjective / HPI Integumentary: as per Subjective / HPI Neurologic: as per Subjective / HPI Psychiatric: as per Subjective / HPI Endocrine: as per Subjective / HPI Hematologic / Lymphatic: as per Subjective / HPI Allergy / Immunological: as per Subjective / HPI Physical Exam Constitutional: well developed and + obese; no acute distress Eyes: + anicteric sclerae Neck: normal visual inspection Respiratory: normal respiratory effort, lungs clear to auscultation Cardiovascular: Rate/Rhythm: regular rate and regular rhythm Gastrointestinal (Abdomen): normal bowel sounds, soft, nontender, no hepatosplenomegaly Skin: no rashes, warm and dry Psychiatric: A+Ox3, euthymic affect Results & Data Results & Data ([facility]) Vital Signs (Past 12 Hours) Vital Signs Temp Pulse Resp BP Pulse Ox 10/06/21 07:26 36.9 C 71 18 148/85 H 94 PG Care Time/CCT Total # of Minutes Spent Total Time Spent with Patient: Total time spent is greater than 50% in coordination of care (as documented) at patient's floor/unit and/or counseling patient: Coding Level of Care Code 59311 Subseq Hosp Care Lvl 3 Diagnoses Colorectal anastomotic stricture K91.30
[2021-10-06] MEDS: DOCUSATE SODIUM 100 MG CAP PO SCH (21:33)
--- NOTE | 2021-10-07 05:23 | Surgery Progress Note ---
Date of Service October 07, 2021 Assessment & Plan (1) Colorectal anastomotic stricture: Plan: Patient is status post colonoscopy with dilation of colocolonic anastomosis on 10/05/2021. Proceed as follows: Continue diet as tolerated Continue bowel regimen (she is receiving MiraLAX and Colace) Patient is to follow-up with Dr. Brown of Dr. Bueno for discussion about further dilations which may be required Admission and Anticipated Discharge Date Admission Date: October 03, 2021 Supervising Physician Co-Signing Physician Notes Patient seen and examined, agree with above. History of LAR admitted with bowel obstruction secondary to stricture at colorectal anastomosis, post procedure day #1 balloon dilation. She is feeling much better and tolerating diet. She is passing gas. On exam abdomen soft, nondistended nontender. Continue low fiber/low residual diet, continue stool softeners. She will need follow-up with Dr. Brown and Dr. Bueno within the next week or so. She will likely need serial dilations of the stricture. Okay to discharge from general surgery standpoint. Subjective Patient denies abdominal pain. Denies nausea vomiting. No fevers, shakes, chills reported. Patient says her bowels are moving without difficulty. Physical Exam Gastrointestinal (Abdomen): Soft, nontender, nondistended Results & Data ([facility]) Vital Signs (Past 12 Hours) Vital Signs Temp Pulse Resp BP Pulse Ox 10/06/21 23:15 36.9 C 68 18 138/87 93 PG Care Time/CCT Total # of Minutes Spent Total Time Spent with Patient: Total time spent is greater than 50% in coordination of care (as documented) at patient's floor/unit and/or counseling patient: Coding Level of Care Code 99895 Subseq Hosp Care Lvl 1 Diagnoses Colorectal anastomotic stricture K91.30
[2021-10-07 08:26] LABS: Hematocrit (blood only) 35.1 % (37-47); Hemoglobin 11.4 g/dL (12.0-16.0); Mean Corpuscular Hemoglobin 27.4 pg (25-34); Mean Corpuscular Hgb Conc 32.5 g/dL (32-36); Mean Corpuscular Volume 84.4 fL (80-100); Mean Platelet Volume 8.7 fL (7.4-10.4); Platelet Count 149 K/uL (130-400); RDW Coefficient of Variation 14.9 % (11.5-14.5); RDW Standard Deviation 46.1 fL (36.4-46.3); Red Blood Count 4.16 M/uL (4.2-5.4); White Blood Count 4.12 K/uL (4.8-10.8)
[2021-10-07 08:44] LABS: BUN Creatinine Ratio 10.7 (10-20); Calcium 8.6 mg/dl (8.5-10.1); Creatinine Clr Calc Pharmacy 102.8 ml/min; Est GFR (African American) 114.2 ml/min; Est GFR (Non-African American) 98.5 ml/min; Magnesium 2.1 mg/dl (1.7-2.4); Potassium 3.8 mmol/L (3.5-5.1)
[2021-10-07] MEDS: DOCUSATE SODIUM 100 MG CAP PO SCH (09:07)
[2021-10-07] MEDS: POLYETHYLENE (MIRALAX) 17 GM PACK PO SCH (09:07)
--- NOTE | 2021-10-07 11:43 | Discharge Summary ---
Date of Service October 07, 2021 Admission HPI Per Admitting Provider Jenna Tolbert is a 66 year old female with significant history of colon cancer s/p open low anterior colon resection in December 2020 who presents to the ER with abdominal pain. Patient is Argentine speaking and history taken using Argentine child care director via iPad. She reports completing chemotherapy on August 30 - during this she did very well without nausea, vomiting or diarrhea. Over the last 2 days she started having severe spasms in her abdomen (mainly left sided). Pain became worse today therefore she decided to come to the ER. No significant bowel movement in the last 3 days - just mild very liquid stool. Last night and this morning she had vomiting episode. No fever or chills. No chest pain or shortness of breath. In the ER CT A/P was concerning for partial bowel obstruction at her anastomosis site as well as colitis. She has been seen by surgery and recommend GI consult for consideration of colonoscopy. She was referred to medicine for admission and ongoing management of colon mass. Principal Diagnosis 1. Large Bowel Obstruction 2. Colorectal anastomotic stricture- s/p balloon dilation 3. Stercoral Colitis- (inflammation of the bowel) secondary to severe fecal retention Discharge Exam General: Resting comfortably in her hospital bed. She does not appear ill or toxic. NAD. HEENT: Head is AT/NC. Buccal mucosa is moist and pink Neck: No JVD. Negative hepatojugular reflex Cardiac: RRR 1/6 to 2/6 KRISS Lungs: CTA without W/R/R Abdomen: Normoactive X4. Abdomen is nondistended and soft throughout. Nontender in all quadrants today. Extremities: No peripheral clubbing cyanosis or edema Neuro: A&O X4. Cranial nerves II through XII are grossly intact. No focal neuro deficits Skin: No obvious skin lesions or rashes Psych: Appropriate affect. Pleasant and cooperative Discharge Data Allergies Allergy/AdvReac Type Severity Reaction Status Date / Time alendronate sodium AdvReac Mild GI Verified 06/14/21 11:24 [From Fosamax] Upset/Myalgia Consultations 10/03/21 14:34 ED Decision to Admit Stat 10/03/21 16:08 Consult Gastroenterology Routine (1) Colorectal anastomotic stricture: Plan: Doing much better today Dilated anastomotic stricture with balloon dilation to [address] Bueno will re-address and may dilate early next week to ensure patency prior discharge Continue current therapy and supportive care. Consult General Surgery Routine (1) Colorectal anastomotic stricture: Plan: Discussed the case with primary service. Apparently she is feeling better. I am okay with her advancing her diet to a low residue diet. She should be on a high liquid intake diet low residue diet with stool softeners and mild laxatives such as Dulcolax or MiraLAX daily. She should follow-up with myself and Dr. Brown within a week. She will likely need repeat sigmoidoscopy with serial dilations for a while going forward. Dr. Mack is station chief for the weekend if any issues. (2) Colitis: (3) Abdominal pain: Procedures Performed Operation Date: 10/04/21 16:45 Actual Procedures p Flexible Sigmoidoscopy - Bruce DengOren Brown, DO Impression: - Non-patent end-to-side colo-colonic anastomosis, characterized by severe stenosis. - No specimens collected. Recommendation: - [facility]. - NPO. - Continue present medications. Bruce DengOren Brown, DO Operation Date: 10/05/21 09:10 Actual Procedures p Colonoscopy, with dilation, extensive exam of descending colon - Bruce Brown, DO Impression: - Preparation of the colon was poor. - Non-patent end-to-side colo-colonic anastomosis, characterized by stenosis and severe stenosis. Dilated. - Stool in the sigmoid colon and in the descending colon. - No specimens collected. Recommendation: - Return patient to [facility] for [facility] care. - Clear liquid diet. - Continue present medications. Ordered Studies 10/03/21 11:33 CT abd pelvis IV con only Stat IMPRESSION: 1. Mild to moderate colonic wall thickening involving the majority the transverse colon, descending colon, sigmoid colon, and rectum with mild pericolonic fat stranding. This is consistent with a nonspecific colitis but favors an infectious or inflammatory process. There is also a large amount well- formed stool within the majority of the colon. A stercoral colitis is considered less likely but not entirely excluded. 2. The majority of the colon is distended and filled with a large amount of stool. There is distal tapering of the descending colon and sigmoid colon to the level of the rectosigmoid anastomosis which demonstrates focal narrowing. Therefore, this could represent a partial large bowel obstruction with the transition point at the rectosigmoid anastomosis. 3. Cholelithiasis and a few scattered gallbladder wall calcifications at the fundus. This remains unchanged. 4. Stable 18 mm left breast nodule. 5. Additional findings as described above. 10/05/21 17:00 FL pelvis 1-2V Routine Hospital Course (1) Bowel obstruction: - Large bowel/Partial - Patient with h/o colon CA s/p resection and end-to-end anastomoses. - Noted to have transition point at the site of anastomoses on CT scan - sigmoidoscopy attempted 10/04 but unable to advance past the former surgical site d/t severe stenosis - colonoscopy with balloon dilation performed and successful on 10/05 - had been NPO upfront but with successful balloon dilation oral intake initiated (clear liquids with advancement to low fiber as tolerated) - patient showing favorable response. No longer with abdominal pain, N/V. Is passing gas and moving her bowels. Tolerating oral intake - Spoke with Dr. Bueno who was there for the c.scope dilation. Reports was partially successful and will need FU in 1 week to determine need for reattempt dilation in 1-2 weeks - GI and General Surgery on board-- appreciate assistance (2) Colitis: - suspect related to stercoral colitis 2/ to above. Stool PCR ordered but appears still uncollected - ESR elevated at 79 - GI on board-- appreciate assistance - No h/o IBD - empirically on Zosyn upfront. No evidence of infectious process; thus stopped on 10/05 (3) Hypertension: - Hold irbesartan while NPO (4) Colon cancer: s/p low anterior colon resection and chemotherapy which was completed August 30, 2021 D/C to home low fiber diet and continued bowel regimen (Miralax and Colace). Push fluids follow up with GI/GS 1 week to determine need for repeat dilation(s) moving forward Total Time Total Time Spent Total Time Spent (In Minutes): 60 min including time spent with patient, utilization of vp clinical research, answering all questions, D/W attending provider and preparation of documentation. Did attempt to print Krames form in [place] but no longer an option. Also, tried to copy/paste her discharge instructions into child care director but unsuccessful Discharge Plan Discharge Items Patient Disposition: Home - Home Health Services Reason For Visit: BOWEL OBSTRUCTION, COLITIS Discharge Diagnosis: 1. Large Bowel Obstruction 2. Colonic Stenosis- status post balloon dilation 3. Colitis- (inflammation of the bowel) secondary to severe fecal retention Activity: Resume your previous activity Non-emergency contact: Primary Care Provider, Surgeon and Gate Keeper Call non-emergency contact if: you have any medication questions Follow-up/Referrals: Bruce Brown DO [Physician] - Rosalba Mcnulty PA-C [Primary Care Provider] - Jose Bueno DO [Surgeon] - Diet: Low Fiber and Other - See Diet Comment Diet Comment: increase fluids. Low fiber diet Addtl Attending Provider Instructions: You were hospitalized with abdominal pain and found to have an obstruction in your large bowel secondary to a tightening/narrowing at your prior surgical site. A colonoscopy was performed and this narrowing was opened by utilization of a balloon You did have inflammation of your bowel and this region secondary to significant fecal impaction or stool lingering in the bowel To help keep the bowels moving, you should remain on MiraLAX once a day (which is a laxative) in addition to Colace twice a day (which is a stool softener). You should avoid high-fiber foods. High-fiber foods decrease the mobility of stool through the GI tract which can increase your risk of another obstruction. In addition to avoiding high-fiber foods, you want to drink plenty of water to help keep your stool soft and your bowels moving. You need to follow-up with Dr. Bueno and Dr. Brown in 1 week as you may need additional colonoscopy with dilation in 1 to 2 weeks. Please return to the emergency department for any new or worsening symptoms Follow-up with your PCP within 7 to 10 days Pending Studies at Discharge: No Stand-Alone Forms: My [facility] Medications and DC Order Prescriptions: New docusate sodium 100 mg Capsule 100 mg PO BID Qty: 60 RF: 0 polyethylene glycol 3350 [Miralax] 17 gram Powder In Packet 17 g PO DAILY Qty: 30 RF: 0 Continued cholecalciferol (vitamin D3) 50 mcg (2,000 unit) tablet 50 mcg PO QAM RF: 0 irbesartan 150 mg tablet 150 mg PO QAM 30 Days Qty: 30 RF: 11 aspirin 81 mg Tablet,Delayed Release (Dr/Ec) 81 mg PO QAM Qty: 30 RF: 0 Discharge Orders: Discharge Order (Routine); Ordered 10/07/21 Ordered By: Heidi Billings/Other Patient Handouts: Low-Fiber Diet Admission Data Admit Date/Time: 10/03/21 15:02 Attending Provider: Cleve Barba Admit Provider: Lico Preston Primary Care Provider: Rosalba Mcnulty Other Providers: Will Jackson ; Lico Preston ; Bruce Brown Other Interventions: Discharge Summary Assessment (RN) Last Done: 10/07/21 11:12 Coding Level of Care Code D/C DAY MANAGEMENT >30 MINS Diagnoses Bowel obstruction K56.609 Colitis K52.9 Hypertension I10 Colon cancer C18.9
== END 2021-10-07 13:55 | disposition home health service (06) | DRG 395 ==
LOC: ED 10:59 → SUATTDRO 15:02 → 3N 15:02

== ENCOUNTER 2022-02-06 15:00 | Inpatient (IN) ==
[2022-02-06 15:52] LABS: Basophils # (auto) 0.02 K/uL (0-0.2); Basophils % (auto) 0.3 %; Eosinophils # (auto) 0.04 K/uL (0-0.50); Eosinophils % (auto) 0.5 %; Hematocrit (blood only) 44.6 % (34.1-44.9); Hemoglobin 15.4 g/dl (12.0-16.0); Immature Granulocytes # (auto) 0.02 K/uL (0.00-0.02); Immature Granulocytes % (auto) 0.3 %; Lymphocytes # (auto) 1.97 K/uL (1.2-3.4); Lymphocytes % (auto) 24.8 %; Mean Corpuscular Hemoglobin 29.2 pg (25.0-34.0); Mean Corpuscular Hgb Conc 34.5 g/dL (32.0-36.0); Mean Corpuscular Volume 84.6 fL (80.0-100.0); Mean Platelet Volume 8.7 fL (9.4-12.3); Monocytes # (auto) 0.42 K/uL (0.24-0.82); Monocytes % (auto) 5.3 %; Neutrophils # (auto) 5.46 K/uL (1.4-6.5); Neutrophils % (auto) 68.8 %; Platelet Count 204 K/uL (130-400); Red Blood Count 5.27 M/uL (3.93-5.22); White Blood Count 7.93 K/ul (4.8-10.8)
[2022-02-06 16:26] LABS: Albumin Globulin Ratio 1.2 (0.9-2); Albumin Level 4.1 gm/dl (3.4-5.0); BUN Creatinine Ratio 19.1 (10-20); Bilirubin,Total 1.1 mg/dl (0.2-1.0); Calcium 9.4 mg/dl (8.5-10.1); Creatinine Clr Calc Pharmacy 87.8 ml/min; Est GFR (African American) 107.1 ml/min; Est GFR (Non-African American) 92.4 ml/min; Globulin 3.5 gm/dl (2.5-4.0); Potassium 3.7 mmol/L (3.5-5.1); Total Protein 7.6 gm/dl (6.0-8.3)
[2022-02-06] MEDS ORDERED: ONDANSETRON INJ 2 MG/ML 2 ML VIAL IV STA (17:25)
[2022-02-06] MEDS ORDERED: SODIUM CHLORIDE 0.9% 1000ML 1,000 ML IV STA (17:25)
--- NOTE | 2022-02-06 17:28 | Emergency Department Note ---
Impression & Plan Bowel obstruction, Constipation, Abdominal pain, left lower quadrant ED Provider Note NAME: NEVIN CASAS AGE: 66 SEX: F : 1955 ARRIVES VIA: Walk-In INFORMANT: Patient, ED PROVIDER(S): Leonardo Rosa DO CHIEF COMPLAINT: Abdominal pain HPI: The patient is a 66-year-old female who presented to the emergency department for an evaluation of lower abdominal pain. The patient's been experiencing abdominal pain since yesterday. She does have a history of a colonoscopy over the last month or 2. She states she has a history of bowel obstruction because of a previous tumor that was resected. The patient's history was obtained using the medical interpreter. She notices nausea but no vomiting. She has had no fever. She denies having any decreased urine output. She denies having any back pain or chest pain. She has had no urinary frequency. She is often seen by her family doctor but presented to the emergency department because pain became worsened. ROS: See above HPI for pertinent positives & negatives. A total of 10 systems reviewed and were otherwise negative. PAST MEDICAL HISTORY: See Below PAST SURGICAL HISTORY: See Below FAMILY HISTORY: See Below SOCIAL HISTORY: See Below HOME MEDICATIONS: See Below ALLERGIES: See Below VITALS: See Below PHYSICAL EXAMINATION: GENERAL: The patient is awake and alert. The patient is very anxious appearing. EYES: The conjunctivae are clear. The pupils are round and reactive. EARS, NOSE, MOUTH AND THROAT: The nose is without any evidence of any deformity. NECK: The neck is nontender and supple. RESPIRATORY: Normal respiratory effort is noted there is no evidence of wheezing rhonchi or rales CARDIOVASCULAR: Regular rate and rhythm noted there no murmurs rubs or gallops normal S1 normal S2. GASTROINTESTINAL: The abdomen is soft and mildly distended. There is guarding in the left lower quadrant. MUSCULOSKELETAL/EXTREMITIES: There is no evidence of gross deformity full range of motion is noted in the hips and shoulders. SKIN: Pedal edema was noted bilaterally. NEUROLOGIC: Patient is awake alert and oriented x3. MEDICAL DECISION MAKING: The patient is a 66-year-old female who presented to the emergency department for an evaluation of abdominal pain. The patient has a history of bowel obstruction in the past. She has a history of colonic stricture. The patient was treated with IV fluids and IV pain medication in the emergency department. I discussed the patient's laboratory and radiographic studies with her. She was found to have signs of an early bowel obstruction. I discussed her condition with the on-call [facility] hospitalist. They have agreed to evaluate the patient in the emergency department for further management and disposition. Triage Nursing notes reviewed. Prior medical records reviewed Vital Signs: reviewed and remarkable for elevated blood pressure. Differential diagnosis: Etiologies such as appendicitis, diverticulitis, obstruction, inflammatory bowel disease, renal colic, PUD, biliary pathology, pancreatitis, mesenteric ischemia, aortic pathology, infections, genitourinary, UTI, perforated viscus, as well as others were entertained. ER treatment provided: See below Diagnostics interpreted by me: ECG: none Cardiac Monitoring: An order was placed for continuous cardiac monitoring. The monitor shows a rate of 75 bpm with sinus rhythm. Laboratory studies: As stated above and show below. Imaging studies: See below Consultation(s): I discussed this case with Dr. Jackson [facility]. Past Med/Surg History Medical History Anemia HX Colon cancer HX 2020 - SURGERY, HX CHEMO Degenerative disc disease lumbar History of COVID-19 Dx 09/2020 > symptoms at time of: fatigue, poor appetite, generalized weakness, body aches > resolved Hypertension Obesity OP (osteoporosis) Rectal mass Rectal stent placed during colonoscopy (hx) Surgical History History of colon resection Open lower anterior colon resection (01/26/2021): Grade view 1, Jackson #2, ETT 7.5 at [facility] ( + TAP block) History of colonoscopy History of left hip replacement History of total shoulder replacement Right reverse TSA: 05/26/18: Grade view 1, MAC#3, ETT 7.5 at [facility] Port-A-Cath in place (03/23/21) Insertion of Access Port with Fluoroscopy Dr. 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 How many Children do You have: 3 Feels Safe at Home: Yes Assistive Devices: Glasses Allergies Allergies Allergy/AdvReac Type Severity Reaction Status Date / Time alendronate sodium AdvReac Unknown GI Verified 02/06/22 18:29 [From Fosamax] Upset/Myalgia Home Meds Home Medications Medication Instructions Recorded Confirmed cholecalciferol (vitamin D3) 50 50 mcg PO QAM 06/16/21 02/06/22 mcg (2,000 unit) tablet aspirin 81 mg chewable tablet 81 mg PO QAM 10/18/21 02/06/22 pyridoxine (vitamin B6) 25 mg 25 mg PO QAM 10/18/21 02/06/22 tablet polyethylene glycol 3350 17 gram 17 g PO QAM 10/23/21 02/06/22 oral powder packet (Miralax) Previous Rx's Medication Instructions Recorded irbesartan 150 mg tablet 150 mg PO QAM 30 days #30 tabs 06/14/21 docusate sodium 100 mg capsule 100 mg PO BID #60 caps 10/07/21 furosemide 20 mg tablet 20 mg PO Q OTHER DAY PRN edema #30 01/11/22 tabs Results & Data (ED) Vital Signs Vital Signs - 24 hr 02/06/22 15:05 02/06/22 17:40 02/06/22 17:46 Temperature 36.6 C Temperature Source Temporal Artery Scan Pulse Rate 98 H 98 H Pulse Rate [Apical] 85 Pulse Rhythm Regular Pulse Rhythm [Apical] Regular Pulse Strength [Apical] Respiratory Rate 18 18 18 Respiratory Effort / Characteristics Non-Labored Non-Labored Respiratory Depth Normal Normal Respiratory Pattern Regular Blood Pressure 148/102 H Blood Pressure [Right Arm] 177/106 H Blood Pressure Mean 117 Blood Pressure Mean [Right Arm] 129 Blood Pressure Position [Right Arm] Pulse Oximetry 95 95 91 Oxygen Delivery Method Room Air Room Air Room Air Sepsis Recent Fever Within 48 Hours No Sepsis New/Unexplained Change in Mental Status No Sepsis Action Taken by Nursing No Action Required 02/06/22 19:00 02/06/22 22:00 02/06/22 22:18 Temperature Temperature Source Pulse Rate 75 Pulse Rate [Apical] 74 75 Pulse Rhythm Pulse Rhythm [Apical] Regular Regular Pulse Strength [Apical] Normal Normal Respiratory Rate 18 18 18 Respiratory Effort / Characteristics Non-Labored Spontaneous Non-Labored Spontaneous Respiratory Depth Normal Normal Respiratory Pattern Regular Regular Blood Pressure 151/91 H Blood Pressure [Right Arm] 177/106 H 151/91 H Blood Pressure Mean Blood Pressure Mean [Right Arm] 129 111 Blood Pressure Position [Right Arm] Semi-fowlers Lying Pulse Oximetry 94 94 94 Oxygen Delivery Method Room Air Room Air Room Air Sepsis Recent Fever Within 48 Hours Sepsis New/Unexplained Change in Mental Status Sepsis Action Taken by Jail Medications Current Medication List: was personally reviewed by me Laboratory Data Attestation: I reviewed the patient's lab results. Result diagrams: 02/06/22 15:23 02/06/22 15:23 Lab Results 02/06/22 02/06/22 02/06/22 Range/Units 15:23 15:23 15:30 WBC 7.93 (4.8-10.8) K/ul RBC 5.27 H (3.93-5.22) M/uL Hgb 15.4 (12.0-16.0) g/dl Hct 44.6 (34.1-44.9) % MCV 84.6 (80.0-100.0) fL MCH 29.2 (25.0-34.0) pg MCHC 34.5 (32.0-36.0) g/dL RDW Std Deviation 40.0 (36.4-46.3) fL RDW Coeff of Deidra 13.0 (11.5-14.5) % Plt Count 204 (130-400) K/uL MPV 8.7 L (9.4-12.3) fL Immature Gran % (Auto) 0.3 % Neut % (Auto) 68.8 % Lymph % (Auto) 24.8 % [place] % (Auto) 5.3 % Eos % (Auto) 0.5 % Baso % (Auto) 0.3 % Neut # (Auto) 5.46 (1.4-6.5) K/uL Lymph # (Auto) 1.97 (1.2-3.4) K/uL [place] # (Auto) 0.42 (0.24-0.82) K/uL Eos # (Auto) 0.04 (0-0.50) K/uL Baso # (Auto) 0.02 (0-0.2) K/uL Immature Gran # (Auto) 0.02 (0.00-0.02) K/uL Sodium 138 (136-145) mmol/L Potassium 3.7 (3.5-5.1) mmol/L Chloride 104 (98-107) mmol/L Carbon Dioxide 22 (21-32) mmol/L Anion Gap 12 H (3-11) BUN 13 (6-23) mg/dl Creatinine 0.68 (0.6-1.2) mg/dl Est Cr Clr Drug Dosing 87.8 ml/min Est GFR ( Amer) 107.1 ml/min Est GFR (Non-Af Amer) 92.4 ml/min BUN/Creatinine Ratio 19.1 (10-20) Glucose 111 H (70-99(Fasting)) mg/dl Calcium 9.4 (8.5-10.1) mg/dl Total Bilirubin 1.1 H (0.2-1.0) mg/dl AST 22 (13-39) U/L ALT 16 (7-52) U/L Alkaline Phosphatase 132 H (34-104) U/L Total Protein 7.6 (6.0-8.3) gm/dl Albumin 4.1 (3.4-5.0) gm/dl Globulin 3.5 (2.5-4.0) gm/dl Albumin/Globulin Ratio 1.2 (0.9-2) Lipase 6 L (11-82) U/L Urine Color Dark Yellow Urine Appearance Clear (Clear) Urine pH 5.5 (4.5-7.5) Ur Specific [place] 1.021 (1.000-1.030) Urine Protein Negative (Negative) Urine Glucose (UA) Negative (Negative) Urine Ketones Trace H (Negative) Urine Blood Negative (Negative) Urine Nitrite Negative (Negative) Urine Bilirubin Negative (Negative) Urine Urobilinogen Negative (Negative) Ur Leukocyte Esterase 1+ H (Negative) Urine WBC (Auto) 1-5 (0-5) /hpf Urine RBC (Auto) 0-4 (0-4) /hpf U Hyaline Cast (Auto) 10-30 H (0-5) /lpf U Epithel Cells (Auto) >30 H (0-5) /lpf Urine Bacteria (Auto) Negative (Negative) SARS-CoV-2, RNA, NAAT (NEGATIVE) 02/06/22 Range/Units 17:40 WBC (4.8-10.8) K/ul RBC (3.93-5.22) M/uL Hgb (12.0-16.0) g/dl Hct (34.1-44.9) % MCV (80.0-100.0) fL MCH (25.0-34.0) pg MCHC (32.0-36.0) g/dL RDW Std Deviation (36.4-46.3) fL RDW Coeff of Deidra (11.5-14.5) % Plt Count (130-400) K/uL MPV (9.4-12.3) fL Immature Gran % (Auto) % Neut % (Auto) % Lymph % (Auto) % [place] % (Auto) % Eos % (Auto) % Baso % (Auto) % Neut # (Auto) (1.4-6.5) K/uL Lymph # (Auto) (1.2-3.4) K/uL [place] # (Auto) (0.24-0.82) K/uL Eos # (Auto) (0-0.50) K/uL Baso # (Auto) (0-0.2) K/uL Immature Gran # (Auto) (0.00-0.02) K/uL Sodium (136-145) mmol/L Potassium (3.5-5.1) mmol/L Chloride (98-107) mmol/L Carbon Dioxide (21-32) mmol/L Anion Gap (3-11) BUN (6-23) mg/dl Creatinine (0.6-1.2) mg/dl Est Cr Clr Drug Dosing ml/min Est GFR ( Amer) ml/min Est GFR (Non-Af Amer) ml/min BUN/Creatinine Ratio (10-20) Glucose (70-99(Fasting)) mg/dl Calcium (8.5-10.1) mg/dl Total Bilirubin (0.2-1.0) mg/dl AST (13-39) U/L ALT (7-52) U/L Alkaline Phosphatase (34-104) U/L Total Protein (6.0-8.3) gm/dl Albumin (3.4-5.0) gm/dl Globulin (2.5-4.0) gm/dl Albumin/Globulin Ratio (0.9-2) Lipase (11-82) U/L Urine Color Urine Appearance (Clear) Urine pH (4.5-7.5) Ur Specific [place] (1.000-1.030) Urine Protein (Negative) Urine Glucose (UA) (Negative) Urine Ketones (Negative) Urine Blood (Negative) Urine Nitrite (Negative) Urine Bilirubin (Negative) Urine Urobilinogen (Negative) Ur Leukocyte Esterase (Negative) Urine WBC (Auto) (0-5) /hpf Urine RBC (Auto) (0-4) /hpf U Hyaline Cast (Auto) (0-5) /lpf U Epithel Cells (Auto) (0-5) /lpf Urine Bacteria (Auto) (Negative) SARS-CoV-2, RNA, NAAT NEGATIVE (NEGATIVE) Administered Medications Morphine Sulfate (Morphine Sulfate 4 Mg/Ml 1 Ml Carp\Vial) 4 mg IV Q15M PRN PRN Reason: Pain Stop: 02/20/22 17:24 Last Admin: 02/06/22 20:56 Dose: 4 mg Documented By: Admin: 02/06/22 17:40 Dose: 4 mg Documented By: PAUL Discontinued Medications Sodium Chloride (Nss 1000ml) 1,000 mls @ 999 mls/hr IV .Q1H1M STA Stop: 02/06/22 18:25 Last Infusion: 02/06/22 18:55 Dose: 0 mls/hr Documented By: Admin: 02/06/22 17:40 Dose: 999 mls/hr Documented By: PAUL Ioversol (Optiray 320 100ml) 90 ml IV ONCE ONE Stop: 02/06/22 18:24 Last Admin: 02/06/22 18:25 Dose: 90 ml Documented By: KARY Ondansetron HCl (Ondansetron Inj 2 Mg/Ml 2 Ml Vial) 4 mg IV NOW STA Stop: 02/06/22 17:26 Last Admin: 02/06/22 17:40 Dose: 4 mg Documented By: PAUL Imaging Data Radiologist's Impression: Abdomen/Pelvis CT 02/06/22 17:25 CT OF THE ABDOMEN AND PELVIS WITH CONTRAST CLINICAL HISTORY: Lower abdominal pain. COMPARISON STUDY: CT of the abdomen and pelvis October 03, 2021. TECHNIQUE: Following IV administration of 90 mL of Optiray, axial images of the abdomen and pelvis were obtained from the lung bases to the proximal femurs. Images were reviewed in the axial, sagittal, and coronal planes. IV contrast was administered without complication. Automated exposure control was utilized for the study. A dose lowering technique was utilized adhering to the principles of ALARA. CT DOSE: 878.12 mGy.cm FINDINGS: No pneumatosis, free air or portal venous gas is present. Exam is mildly compromised by motion artifact. There are gallstones within the gallbladder. There is no evidence for acute cholecystitis. No biliary or pancreatic ductal dilatation is present. Spleen, adrenal glands and kidneys are unremarkable with the exception of a 1.4 cm cyst within lower pole of the right kidney. The appendix is normal. No enlarged abdominal or pelvic lymph nodes are present. Postoperative findings consistent with rectosigmoid resection are noted . There is mild wall thickening of the distal descending colon with mild pericolonic stranding. A moderate to large amount of stool within the colon is noted. The colon is mildly distended. These findings have improved when compared to exam of October 03, 2021. Ahaustral appearance of the descending colon is noted. No extraluminal gas is present. No fluid collection is suggest an abscess. Left hip arthroplasty is noted. Major vasculature is patent. IMPRESSION: 1. Status post rectosigmoid resection. Mild wall thickening and pericolonic stranding of the descending colon. This represents a nonspecific colitis. Findin gs decreased when compared to CT of October 03, 2021. Therefore, this could reflect recurrent or residual colitis. 2. Moderate to large amount of stool within the colon with moderate colonic dilatation with possible caliber change at the level the rectosigmoid anastomosis. A partial colonic obstruction would be difficult to exclude. 3. Cholelithiasis. ACT 112: Negative or not required by law. Electronically signed by: Hakeem Daigle M.D. 02/06/2022 6:47 PM Discharge Plan Visit Data Chief Complaint: Abdominal Pain Stated Complaint: ABDOMINAL PAIN ED Provider: Leonardo Rosa Discharge Problem: Bowel obstruction, Constipation, Abdominal pain, left lower quadrant Patient Disposition: Admitted As Inpatient Discharge Instructions Interventions: ED Discharge Assessment Last Done: 02/06/22 22:18 Forms Stand Alone Forms: My [facility] Prescriptions Prescriptions: No Action cholecalciferol (vitamin D3) 50 mcg (2,000 unit) tablet 50 mcg PO QAM pyridoxine (vitamin B6) 25 mg tablet 25 mg PO QAM aspirin 81 mg tablet,chewable 81 mg PO QAM irbesartan 150 mg tablet 150 mg PO QAM 30 Days Qty: 30 11RF furosemide 20 mg tablet 20 mg PO Q OTHER DAY PRN (Reason: edema) Qty: 30 2RF polyethylene glycol 3350 [Miralax] 17 gram powder in packet 17 g PO QAM Rx Instructions: mix with 8 oz liquid of your choice docusate sodium 100 mg Capsule 100 mg PO BID Qty: 60 0RF Referrals Referrals: PCP,NO [Primary Care Provider] - : Bowel obstruction Qualifiers: Intestinal obstruction type: unspecified Intestinal obstruction extent: partial Qualified Code(s): K56.600 - Partial intestinal obstruction, unspecified as to cause Constipation Qualifiers: Constipation type: unspecified constipation type Qualified Code(s): K59.00 - Constipation, unspecified
[2022-02-06] MEDS: MoRPHine SULFATE 4 MG/ML 1 ML CARP\\VIAL IV PRN ×2 (17:40→20:56)
[2022-02-06] MEDS ORDERED: OPTIRAY 320 100ml IV ONE (18:23)
--- NOTE | 2022-02-06 18:50 | CT Scan Report ---
CT OF THE ABDOMEN AND PELVIS WITH CONTRAST CLINICAL HISTORY: Lower abdominal pain. COMPARISON STUDY: CT of the abdomen and pelvis October 03, 2021. TECHNIQUE: Following IV administration of 90 mL of Optiray, axial images of the abdomen and pelvis we re obtained from the lung bases to the proximal femurs. Images were reviewed in the axial, sagittal, and coronal planes. IV contrast was administered without complication. Automated exposure control wa s utilized for the study. A dose lowering technique was utilized adhering to the principles of ALARA . CT DOSE: 878.12 mGy.cm FINDINGS: No pneumatosis, free air or portal venous gas is present. Exam is mildly compromised by mot ion artifact. There are gallstones within the gallbladder. There is no evidence for acute cholecystit is. No biliary or pancreatic ductal dilatation is present. Spleen, adrenal glands and kidneys are unr emarkable with the exception of a 1.4 cm cyst within lower pole of the right kidney. The appendix is normal. No enlarged abdominal or pelvic lymph nodes are present. Postoperative findings consistent wi th rectosigmoid resection are noted. There is mild wall thickening of the distal descending colon wit h mild pericolonic stranding. A moderate to large amount of stool within the colon is noted. The colo n is mildly distended. These findings have improved when compared to exam of October 03, 2021. Ahaustral appearance of the descending colon is noted. No extraluminal gas is present. No fluid collection is suggest an abscess. Left hip arthroplasty is noted. Major vasculature is patent. IMPRESSION: 1. Status post rectosigmoid resection. Mild wall thickening and pericolonic stranding of the descendi ng colon. This represents a nonspecific colitis. Findings decreased when compared to CT of October 03 022. Therefore, this could reflect recurrent or residual colitis. 2. Moderate to large amount of stool within the colon with moderate colonic dilatation with possible caliber change at the level the rectosigmoid anastomosis. A partial colonic obstruction would be diff icult to exclude. 3. Cholelithiasis. ACT 112: Negative or not required by law. Electronically signed by: Hakeem Daigle M.D. 02/06/2022 6:47 PM
--- NOTE | 2022-02-06 19:58 | History & Physical Report ---
Date of Service February 06, 2022 Assessment & Plan (1) Bowel obstruction: Plan: Has had prior LBOs at the site of her anastomosis. Underwent several dilations with Dr. Brown and Dr. Reinoso. - NPO - Pain control - GI consulted for consideration of another dilation - Fleet enema to see if we could improve LBO (2) Hypertension: Plan: - Continue irbesartan (3) DVT prophylaxis: Plan: SCDs History of Present Illness Primary Care Provider: NO PCP 66yo F w/ hx of colon cx s/p resection and chemotherapy presents with likely large bowel obstruction. Has a stricture in the area of the anastomosis and has several episodes of large bowel obstruction. Was in her normal state of health until Saturday when she started to have mild, lower abdominal pain. Last BM was on Saturday and was very small. Prior to that, had been having 1-2 BMs/day which she reports were soft, non-bloody and non- melenic. Pain worsened over the course of Saturday through today and she presented to the ER. CT a/p in the ER shows improving colitis, but possible large bowel obstruction. Allergies Allergy/AdvReac Type Severity Reaction Status Date / Time alendronate sodium AdvReac Unknown GI Verified 02/06/22 18:29 [From Fosamax] Upset/Myalgia Home Medications Medication Instructions Recorded Confirmed Type irbesartan 150 mg tablet 150 mg PO QAM 30 days #30 tabs 06/14/21 02/06/22 Rx cholecalciferol (vitamin D3) 50 50 mcg PO QAM 06/16/21 02/06/22 History mcg (2,000 unit) tablet docusate sodium 100 mg capsule 100 mg PO BID #60 caps 10/07/21 02/06/22 Rx aspirin 81 mg chewable tablet 81 mg PO QAM 10/18/21 02/06/22 History pyridoxine (vitamin B6) 25 mg 25 mg PO QAM 10/18/21 02/06/22 History tablet polyethylene glycol 3350 17 gram 17 g PO QAM 10/23/21 02/06/22 History oral powder packet (Miralax) furosemide 20 mg tablet 20 mg PO Q OTHER DAY PRN edema #30 01/11/22 02/06/22 Rx tabs Past Med/Surg History Medical History Anemia HX Colon cancer HX 2020 - SURGERY, HX CHEMO Degenerative disc disease lumbar History of COVID-19 Dx 09/2020 > symptoms at time of: fatigue, poor appetite, generalized weakness, body aches > resolved Hypertension Obesity OP (osteoporosis) Rectal mass Rectal stent placed during colonoscopy (hx) Surgical History History of colon resection Open lower anterior colon resection (01/26/2021): Grade view 1, Jackson #2, ETT 7.5 at [facility] ( + TAP block) History of colonoscopy History of left hip replacement History of total shoulder replacement Right reverse TSA: 05/26/18: Grade view 1, MAC#3, ETT 7.5 at [facility] Port-A-Cath in place (03/23/21) Insertion of Access Port with Fluoroscopy Dr. 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 How many Children do You have: 3 Feels Safe at Home: Yes Assistive Devices: Glasses Review of Systems Review of Systems: All systems reviewed & are unremarkable except as noted in HPI & below Physical Exam Constitutional: WD/WN, vitals as above Eyes: EOM intact bilaterally; no conjunctival abnormality ENMT: external ear and nose normal, oropharynx normal Neck: trachea midline, no thyromegaly normal visual inspection Respiratory: normal respiratory effort, lungs clear to auscultation no respiratory distress Cardiovascular: RRR, no murmur, no edema Gastrointestinal (Abdomen): Inspection/Auscultation: abdomen normal to inspection and + hypoactive bowel sounds; abdomen not distended Percussion/Palpation: + abdomen tender (Lower abdomen) and abdomen soft; no guarding and abdomen not rigid Musculoskeletal: no cyanosis or clubbing, extremities motor strength 5/5 Skin: no rashes, warm and dry Neurologic: moves all extremities and awake Psychiatric: Orientation: alert, oriented to person and cooperative Results & Data Results & Data ([facility]) Vital Signs (Past 12 Hours) Vital Signs Temp Pulse Pulse Resp BP BP Pulse Ox 02/06/22 19:00 74 18 177/106 H 94 02/06/22 17:46 85 18 177/106 H 91 02/06/22 17:40 98 H 18 95 02/06/22 15:05 36.6 C 98 H 18 148/102 H 95 O2 Del Method 02/06/22 19:00 Room Air 02/06/22 17:46 Room Air 02/06/22 17:40 Room Air 02/06/22 15:05 Room Air Code Status & VTE Plan VTE Prophylaxis Plan VTE Prophylaxis will be ordered: Yes PG Care Time/CCT Total # of Minutes Spent Total Time Spent with Patient: Total time spent is greater than 50% in coordination of care (as documented) at patient's floor/unit and/or counseling patient: Coding Level of Care Code 39212 Initial Inpt Care Lvl 3 Diagnoses Bowel obstruction K56.609 Hypertension I10 DVT prophylaxis Z29.9
[2022-02-06 20:39] LABS: Appearance Urine Clear (Clear); Bacteria Urine Automated Negative (Negative); Bilirubin Urine Negative (Negative); Blood Urine Negative (Negative); Color Urine Dark Yellow; Epithelial Cell Urine Auto >30 /lpf (0-5); Glucose Urine UA Negative (Negative); Ketones Urine Trace (Negative); Leukocyte Esterase Urine 1+ (Negative); Nitrite Urine Negative (Negative); Protein Urine Negative (Negative); RBC Urine Automated 0-4 /hpf (0-4); Specific Gravity Urine 1.021 (1.000-1.030); Urobilinogen Urine Negative (Negative); pH Urine 5.5 (4.5-7.5)
[2022-02-06] MEDS ORDERED: ACETAMINOPHEN 325 MG TAB PO PRN (23:50)
[2022-02-06] MEDS ORDERED: MoRPHine SULFATE 4 MG/ML 1 ML CARP\\VIAL IV PRN (23:50)
[2022-02-06] MEDS ORDERED: SOD PHOSPHATE/SOD BIPHOSPHATE ENEMA 132 ML BTL PR STA (23:50)
[2022-02-07] MEDS: ONDANSETRON INJ 2 MG/ML 2 ML VIAL IV PRN ×3 (00:13→14:09)
[2022-02-07] MEDS: LACTATED RINGER'S 1,000 ML IV SCH ×3 (00:14→22:06)
[2022-02-07] MEDS: IRBESARTAN 150 MG TAB PO SCH (08:59)
[2022-02-07 09:06] LABS: Hematocrit (blood only) 41.1 % (34.1-44.9); Hemoglobin 13.6 g/dl (12.0-16.0); Mean Corpuscular Hemoglobin 29.4 pg (25.0-34.0); Mean Corpuscular Hgb Conc 33.1 g/dL (32.0-36.0); Mean Corpuscular Volume 88.8 fL (80.0-100.0); Mean Platelet Volume 8.4 fL (9.4-12.3); Platelet Count 163 K/uL (130-400); RDW Coefficient of Variation 13.2 % (11.5-14.5); RDW Standard Deviation 42.3 fL (36.4-46.3); Red Blood Count 4.63 M/uL (3.93-5.22); White Blood Count 7.89 K/ul (4.8-10.8)
[2022-02-07 09:27] LABS: BUN Creatinine Ratio 18.8 (10-20); Calcium 8.8 mg/dl (8.5-10.1); Creatinine Clr Calc Pharmacy 93.3 ml/min; Est GFR (African American) 109.3 ml/min; Est GFR (Non-African American) 94.3 ml/min; Magnesium 2.2 mg/dl (1.7-2.4); Potassium 3.8 mmol/L (3.5-5.1)
--- NOTE | 2022-02-07 11:29 | Gastrointestinal Consultation ---
Date of Consultation February 07, 2022 Assessment & Plan (1) Bowel obstruction: 66 year old female with history of colon cancer s/p resection and chemotherapy who presented with what felt like pain that felt similar to past obstructions. She has a history of stricture in the area of her anastomosis. She was to have an outpatient colonoscopy since her last admission with issues but she did not have done. she has had several episodes of large bowel obstruction. Upon evaluation in the ED she did have CT scan of A/P that shown improved nonspecific colitis but another possible obstruction. - Discussed case with Dr. Brown and Dr. Reinoso. - will plan for Flex sigmoidoscopy today with dilation. Supervising Physician Co-Signing Physician Notes Agree with DOUG Hebert as above Patient presented to GI lab for consent for Flex sig with dilation, and subsequently developed nausea and small amount of bilious emesis. Discussed case with Dr. Kinga Clark of Anesthesia, and decision was made to transfer patient to OR for procedure. She does have some abdominal pain throughout, and notes slight distention. Gen: Chronic ill-appearing, NAD CVS: RRR Chest: CTA B/L, -W/R/R Abd: Soft, Distended, tender throughout, No bowel sounds Recommend continued NPO status Proceed with Flex Sig with dilation of Rectosigmoid anastomotic stricture. Patient had previously been advised to followup for repeat dilation, but has been lost to followup since October. I did inform her that she will need repeat dilations periodically, most likely monthly moving forward. History of Present Illness Reason for Consultation: large bowel obstruction, history of stricture. Requesting Physician: Dr. Will Jackson Attending Physician: Cleve Barba MD History of Present Illness Patient is a 66 year old female with history of colon cancer s/p resection and chemotherapy who presented with what felt like pain that felt similar to past obstructions. She has a history of stricture in the area of her anastomosis. She was to have an outpatient colonoscopy since her last admission with issues but she did not have done. she has had several episodes of large bowel obstruction. Upon evaluation in the ED she did have CT scan of A/P that shown improved nonspecific colitis but another possible obstruction. Last bowel movement was Saturday of this week. very small. Since admission she as given a fleets enema and did pass small amount of stool. no bleeding reported. since admission she did have one episode of emesis earlier this morning. admits to some nausea. rest of gi ros unremarkable. Flex sig - 11/21/21 stricture at rectosigmoid with dilation. Allergies Allergy/AdvReac Type Severity Reaction Status Date / Time alendronate sodium AdvReac Unknown GI Verified 02/06/22 18:29 [From Fosamax] Upset/Myalgia Home Medications Medication Instructions Recorded Confirmed Type irbesartan 150 mg tablet 150 mg PO QAM 30 days #30 tabs 06/14/21 02/06/22 Rx cholecalciferol (vitamin D3) 50 50 mcg PO QAM 06/16/21 02/06/22 History mcg (2,000 unit) tablet docusate sodium 100 mg capsule 100 mg PO BID #60 caps 10/07/21 02/06/22 Rx aspirin 81 mg chewable tablet 81 mg PO QAM 10/18/21 02/06/22 History pyridoxine (vitamin B6) 25 mg 25 mg PO QAM 10/18/21 02/06/22 History tablet polyethylene glycol 3350 17 gram 17 g PO QAM 10/23/21 02/06/22 History oral powder packet (Miralax) furosemide 20 mg tablet 20 mg PO Q OTHER DAY PRN edema #30 01/11/22 02/06/22 Rx tabs Patient History Medical History Anemia HX Colon cancer HX 2020 - SURGERY, HX CHEMO Degenerative disc disease lumbar History of COVID-19 Dx 09/2020 > symptoms at time of: fatigue, poor appetite, generalized weakness, body aches > resolved Hypertension Obesity OP (osteoporosis) Rectal mass Rectal stent placed during colonoscopy (hx) Surgical History History of colon resection Open lower anterior colon resection (01/26/2021): Grade view 1, Jackson #2, ETT 7.5 at [facility] ( + TAP block) History of colonoscopy History of left hip replacement History of total shoulder replacement Right reverse TSA: 05/26/18: Grade view 1, MAC#3, ETT 7.5 at [facility] Port-A-Cath in place (03/23/21) Insertion of Access Port with Fluoroscopy Dr. Bueno 03/23/21 Family History Father Parkinsonism Stroke Mother Anemia Colorectal cancer Brother Bicuspid aortic valve Other No family history of adverse response to anesthesia Social History Smoking Status: Never smoker Second Hand Exposure: No; Do You Dip or Chew Tobacco: No; Tobacco Cessation Education Requested by Patient: No Hx Alcohol Use: No Hx Substance Use: No Preferred Language: Ecuadorean Communication Ability: Effective Communication Tools: Language Line Fermenting Cellar Dropper Fermenting Cellar Dropper Required: No Beliefs That Will Affect Care: None marital status: Current Living Situation: Spouse Current Living Situation Comment: 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 How many Children do You have: 3 Other Information That Helps Us Care for You: No Feels Safe at Home: Yes Safety Concerns: Feels Safe At This Time Assistive Devices: Walker Review of Systems Review of Systems: All systems reviewed & are unremarkable except as noted in HPI & below Constitutional: + chills; no fever Respiratory: no dyspnea Cardiovascular: no chest pain Gastrointestinal: as per Subjective / HPI Physical Exam Constitutional: WD/WN, vitals as above Eyes: + anicteric sclerae and PERRL ENMT: external ear and nose normal, oropharynx normal Respiratory: normal respiratory effort, lungs clear to auscultation Cardiovascular: RRR, no murmur, no edema Gastrointestinal (Abdomen): mild diffuse tenderness, no guarding, soft. normal bowel sounds. Skin: no rashes, warm and dry Psychiatric: A+Ox3, euthymic affect Results & Data ([facility]) Vital Signs (Past 12 Hours) Vital Signs Temp Pulse Resp BP Pulse Ox O2 Del Method 02/07/22 05:22 36.9 C 76 16 132/78 92 Room Air PG Care Time/CCT Total # of Minutes Spent Total Time Spent with Patient: Total time spent is greater than 50% in coordination of care (as documented) at patient's floor/unit and/or counseling patient: Coding Level of Care Code 98859 Initial Inpt Care Lvl 3 Diagnoses Bowel obstruction K56.600 Intestinal obstruction extent: partial Intestinal obstruction type: unspecified (1) Bowel obstruction Intestinal obstruction extent: partial Intestinal obstruction type: unspecified Qualified Code(s): K56.600 - Partial intestinal obstruction, unspecified as to cause
[2022-02-07] MEDS ORDERED: SOD PHOSPHATE/SOD BIPHOSPHATE ENEMA 132 ML BTL PR STA (11:43)
--- NOTE | 2022-02-07 13:18 | Anesthesiology Consultation ---
Date of Service February 07, 2022 Assessment & Plan (1) Encounter for pre-operative examination: History Surgery Operation Date: 02/07/22 17:15 Proposed Procedures p Flexible Sigmoidoscopy Dr Brown - Bruce Simmons Case, DO Height/Weight Height: 5 ft 1.81 in Weight: 91.9 kg Allergies Allergy/AdvReac Type Severity Reaction Status Date / Time alendronate sodium AdvReac Unknown GI Verified 02/06/22 18:29 [From Fosamax] Upset/Myalgia Medications Home Medications Medication Instructions Recorded Confirmed Last Taken irbesartan 150 mg tablet 150 mg PO QAM 30 days #30 tabs 06/14/21 02/06/22 11/20/21 cholecalciferol (vitamin D3) 50 50 mcg PO QAM 06/16/21 02/06/22 11/20/21 mcg (2,000 unit) tablet docusate sodium 100 mg capsule 100 mg PO BID #60 caps 10/07/21 02/06/22 10/26/21 19:00 aspirin 81 mg chewable tablet 81 mg PO QAM 10/18/21 02/06/22 11/20/21 pyridoxine (vitamin B6) 25 mg 25 mg PO QAM 10/18/21 02/06/22 11/20/21 tablet polyethylene glycol 3350 17 gram 17 g PO QAM 10/23/21 02/06/22 11/21/21 oral powder packet (Miralax) furosemide 20 mg tablet 20 mg PO Q OTHER DAY PRN edema #30 01/11/22 02/06/22 Unknown tabs Active Medications Generic Name Dose Route Start Last Admin Trade Name Denzelq PRN Reason Stop Dose Admin Lactated Ringer's 1,000 mls @ 100 mls/hr 02/06/22 23:50 02/07/22 09:48 Lr IV 03/08/22 23:49 100 mls/hr .Q10H MARILU Administration Irbesartan 150 mg 02/07/22 09:00 02/07/22 08:59 Irbesartan 150 Mg Tab PO 03/09/22 08:59 Not Given QAM MARILU Morphine Sulfate 4 mg 02/06/22 23:50 02/07/22 07:18 Morphine Sulfate 4 Mg/Ml 1 Ml Carp\Vial IV 02/20/22 23:49 4 mg Q4H PRN Administration Severe Pain 7-10 Ondansetron HCl 4 mg 02/06/22 23:50 02/07/22 07:19 Ondansetron Inj 2 Mg/Ml 2 Ml Vial IV 03/08/22 23:49 4 mg Q4H PRN Administration Nausea Past Medical History Medical History Anemia HX Colon cancer HX 2020 - SURGERY, HX CHEMO Degenerative disc disease lumbar History of COVID-19 Dx 09/2020 > symptoms at time of: fatigue, poor appetite, generalized weakness, body aches > resolved Hypertension Obesity OP (osteoporosis) Rectal mass Rectal stent placed during colonoscopy (hx) Past Family History Family History Father Parkinsonism Stroke Mother Anemia Colorectal cancer Brother Bicuspid aortic valve Other No family history of adverse response to anesthesia Past Surgical History Surgical History History of colon resection Open lower anterior colon resection (01/26/2021): Grade view 1, Jackson #2, ETT 7.5 at [facility] ( + TAP block) History of colonoscopy History of left hip replacement History of total shoulder replacement Right reverse TSA: 05/26/18: Grade view 1, MAC#3, ETT 7.5 at [facility] Port-A-Cath in place (03/23/21) Insertion of Access Port with Fluoroscopy Dr. Bueno 03/23/21 Social History Smoking Status: Never smoker Do You Dip or Chew Tobacco: No Hx Alcohol Use: No Alcohol type: wine alcohol intake frequency: holidays/special occasions only Hx Substance Use: No substance use type: does not use Physical Exam Vital Signs Last Vital Signs Temp 36.9 C 02/07/22 05:22 Pulse 76 02/07/22 05:22 Resp 16 02/07/22 05:22 BP 132/78 02/07/22 05:22 Pulse Ox 92 02/07/22 05:22 O2 Del Method 02/07/22 05:22 Testing Laboratory Results 02/07/22 08:47 02/07/22 08:47 Urine Color Dark Yellow 02/06/22 15:30 Urine Appearance Clear (Clear) 02/06/22 15:30 Urine pH 5.5 (4.5-7.5) 02/06/22 15:30 Ur Specific [place] 1.021 (1.000-1.030) 02/06/22 15:30 Urine Protein Negative (Negative) 02/06/22 15:30 Urine Glucose (UA) Negative (Negative) 02/06/22 15:30 Urine Ketones Trace (Negative) H 02/06/22 15:30 Urine Nitrite Negative (Negative) 02/06/22 15:30 Ur Leukocyte Esterase 1+ (Negative) H 02/06/22 15:30 Urine WBC (Auto) 1-5 /hpf (0-5) 02/06/22 15:30 Urine RBC (Auto) 0-4 /hpf (0-4) 02/06/22 15:30 U Hyaline Cast (Auto) 10-30 /lpf (0-5) H 02/06/22 15:30 U Epithel Cells (Auto) >30 /lpf (0-5) H 02/06/22 15:30 Urine Bacteria (Auto) Negative (Negative) 02/06/22 15:30 Electrocardiogram Date: 01/30/22 Normal sinus rhythm Abnormal ECG When compared with ECG of 30-JAN-2021 09:06, No significant change was found Confirmed by Pilo Simpson ([id number]) on 02/02/2021 5:39:15 AM
[2022-02-07] MEDS ORDERED: PROPOFOL IV EMULSION 10 MG/ML 20 ML VIAL IV ONE ×2 (14:57→15:40)
[2022-02-07] MEDS ORDERED: SUCCINYLCHOLINE CHLORIDE 20 MG/ML 10 ML VIAL IV ONE (14:57)
[2022-02-07] MEDS ORDERED: ROCURONIUM BROMIDE 10 MG/ML 5 ML VIAL IV ONE (14:57)
[2022-02-07] MEDS ORDERED: LIDOCAINE 2% 20 MG/ML 5 ML SYR IV ONE (14:57)
[2022-02-07] MEDS ORDERED: fentaNYL citrate 100 MCG/2 ML VIAL ONE (15:01)
[2022-02-07] MEDS ORDERED: ePHEDrine sulfate 50 MG/ML SYR ONE (15:51)
[2022-02-07] MEDS ORDERED: ONDANSETRON INJ 2 MG/ML 2 ML VIAL ONE (15:51)
[2022-02-07] MEDS ORDERED: ALBUTEROL HFA INHALER 8.5 GM ONE (16:00)
--- NOTE | 2022-02-07 16:10 | GI REPORT ---
Patient Name: Jenna Tolbert Procedure Date: 02/07/2022 2:24 PM Date of : 1955 Admit Type: Inpatient Age: 66 Gender: Female Attending MD: Bruce Brown DO Procedure: Flexible Sigmoidoscopy Providers: Bruce Brown DO Referring MD: Cleve Barba Indications: Anastomotic stricture Medicines: General Anesthesia Complications: No immediate complications. Estimated Blood Loss: Estimated blood loss: none. Procedure: Pre-Anesthesia Assessment: - Prior to the procedure, a History and Physical was performed, and patient medications and allergies were reviewed. The patient's tolerance of previous anesthesia was also reviewed. The risks and benefits of the procedure and the sedation options and risks were discussed with the patient. All questions were answered, and informed consent was obtained. Prior Anticoagulants: The patient has taken no previous anticoagulant or antiplatelet agents. ASA Grade Assessment: IV - A patient with severe systemic disease that is a constant threat to life. After reviewing the risks and benefits, the patient was deemed in satisfactory condition to undergo the procedure. After obtaining informed consent, the endoscope was passed under direct vision. Throughout the procedure, the patient's blood pressure, pulse, and oxygen saturations were monitored continuously. The Colonoscope was introduced through the anus and advanced to the splenic flexure. The flexible sigmoidoscopy was accomplished without difficulty. The patient tolerated the procedure well. The quality of the bowel preparation was poor. Findings: The perianal and digital rectal examinations were normal. There was evidence of a prior end-to-end colo-colonic anastomosis in the rectum. This was non-patent and was characterized by severe stenosis. The anastomosis was traversed after dilation. A TTS dilator was passed through the scope. Dilation with a 12-13.5-15 mm colonic balloon dilator was performed. The dilation site was examined and showed moderate improvement in luminal narrowing. Multiple small-mouthed diverticula were found in the sigmoid colon. Impression: - Preparation of the colon was poor. - Non-patent end-to-end colo-colonic anastomosis, characterized by severe stenosis. Dilated. - Diverticulosis in the sigmoid colon. - No specimens collected. Recommendation: - [facility]. - Advance diet as tolerated. - Repeat flexible sigmoidoscopy in 4 weeks for retreatment. - Discussed case with Dr. Bueno of Surgery, who performed her prior colon resection, and he agrees with plan of repeat dilation in 4 weeks. Bruce Brown, DO 02/07/2022 4:09:55 PM This report has been signed electronically. Note Initiated On: 02/07/2022 2:24 PM Number of Addenda: 0 I attest to the content of the Intraoperative Record and orders documented therein, exceptions below {[id number]}
--- NOTE | 2022-02-07 16:25 | Anesthesiology Progress Note ---
Date of Service February 07, 2022 Anesthesia Post Procedure Vital Signs Vital Signs: Temp Pulse Pulse Pulse Resp BP BP 02/07/22 16:20 93 H 18 145/91 H 02/07/22 16:10 101 H 20 160/80 H 02/07/22 16:04 36.4 C L 104 H 14 180/115 H 02/07/22 13:29 36.6 C 85 18 147/103 H 02/06/22 23:00 36.8 C 91 H 18 143/90 H 02/07/22 05:22 36.9 C 76 16 132/78 02/06/22 22:18 75 18 151/91 H 02/06/22 22:00 75 18 151/91 H 02/06/22 19:00 74 18 177/106 H 02/06/22 17:46 85 18 177/106 H 02/06/22 17:40 98 H 18 Pulse Ox O2 Del Method O2 Flow Rate 02/07/22 16:20 97 Oxymask 4 02/07/22 16:10 98 Oxymask 4 02/07/22 16:04 93 Oxymask 4 02/07/22 13:29 93 Room Air 02/06/22 23:00 95 Room Air 02/07/22 05:22 92 Room Air 02/06/22 22:18 94 Room Air 02/06/22 22:00 94 Room Air 02/06/22 19:00 94 Room Air 02/06/22 17:46 91 Room Air 02/06/22 17:40 95 Room Air Pain Intensity Abdomen: Pain Intensity: 8 Transfer of Care Handoff Completed per policy Notes Mental Status: alert / awake / arousable Patient Amnestic to Procedure: Yes Nausea / Vomiting: adequately controlled Pain: adequately controlled Airway Patency, RR, SpO2: stable & adequate BP & HR: stable & adequate Hydration State: stable & adequate Anesthetic Complications: no major complications apparent
--- NOTE | 2022-02-07 16:58 | XRay Report ---
KUB HISTORY: Acute generalized abdominal pain Anastomotic stricture COMPARISON: CT abdomen and pelvis 02/06/2022 FINDINGS: Gaseous distention of the large bowel measuring up to a proximally 7 cm is generally stable from prior. Air-filled prominent loops of small bowel measure up to 2.5 cm. Anastomotic suture mater ial noted within the mid pelvis. No renal calculi. No ureteral calculi. No pneumoperitoneum or pneuma tosis. Left hip total joint arthroplasty. Degenerative changes of the spine, pelvis and right hip. No fracture. Cardiomegaly with left midlung atelectasis versus scarring. Partially imaged catheter proj ects over the right heart. IMPRESSION: Anastomotic suture material within the pelvis redemonstrated along with persistent gaseous distention of the large bowel. Follow-up recommended to exclude a developing large bowel obstruction. ACT 112: Negative or not required by law. The above report was generated using voice recognition software. It may contain grammatical, syntax o r spelling errors. Electronically signed by: Stephon Capps M.D. 02/07/2022 4:57 PM
--- NOTE | 2022-02-07 17:29 | Hospitalist Progress Note ---
Date of Service February 07, 2022 Assessment & Plan (1) Bowel obstruction: Plan: Has had prior LBOs at the site of her anastomosis. Underwent several dilations with Dr. Brown and Dr. Reinoso. - Pt kept NPO - Pain control ordered with Morphine - GI consulted, appreciate assistance-for flex sig this afternoon and dilation of strictured anastomosis site - Following procedure, diet advancement per GI - Can cap IVF when tolerating PO (2) Hypertension: Plan: - Continue irbesartan (3) DVT prophylaxis: Plan: SCDs Plan As above. Anticipate d/c home when tolerating diet following procedure and passing flatus and/or BM. Plan to be d/w Dr. Barba. Admission and Anticipated Discharge Date Admission Date: February 06, 2022 Subjective Patient was seen on rounds this morning. She is Eritrean speaking and the use of a tele-carbonator was utilized. She reports vague diffuse (mostly lower) abdominal discomfort and spasms. Had a few episodes of emesis in the ER and this AM. Presently denies nausea. Was given a fleets enema overnight w/o response. No chest pain, dyspnea, fever/chills, or gu symptoms. She is for procedure this afternoon with GI to perform dilation of strictured anastomosis site from prior colon resection. Review of Systems Review of Systems: All systems reviewed and are unremarkable except as noted in HPI and below. Denies fever, chills, fatigue, headache, nasal congestion, sore throat, cough, chest pain, shortness of breath, palpitations, orthopnea, PND, constipation, dysuria, hematuria, frequency, back pain, joint pain or swelling, easy bruising or bleeding, skin lesions or rashes. Physical Exam Physical Exam: GENERAL: 66 yo Well-developed, well-nourished but overweight WF. NAD. LUNGS: Clear to auscultation bilaterally. No W/R/R. CARDIOVASCULAR: Regular rate and rhythm. 3/6 KRISS ABDOMEN: Soft, mildly distended and TTP across lower portion of abd. No rigidity. Hypoactive BS. EXTREMITIES: No edema. Non-tender. Peripheral pulses +2/4. NEUROLOGIC: A&O x3. Nonfocal PSYCHIATRIC: Cooperative. Appropriate mood and affect. SKIN: Warm, dry, intact. No rashes or lesions. Results & Data Results & Data ([facility]) Vital Signs (Past 12 Hours) Vital Signs Temp Pulse Pulse Resp BP Pulse Ox O2 Del Method 02/07/22 17:07 36.5 C 80 18 156/82 H 92 Nasal Cannula 02/07/22 16:40 37.1 C 92 H 16 135/96 94 Nasal Cannula 02/07/22 16:30 94 H 20 146/76 H 93 Room Air 02/07/22 16:20 93 H 18 145/91 H 97 Oxymask 02/07/22 16:10 101 H 20 160/80 H 98 Oxymask 02/07/22 16:04 36.4 C L 104 H 14 180/115 H 93 Oxymask 02/07/22 13:29 36.6 C 85 18 147/103 H 93 Room Air 02/07/22 05:22 36.9 C 76 16 132/78 92 Room Air O2 Flow Rate 02/07/22 17:07 2 02/07/22 16:40 2 02/07/22 16:30 02/07/22 16:20 4 02/07/22 16:10 4 02/07/22 16:04 4 02/07/22 13:29 02/07/22 05:22 Laboratory Results 02/07/22 08:47 02/07/22 08:47 PG Care Time/CCT Total # of Minutes Spent Total Time Spent with Patient: Total time spent is greater than 50% in coordination of care (as documented) at patient's floor/unit and/or counseling patient: Coding Level of Care Code 03158 Subseq Hosp Care Lvl 2 Diagnoses Bowel obstruction K56.609 Hypertension I10 DVT prophylaxis Z29.9
[2022-02-08] MEDS: LACTATED RINGER'S 1,000 ML IV SCH ×2 (06:53→08:03)
[2022-02-08] MEDS: IRBESARTAN 150 MG TAB PO SCH (09:12)
--- NOTE | 2022-02-08 15:01 | Discharge Summary ---
Date of Service February 08, 2022 Admission HPI Per Admitting Provider 66yo F w/ hx of colon cx s/p resection and chemotherapy presents with likely large bowel obstruction. Has a stricture in the area of the anastomosis and has several episodes of large bowel obstruction. Was in her normal state of health until Saturday when she started to have mild, lower abdominal pain. Last BM was on Saturday and was very small. Prior to that, had been having 1-2 BMs/day which she reports were soft, non-bloody and non- melenic. Pain worsened over the course of Saturday through today and she presented to the ER. CT a/p in the ER shows improving colitis, but possible large bowel obstruction. Principal Diagnosis Large bowel obstruction d/t anastomosis stricture s/p dilation Discharge Exam GENERAL: 66 yo Well-developed, well-nourished but overweight WF. NAD. LUNGS: Clear to auscultation bilaterally. No W/R/R. CARDIOVASCULAR: Regular rate and rhythm. 3/6 KRISS ABDOMEN: Soft, nontender nondistended. BS present in all 4 quad. EXTREMITIES: No edema. Non-tender. Peripheral pulses +2/4. NEUROLOGIC: A&O x3. Nonfocal PSYCHIATRIC: Cooperative. Appropriate mood and affect. SKIN: Warm, dry, intact. No rashes or lesions. Discharge Data Allergies Allergy/AdvReac Type Severity Reaction Status Date / Time alendronate sodium AdvReac Unknown GI Verified 02/06/22 18:29 [From Fosamax] Upset/Myalgia Consultations 02/06/22 19:24 ED Decision to Admit Stat 02/06/22 23:50 Consult Gastroenterology Routine Procedures Performed Operation Date: 02/07/22 17:15 Actual Procedures p Flexible Sigmoidoscopy - Bruce Vilchis. Case, DO Ordered Studies Abdomen/Pelvis CT 02/06/22 17:25 CT OF THE ABDOMEN AND PELVIS WITH CONTRAST CLINICAL HISTORY: Lower abdominal pain. COMPARISON STUDY: CT of the abdomen and pelvis October 03, 2021. TECHNIQUE: Following IV administration of 90 mL of Optiray, axial images of the abdomen and pelvis were obtained from the lung bases to the proximal femurs. Images were reviewed in the axial, sagittal, and coronal planes. IV contrast was administered without complication. Automated exposure control was utilized for the study. A dose lowering technique was utilized adhering to the principles of ALARA. CT DOSE: 878.12 mGy.cm FINDINGS: No pneumatosis, free air or portal venous gas is present. Exam is mildly compromised by motion artifact. There are gallstones within the gallbladder. There is no evidence for acute cholecystitis. No biliary or pancreatic ductal dilatation is present. Spleen, adrenal glands and kidneys are unremarkable with the exception of a 1.4 cm cyst within lower pole of the right kidney. The appendix is normal. No enlarged abdominal or pelvic lymph nodes are present. Postoperative findings consistent with rectosigmoid resection are noted. There is mild wall thickening of the distal descending colon with mild pericolonic stranding. A moderate to large amount of stool within the colon is noted. The colon is mildly distended. These findings have improved when compared to exam of October 03, 2021. Ahaustral appearance of the descending colon is noted. No extraluminal gas is present. No fluid collection is suggest an abscess. Left hip arthroplasty is noted. Major vasculature is patent. IMPRESSION: 1. Status post rectosigmoid resection. Mild wall thickening and pericolonic stranding of the descending colon. This represents a nonspecific colitis. Findings decreased when compared to CT of October 03, 2021. Therefore, this could reflect recurrent or residual colitis. 2. Moderate to large amount of stool within the colon with moderate colonic dilatation with possible caliber change at the level the rectosigmoid anastomosis. A partial colonic obstruction would be difficult to exclude. 3. Cholelithiasis. ACT 112: Negative or not required by law. Electronically signed by: Hakeem Daigle M.D. 02/06/2022 6:47 PM KUB X-Ray 02/07/22 16:10 KUB HISTORY: Acute generalized abdominal pain Anastomotic stricture COMPARISON: CT abdomen and pelvis 02/06/2022 FINDINGS: Gaseous distention of the large bowel measuring up to a proximally 7 cm is generally stable from prior. Air-filled prominent loops of small bowel measure up to 2.5 cm. Anastomotic suture material noted within the mid pelvis. No renal calculi. No ureteral calculi. No pneumoperitoneum or pneumatosis. Left hip total joint arthroplasty. Degenerative changes of the spine, pelvis and rig ht hip. No fracture. Cardiomegaly with left midlung atelectasis versus scarring. Partially imaged catheter projects over the right heart. IMPRESSION: Anastomotic suture material within the pelvis redemonstrated along with persistent gaseous distention of the large bowel. Follow-up recommended to exclude a developing large bowel obstruction. ACT 112: Negative or not required by law. The above report was generated using voice recognition software. It may contain grammatical, syntax or spelling errors. Electronically signed by: Stephon Capps M.D. 02/07/2022 4:57 PM Hospital Course (1) Bowel obstruction: Has had prior LBOs at the site of her anastomosis. Underwent several dilations with Dr. Brown and Dr. Reinoso. - Pt kept NPO - Pain control ordered with Morphine - GI consulted, appreciate assistance-s/p flex sig for dilation of strictured anastomosis site on 02/07 - Following procedure, diet advanced to clears which she tolerated - D/w GI, pt is passing flatus and had BM, no abd pain or n/v - diet advanced to regular for lunch - IVF capped - Pt tolerated lunch and will be discharged home - She will have a follow up arranged in Dr. Brown's office as she will need regular (likely monthly) dilations to prevent recurrence (2) Hypertension: - Continue irbesartan Plan Patient is medically and hemodynamically stable for discharge home today with pcp follow up within 1 week as well as GI follow up. Plan d/w Dr. Barba who is in agreement. Total Time Total Time Spent Total Time Spent (In Minutes): >30 minutes Discharge Plan Discharge Items Patient Disposition: Home - Self-Care Reason For Visit: LARGE BOWEL OBSRUCTION Discharge Diagnosis: bowel blockage Activity: Resume your previous activity Non-emergency contact: Primary Care Provider and Clay Worker Call non-emergency contact if: you have any medication questions Follow-up/Referrals: PCP,NO [Primary Care Provider] - Diet: Regular Addtl Attending Provider Instructions: You were hospitalized due a blockage in your large intestine. You were taken for a procedure to open up the blocked area by Dr. Brown. It is felt that you will have to likely undergo these procedures regularly to keep this from reoccurring. You are being set up for an appointment to follow up with Dr. Brown in the office. His office will then arrange for the date of the next procedure. It is advised that you follow up with a primary care provider within 1 week of discharge. If you have any questions following your discharge, contact the nonemergency number listed on your paperwork. In the event of a medical emergency, call 911. Pending Studies at Discharge: No Stand-Alone Forms: My [facility] Mobile Medical Testing, Smoking Cessation Medications and DC Order Prescriptions: Continued cholecalciferol (vitamin D3) 50 mcg (2,000 unit) tablet 50 mcg PO QAM pyridoxine (vitamin B6) 25 mg tablet 25 mg PO QAM aspirin 81 mg tablet,chewable 81 mg PO QAM irbesartan 150 mg tablet 150 mg PO QAM 30 Days Qty: 30 11RF furosemide 20 mg tablet 20 mg PO Q OTHER DAY PRN (Reason: edema) Qty: 30 2RF polyethylene glycol 3350 [Miralax] 17 gram powder in packet 17 g PO QAM Rx Instructions: mix with 8 oz liquid of your choice docusate sodium 100 mg Capsule 100 mg PO BID Qty: 60 0RF Discharge Orders: Discharge Order (Routine); Ordered 02/08/22 Ordered By: Lois Peña Admission Data Admit Date/Time: 02/06/22 19:54 Attending Provider: Cleve Barba Admit Provider: Will Jackson Primary Care Provider: PCP,NO Other Providers: Will Jackson ; Bruce Brown Other Interventions: Discharge Summary Assessment (RN) Last Done: 02/08/22 14:57 Coding Level of Care Code D/C DAY MANAGEMENT >30 MINS Diagnoses Bowel obstruction K56.609 Hypertension I10
== END 2022-02-08 15:39 | disposition home or self-care (01) | DRG 394 ==
LOC: ED 15:00 → 3E 19:54 → SUATTDRO 19:54 → 3E 22:18